=== PATIENT | female | born 1940 | race Caucasian/White ===

== ENCOUNTER 2023-12-28 22:36 | Emergency (ER) | payer MEDICARE, MEDICAID, SELFPAY ==
[2023-12-28 22:44] VITALS: BP 115/85; PULSE 67; RESP 12; TEMP 37.1; O2SAT 95
[2023-12-28 22:46] VITALS: PULSE 63; RESP 20; O2SAT 99
[2023-12-28 22:56] VITALS: BMI 25.7
--- NOTE | 2023-12-28 22:59 | PD.EDSOB ---
ED SOB =RME/HPI General Chief Complaint: Shortness of Breath/Dyspnea Stated Complaint: SOB Time Seen by Provider: 12/28/23 22:42 Arrival date/time: 12/28/23 22:36 RME / HPI RME / HPI Narrative: Dr. Pérez?s Main ED Evaluation: 83yo female with pmhx TBI, HTN, HLD, GERD BIBA from [facility] presents to the ED for a chief complaint of shortness of breath x 1 hour. When asked if the patient has had chest pain or a cough, she nods her head yes. Patient does not really talk and is unable to provide any history. No known allergies. Related Data Home Medications ?Medication ?Instructions ?Recorded ?Confirmed bisacodyl 10 mg rectal suppository See Rx Instructions .Route 08/15/19 08/15/19 (Dulcolax (bisacodyl)) .COMPLEX PRN Constipation calcium 500 mg (as 1 tab PO BID 08/15/19 08/15/19 carbonate)-vitamin D3 5 mcg (200 unit) tablet (Oyster Shell Calcium-Vitamin D3) docusate sodium 250 mg capsule 250 mg PO BID 08/15/19 08/15/19 magnesium hydroxide 400 mg/5 mL See Rx Instructions .Route 08/15/19 08/15/19 oral suspension (Milk of Magnesia) .COMPLEX PRN Constipation sodium phosphates 19 gram-7 See Rx Instructions .Route 08/15/19 08/15/19 gram/118 mL enema (Fleet Enema) .COMPLEX PRN Constipation Previous Rx's ?Medication ?Instructions ?Recorded balsam ben-castor oil topical 1 applicatio top BID #60 grams 08/27/19 ointment (Venelex topical ointment) levothyroxine 25 mcg tablet 75 mcg (3 x 25 mcg) PO ACBR #30 08/27/19 tabs midodrine 2.5 mg tablet 2.5 mg PO TID #90 tabs 08/27/19 amoxicillin 875 mg-potassium 1 tab PO BID #10 tabs 12/29/23 clavulanate 125 mg tablet Allergies Allergy/AdvReac Type Severity Reaction Status Date / Time No Known Allergies Allergy Verified 04/12/18 10:58 Review of Systems Review of Systems ROS Unobtainable: other (due to the patient mumbling) Past Medical History Past Medical History NEUROLOGIC: Positive Head Trauma and Traumatic Brain Injury CARDIAC: Positive Cardiac Disorders, Atherosclerotic Heart Disease, Peripheral Vascular Disease, Hypercholesterolemia, Hypertension and Hypotension; Negative Congestive Heart Failure RESPIRATORY: Positive Bronchitis; Negative Chronic Obstructive Pulmonary Disease (COPD) GASTROINTESTINAL: Positive Gastroesophageal Reflux Disease GENITOURINARY: Negative Renal Disease MUSCULOSKELETAL: Positive Musculoskeletal Disorders, Arthritis and Degenerative Joint Disease ENT: Positive Cataracts and Head Trauma ENDOCRINE: Positive Hypothyroidism; Negative Diabetes Mellitus Type 1 or Diabetes Mellitus Type 2 PSYCHO/SOCIAL: Positive Depression OTHER HISTORY: Negative Cancer Social History SMOKING STATUS: Never smoker ED Exam Narrative Physical exam: GENERAL APPEARANCE: AxOx4, generally well-appearing, no acute distress. HEENT: NC, AT. MMM. EOMI, clear conjunctiva, oropharynx clear. NECK: Supple without lymphadenopathy. No stiffness or restricted ROM. HEART: Normal rate and regular rhythm, normal S1/S1, no m/r/g LUNGS: Diminished breath sounds bilaterally. Rhoncherous when she mumbles. Is saturating at 92% on room air. No crackles or wheezes are heard. ABDOMEN: Soft, nontender, nondistended with good bowel sounds heard. BACK: No midline C/T/L spine pain or deformity, No CVAT, no obvious deformity. EXTREMITIES: Without cyanosis, clubbing or edema. MUSCULOSKELETAL: FROM of all major joints, no chest tenderness NEUROLOGICAL: Grossly nonfocal. Alert and oriented, moving all 4 extremities. CN not formally tested but appear grossly intact. Observed to ambulate with normal gait. Skin: Warm and dry without any rash. Course Course Course Narrative: CXR is ordered for determining the etiology of shortness of breath. Quality Measures none Orders Category Date Time Status Bedside COVID-19 Antigen Test NOW Care 12/28/23 23:00 Active Bedside Influenza A&B Antigen Test NOW Care 12/28/23 23:[address] Screening NOW Care 12/29/23 00:07 Active EKG (ED ONLY) *Do not use* NOW Care 12/28/23 23:[address] angio chest Stat Exams 12/29/23 00:07 Taken EKG (ED Only) Stat Exams 12/28/23 23:00 Draft XR chest 1V Stat Exams 12/28/23 23:00 Completed CBC Stat Lab 12/28/23 23:28 Completed CMP [Comprehensive Metabolic Panel] Stat Lab 12/28/23 23:28 Completed RSV [Respiratory Syncytial Virus Ag] Stat Lab 12/29/23 00:08 Completed cefTRIAXone/D5w 1gm IV premix [Rocephin/D5w 1gm IV Med 12/29/23 02:49 Discontinued premix] 50 ml IV X1 Vital Signs Vital signs: Vital Signs Temperature 98.8 F 12/28/23 22:44 Pulse Rate 67 12/28/23 22:44 Respiratory Rate 12 12/28/23 22:44 Blood Pressure 115/85 H 12/28/23 22:44 Pulse Oximetry (%) 95 12/28/23 22:44 Oxygen Delivery Method Room Air 12/28/23 22:44 Shortness of Breath / Dyspnea MDM Narrative MDM Narrative:: Scribe Attestation: 12/28/23 - Mitra Downs, scribing for and in the presence of Dr. Pérez. Patient data External records reviewed:: [facility] previous records (Per chart review, patient was seen here on 08/11/19 for a UTI.) and Long Term records (Per [facility], patient is a full code.) Clinical information provided by:: none Social determinants that could affect healthcare access:: none Patient has the following chronic illnesses:: TBI, HTN, HLD, GERD How is presenting disease/condition affected by chronic disease/condition?: exacerbated by Evaluation data The following diagnostics were reviewed and interpreted by me:: lab results, radiology exam(s) and EKG tracing(s) Lab and/or radiology exams considered but not ordered:: none Interpretation Summary: EKG done at 2324, sinus rhythm, rate of 63, RBBB, normal intervals, no acute ST or T wave changes, no STEMI, according to my interpretation. ---- [place] [facility] Report Signed Patient: ALIYA LYLE. Record#: [id number] Birthdate: 1940 Age/Sex: 83 / F Location: [facility] Attending Dr: Ordering Physician: Laureano Pérez MD Date of Service: 12/28/23 Procedure(s): XR chest 1V Accession Number(s): [id number] cc: Laureano Pérez MD; Manuel Orta MD; John Maharaj MD~ Examination: AP chest single view Technique one AP portable semiupright chest single view Exam date and time: December 28, 2023 1112 hrs. Comparison August 24, 2019 Indications: Onset shortness of breath today. Findings: No significant cardiac enlargement Moderate ectasia enlargement thoracic aorta Subsegmental atelectasis both lower lung zones No pneumonia or pulmonary edema Prominent osteopenia Impression: No pneumonia or pulmonary edema Dictated By: Manuel Orta MD Signed By: <Electronically signed by Manuel Orta MD in OV> 12/28/23 2350 ----- [facility] Preliminary Report Draft Patient: ALIYA LYLE Record#: [id number] Birthdate: 1940 Age/Sex: 83 / F Location: [facility] Attending Dr: Ordering Physician: Date of Service: Procedure(s): Accession Number(s): cc: ~ CT angiogram of the chest with intravenous contrast (axial sections with sagittal and coronal reformats) December 29, 2023 at 0145 hours. Clinical History: Rule out pulmonary thromboembolism Technique:Helical axial sections with sagittal and coronal reformats of the chest were obtained with intravenous contrast. Iterative reconstruction technique was employed to reduce patient radiation exposure. 3D/MIP reconstructed images were also provided. Comparison: No prior study is available for comparison. Findings: There is no filling defect within the pulmonary artery divisions to suggest pulmonary thromboembolism. The mediastinum demonstrates no evidence of mass or lymphadenopathy. The thoracic aorta is unremarkable. There is no pericardial effusion. Mucous plugging in the right lower lobe. Consolidation in the right lower lobe. Smaller consolidation in the right upper lobe. No evidence of pleural effusion or pneumothorax. Degenerative changes of the imaged portions of the spine. No acute fractures. The visualized upper abdominal viscera are unremarkable. Elevated left hemidiaphragm. Impression: 1. No CT evidence of pulmonary thromboembolism. 2. Mucous plugging in the right lower lobe. 3. Small foci of pneumonia in the right upper and lower lobes. 4. Elevated left hemidiaphragm of uncertain etiology. Report Electronically Signed By: Aman Reyes 12/29/2023 2:39:32 AM [EST] Medications / Prescriptions Medications or Prescriptions considered but not ordered:: none Medication administrations:: Medication Administration History Discontinued Medications Ceftriaxone Sodium/Dextrose (Rocephin/D5w 1gm Iv Premix) 50 mls @ 100 mls/hr IV X1 ONE Stop: 12/29/23 03:18 Last Infusion: 12/29/23 03:28 Dose: Infused Documented By: Admin: 12/29/23 02:55 Dose: 100 mls/hr Documented By: PAIGE see above, if any Consultations Consultation(s) initiated? (list below): No Diagnosis Shortness of Breath Differential Diagnosis: community acquired pneumonia, pulmonary embolism and other (aspiration pneumonia, bronchitis) Most likely diagnosis given after review of the tests above:: see below Admission Indicated Admission indicated?: not indicated Admission Request Was there a request for admission?: No Disposition Plan Disposition Plan: Discharge Discharge Attestation Discharge Attestation: The patient and all family members were given an opportunity to ask questions and understood the discharge instructions. Discharge instructions specifically effects, indications for sooner follow up or return to the emergency department, and the expected course of current diagnosis. Patient condition: Stable Discharge Plan Plan Patient Disposition: HOME (Self Care) Prescriptions/Referrals Prescriptions/Med Rec: New amoxicillin-pot clavulanate 875-125 mg tablet 1 tab PO BID Qty: 10 0RF No Action magnesium hydroxide [Milk of Magnesia] 400 mg/5 mL Suspension See Rx Instructions .ROUTE .COMPLEX PRN (Reason: Constipation) Rx Instructions: GIve 30 mls by mouth every 2nd day if no bowel movement as needed bisacodyl [Dulcolax (bisacodyl)] 10 mg Suppository See Rx Instructions .ROUTE .COMPLEX PRN (Reason: Constipation) Rx Instructions: Insert 1 suppository rectally every third day if no bowel movement as needed if Milk of Magnesia ineffective Fleet Enema 19-7 gram/118 mL Enema See Rx Instructions .ROUTE .COMPLEX PRN (Reason: Constipation) Rx Instructions: Insert 1 applicator rectally every third day if no bowel movement as needed, if dulcolax suppository ineffective calcium carbonate-vitamin D3 [Oyster Shell Calcium-Vit D3] 500 mg(1,250mg) -200 unit Tablet 1 tab PO BID docusate sodium 250 mg Capsule 250 mg PO BID balsam ben-castor oil [Venelex] Ointment 1 applicatio top BID Qty: 60 0RF levothyroxine 25 mcg Tablet 75 mcg PO ACBR Qty: 30 0RF midodrine 2.5 mg Tablet 2.5 mg PO TID Qty: 90 0RF Referrals: John Maharaj MD [Primary Care Provider] - In 1 week Problem List Clinical Impression: Pneumonia, Mucus plugging of bronchi Patient/Caregiver Discharge Instructions Education Materials: ED Pneumonia (Adult) Additional Instructions: Chest physio for 5 days. Take all antibiotics as prescribed Print Language: U[place] Stand Alone Forms: [employer] Award Info., Patient Portal Info Letter
--- NOTE | 2023-12-28 23:00 | EKG_ITS ---
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
[2023-12-28 23:37] LABS: Basophils % (Auto) 1 % (0-2.5); Eosinophils # (Auto) 0.2 Thou/mm3 (0.0-0.5); Eosinophils % (Auto) 2 % (0-10); Hematocrit 40.4 % (36.0-46.0); Hemoglobin 12.7 g/dL (12.0-16.0); Immature Granulocytes % (Auto) 0 % (0-0); Immature Granulocytes Auto 0.01 Thou/mm3 (0.00-0.00); Lymphocytes # (Auto) 2.6 Thou/mm3 (1.0-4.8); Lymphocytes % (Auto) 38 % (10-50); Mean Corpuscular HGB Conc 31.4 g/dl (31.0-37.0); Mean Corpuscular Hemoglobin 29.7 pg (25.0-35.0); Mean Corpuscular Volume 94 fL (80-100); Monocytes # (Auto) 0.6 Thou/mm3 (0.0-0.8); Monocytes % (Auto) 8 % (0-12); Neutrophils # (Auto) 3.4 Thou/mm3 (1.8-7.7); Neutrophils % (Auto) 51 % (37-80); Nucleated Red Blood Cell % 0 /100 WBC (0); Platelet Count 247 Thou/mm3 (140-440); RDW Standard Deviation 47.6 fL (36.4-46.3); Red Blood Count 4.28 Miln/mm3 (4.00-5.20); White Blood Count 6.8 Thou/mm3 (3.6-11.0)
[2023-12-28 23:56] LABS: Alanine Aminotransferase 18 U/L (10-49); Albumin, Serum 3.9 gm/dL (3.4-4.8); Albumin/Globulin Ratio 1.3 (1.2-2.2); Alkaline Phosphatase 64 U/L (46-116); Anion Gap 3 (7-16); Aspartate Amino Transferase 18 U/L (0-34); BUN/Creatinine Ratio 28 Ratio (12-20); Bilirubin,Total 0.3 mg/dL (0.3-1.2); Blood Urea Nitrogen 17 mg/dL (9-23); Calcium 9.9 mg/dL (8.3-10.6); Carbon Dioxide 32.5 mMol/L (20.0-31.0); Chloride 103 mMol/L (98-107); Creatinine (Component) 0.6 mg/dL (0.6-1.3); Estimated Creatinine Clearance 67.3 mL/min (>60); Glucose 88 mg/dL (74-106); Osmolality,Calculated 276 (275-295); Sodium 138 mMol/L (136-145); Total Protein 6.9 gm/dL (5.7-8.2); eGFR > 60 See Note
--- NOTE | 2023-12-29 00:07 | XR_ITS ---
Examination: CTA chest with intravenous contrast 2-D reconstructions 3-D reconstructions, vascular Date and time of exam: December 29, 2023 at 0145 hrs. Indications: Shortness of breath chest pain today CTDI: vol (mGy) 26.07 DLP: (mGycm) 724 Technique: Multiple axial sections of the thorax have been obtained. 3 mm slice thickness, from below the hemidiaphragms to above the apices of the lungs. Mediastinal and lung density settings have been obtained. 2-D sagittal and coronal reconstructions. 3-D angiographic renderings, 3-D volume renderings, 3D post processing, vascular maximum intensity projections obtained. Contrast administered is 100 cc [id number]. Low dose protocols were performed. One or more of the following dose reduction techniques were used; automated exposure control, adjustment of the mA and/or KV according to patient size, use of iterative reconstruction technique. Findings: Heavy thoracic aortic calcification no aneurysmal dilatation No significant enlargement pulmonary artery segments, no pulmonary artery emboli Heavy calcification left anterior descending coronary artery Secretions in right lower lobe bronchi with atelectasis versus pneumonia in the right lower lobe No visualized liver or splenic lesions No gallstones Spleen is not enlarged No pancreatic mass Kidneys partially visualized no hydronephrosis Elevated left hemidiaphragm Prominent thoracolumbar levoscoliosis Impression: Negative for pulmonary artery emboli Atelectasis versus mild pneumonia in the right lower lobe
[2023-12-29 00:39] VITALS: BP 105/63; PULSE 66; RESP 10; O2SAT 99
[2023-12-29 00:58] LABS: Respiratory Syncytial Virus Ag Negative (Negative)
[2023-12-29 02:00] VITALS: BP 96/60; PULSE 66; RESP 17; O2SAT 95
--- NOTE | 2023-12-29 02:40 | PRELIM_ITS ---
CT angiogram of the chest with intravenous contrast (axial sections with sagittal and coronal reforma ts) December 29, 2023 at 0145 hours.Clinical History: Rule out pulmonary thromboembolism Technique:He lical axial sections with sagittal and coronal reformats of the chest were obtained with intravenous contrast. Iterative reconstruction technique was employed to reduce patient radiation exposure. 3D/LA P reconstructed images were also provided. Comparison: No prior study is available for comparison. Fi ndings:There is no filling defect within the pulmonary artery divisions to suggest pulmonary thromboe mbolism. The mediastinum demonstrates no evidence of mass or lymphadenopathy. The thoracic aorta is u nremarkable. There is no pericardial effusion. Mucous plugging in the right lower lobe.Consolidation in the right lower lobe. Smaller consolidation in the right upper lobe.No evidence of pleural effusio n or pneumothorax.Degenerative changes of the imaged portions of the spine. No acute fractures.The vi sualized upper abdominal viscera are unremarkable.Elevated left hemidiaphragm.Impression:1. No CT kelsie dence of pulmonary thromboembolism.2. Mucous plugging in the right lower lobe.3. Small foci of pneumo stacey in the right upper and lower lobes.4. Elevated left hemidiaphragm of uncertain etiology. Report E lectronically Signed By: Aman Reyes 12/29/2023 2:39:32 AM [EST]
[2023-12-29] MEDS: cefTRIAXone/D5w 1gm IV premix 50 ML IV (02:55)
--- NOTE | 2023-12-29 03:35 | PC.NURSE ---
I called [facility] and spoke with Shelia HARRIS to whom I have full report regarding this Pt diagnosis and plan of care.
[2023-12-29 04:05] VITALS: BP 114/62; PULSE 63; RESP 16; TEMP 36.6; O2SAT 98
== END 2023-12-29 04:10 | disposition home or self-care (01) ==
PROVIDERS: Emergency Provider Emergency Medicine; PCP Family Medicine
DX: J18.9 Pneumonia, unspecified organism (principal); I44.0 Atrioventricular block, first degree; I45.10 Unspecified right bundle-branch block; I10 Essential (primary) hypertension; E78.00 Pure hypercholesterolemia, unspecified
CPT/HCPCS: 36415; 71045; 71275; 80053; 85025; 87400; 87634; 87811; 93005; 96365; 99285; A4649; J0696; Q9967

== ENCOUNTER 2024-05-09 11:10 | Inpatient (IN) | payer MEDICARE, MEDICAID, SELFPAY ==
[2024-05-09] VITALS (9 sets, daily range): BP systolic 98–155; BP diastolic 57–81; PULSE 81–99; RESP 12–81; TEMP 36.9–38.5; O2SAT 87–100; BMI 24.7
--- NOTE | 2024-05-09 11:45 | XR_ITS ---
Examination: AP chest single view TECHNIQUE: AP portable supine chest single view Exam date and time: May 09, 2024 1217 hours Comparison 02/26/2023 INDICATIONS: Sepsis alert today FINDINGS: Significant pneumonia right base and right middle lobe Atelectasis left base Normal heart size IMPRESSION: Significant pneumonia right base right middle lobe
--- NOTE | 2024-05-09 11:45 | EKG_ITS ---
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
--- NOTE | 2024-05-09 11:49 | PD.EDADULT ---
ED General RME/HPI General Chief complaint: Shortness of Breath/Dyspnea Stated complaint: SOB Time Seen by Provider: 05/09/24 11:46 Arrival date/time: 05/09/24 11:10 RME / HPI RME / HPI narrative: Patient is a 83 years old female with PMH of traumatic brain injury, HTN, hypothyroidism, HLD presented to the ED from SNF due to worsening SOB. She is non-verbal. Per EMS symptoms started several days ago but today her saturation was in 80s. She is full code. No other information is available. No fever reported by SNF. Related Data Home Medications ?Medication ?Instructions ?Recorded ?Confirmed bisacodyl 10 mg rectal suppository 10 mg [place] Q72H PRN Constipation 08/15/19 05/19/24 (Dulcolax (bisacodyl)) calcium 500 mg (as 1 tab PO BID 08/15/19 05/19/24 carbonate)-vitamin D3 5 mcg (200 unit) tablet (Oyster Shell Calcium-Vitamin D3) docusate sodium 250 mg capsule 100 mg PO BID 08/15/19 05/19/24 magnesium hydroxide 400 mg/5 mL 30 ml PO Q48H PRN Constipation 08/15/19 05/19/24 oral suspension (Milk of Magnesia) sodium phosphates 19 gram-7 See Rx Instructions .Route 08/15/19 05/10/24 gram/118 mL enema (Fleet Enema) .COMPLEX PRN Constipation levothyroxine 75 mcg tablet 75 mcg PO 1XD 05/10/24 05/19/24 nystatin-triamcinolone 100,000 1 applic topical 1XD 05/10/24 05/10/24 unit/g-0.1 % topical cream docusate sodium 100 mg capsule 200 mg PO BID 05/19/24 05/19/24 Previous Rx's ?Medication ?Instructions ?Recorded balsam ben-castor oil topical 1 applicatio top BID #60 grams 08/27/19 ointment (Venelex topical ointment) midodrine 2.5 mg tablet 2.5 mg PO TID #90 tabs 08/27/19 albuterol sulfate 90 mcg/actuation 1 inh inhalation QID PRN shortness 05/14/24 aerosol inhaler of breath or wheezing #8.5 grams atorvastatin 10 mg tablet 10 mg PO HS #90 tabs 05/14/24 Allergies Allergy/AdvReac Type Severity Reaction Status Date / Time No Known Allergies Allergy Verified 05/18/24 12:29 Review of Systems Review of Systems ROS Unobtainable: unobtainable due to medical condition ED Exam Narrative Physical exam: Gen: Well-developed and well-nourished female. HEENT: NCAT, PERRLA, EOMI, MMM, anicteric conjunctivae. CVS: normal S1 and S2. RRR. No M/R/G. Resp: rhonchi over BL bases. No rhonchi, rales, crackles or wheezing. Abd: soft, non-tender, non-distended. BS+ in all 4 quadrants. MSK: Good ROM in BUE & BLE. No edema or rash. Neuro: limited exam due to medical condition. Course Quality Measures none Orders Category Date Time Status Bedside Blood Glucose NOW Care 05/09/24 11:45 Completed Bedside COVID-19 Antigen Test NOW Care 05/09/24 13:09 Completed Bedside Influenza A&B Antigen Test NOW Care 05/09/24 13:09 Completed COVID-19 Screening Questionnaire NOW Care 05/09/24 13:05 Completed Grant Coordinator Q4H START 00 Care 05/09/24 11:45 Completed Continuous Pulse Oximetry NOW Care 05/09/24 11:46 Completed Decision to Admit X1 Care 05/09/24 13:04 Completed Insert IV NOW Care 05/09/24 11:45 Completed Strict Intake and Output Routine Care 05/09/24 11:45 Ordered Urinary Catheter NOW Care 05/09/24 11:46 Completed XR chest 1V SEPSIS PROTOCOL Stat Exams 05/09/24 11:45 Completed Blood Culture (Lab) Stat Lab 05/09/24 11:55 Completed CBC Stat Lab 05/09/24 12:01 Completed Comprehensive Metabolic Panel Stat Lab 05/09/24 12:01 Completed Lactate (Lactic Acid) Stat Lab 05/09/24 12:01 Completed Partial Thromboplastin Time Stat Lab 05/09/24 12:01 Completed Procalcitonin Stat Lab 05/09/24 12:01 Completed Prothrombin Time with INR Stat Lab 05/09/24 12:01 Completed Troponin I Stat Lab 05/09/24 12:01 Completed Urinalysis Stat Lab 05/09/24 13:05 Completed Urine Culture Stat Lab 05/09/24 13:05 Completed Cefepime Inj [Maxipime Inj] 2 gm Med 05/09/24 12:37 Discontinued SODIUM CHLORIDE 0.9% (Popper) [Ns 0.9% (P)] 50 ml IV X1 Sodium Chloride 0.9% 1000 ml [Ns] 1,000 ml Med 05/09/24 11:47 Discontinued IV 999 mls/hr EKG (RT) Stat RT 05/09/24 11:45 Draft Oxygen Delivery NOW RT 05/09/24 11:45 Completed Vital Signs Vital signs: Vital Signs Temperature 98.4 F 05/09/24 11:10 Pulse Rate 93 05/09/24 11:10 Respiratory Rate 20 05/09/24 11:10 Blood Pressure 98/80 05/09/24 11:10 Pulse Oximetry (%) 93 L 05/09/24 11:10 Oxygen Delivery Method Nasal Cannula 05/09/24 11:10 Oxygen Flow Rate 6 05/09/24 11:10 Procedures -ED EKG Interpretation #1: Date of EK05/09/24 Time of EK:24 Rate: 96 Interpretation: Reviewed by me EKG Impression: Normal sinus rhythm, [place] deviation (right) and Bundle branch block (right) MDM Patient data External records reviewed:: [facility] previous records and EMS form Clinical information provided by:: EMS Social determinants that could affect healthcare access:: none Patient has the following chronic illnesses:: traumatic brain injury, HTN, hypothyroidism, HLD How is presenting disease/condition affected by chronic disease/condition?: exacerbated by Evaluation data The following diagnostics were reviewed and interpreted by me:: lab results, radiology exam(s) and EKG tracing(s) Lab and/or radiology exams considered but not ordered:: CT chest Interpretation Summary: Pneumonia Medications Medications considered but not ordered:: na Medication administrations:: Medication Administration History Discontinued Medications Acetaminophen (Acetaminophen 325 Mg Tablet) 650 mg PO Q6H PRN PRN Reason: Fever >101.5 Stop: 06/08/24 14:00 Last Admin: 05/10/24 14:28 Dose: 650 mg Documented By: ARELIS Acetaminophen (Acetaminophen 325 Mg Tablet) 650 mg PO Q6H PRN; Protocol PRN Reason: Fever >101.5 Stop: 06/08/24 14:00 Albuterol/Ipratropium (Albuterol/Ipratropium (Duoneb) Rt Poly 3 Ml Nebu) 3 ml INH Q4HRRT PRN PRN Reason: SHORTNESS OF BREATH OR WHEEZE Stop: 06/08/24 14:59 Last Admin: 05/12/24 10:57 Dose: 3 ml Documented By: Admin: 05/10/24 01:10 Dose: 3 ml Documented By: LAUREN Albuterol/Ipratropium (Albuterol/Ipratropium (Duoneb) Rt Poly 3 Ml Nebu) 3 ml INH Q6HR SANDOVAL Stop: 06/11/24 17:59 Last Admin: 05/14/24 19:14 Dose: Not Given Documented By: MM Non-Admin Reason: Not In Room Admin: 05/14/24 13:14 Dose: 3 ml Documented By: Admin: 05/14/24 07:40 Dose: 3 ml Documented By: Admin: 05/14/24 00:40 Dose: 3 ml Documented By: Admin: 05/13/24 19:21 Dose: 3 ml Documented By: Admin: 05/13/24 13:09 Dose: 3 ml Documented By: Admin: 05/13/24 07:43 Dose: 3 ml Documented By: Admin: 05/13/24 00:10 Dose: 3 ml Documented By: Admin: 05/12/24 19:13 Dose: 3 ml Documented By: LAUREN Atorvastatin Calcium (Atorvastatin Calcium 10 Mg Tablet) 10 mg PO HS SANDOVAL Stop: 06/09/24 20:59 Last Admin: 05/13/24 21:10 Dose: 10 mg Documented By: Admin: 05/12/24 21:59 Dose: Not Given Documented By: EARNEST Non-Admin Reason: Patient Refused Admin: 05/11/24 21:09 Dose: 10 mg Documented By: Admin: 05/10/24 21:18 Dose: 10 mg Documented By: MS Azithromycin (Azithromycin Inj 500 Mg Vial) Confirm Administered Dose 500 mg IV .STK-MED ONE Stop: 05/11/24 14:22 Last Admin: 05/11/24 15:53 Dose: Not Given Documented By: ARELIS Non-Admin Reason: Override Medication Docusate Sodium (Docusate Sod Liqd 100 Mg/10 Ml Udc) 100 mg PO BID SANDOVAL; Protocol Stop: 06/09/24 08:59 Last Admin: 05/14/24 08:52 Dose: 100 mg Documented By: MARIA A Admin: 05/13/24 21:10 Dose: 100 mg Documented By: Admin: 05/13/24 09:00 Dose: 100 mg Documented By: MARIA A Admin: 05/12/24 22:00 Dose: Not Given Documented By: EARNEST Non-Admin Reason: Patient Refused Admin: 05/12/24 09:22 Dose: 100 mg Documented By: Admin: 05/11/24 21:12 Dose: 100 mg Documented By: Admin: 05/11/24 08:58 Dose: 100 mg Documented By: Admin: 05/10/24 21:09 Dose: 100 mg Documented By: Admin: 05/10/24 08:44 Dose: 100 mg Documented By: ARELIS Enoxaparin Sodium (Enoxaparin Sod Inj 40 Mg/0.4 Ml Syringe) 40 mg SC QDAY SANDOVAL Stop: 05/24/24 08:59 Last Admin: 05/14/24 08:53 Dose: 40 mg Documented By: MARIA A Admin: 05/13/24 09:00 Dose: 40 mg Documented By: MARIA A Admin: 05/12/24 09:22 Dose: 40 mg Documented By: Admin: 05/11/24 08:58 Dose: 40 mg Documented By: Admin: 05/10/24 08:44 Dose: 40 mg Documented By: ARELIS Furosemide (Furosemide Inj 10 Mg/Ml Vial 2 Ml) 20 mg IVP X1 ONE Stop: 05/12/24 10:59 Last Admin: 05/12/24 11:38 Dose: 20 mg Documented By: KRISSY Sodium Chloride (Ns) 1,000 mls @ 999 mls/hr IV .Q1H1M ONE Stop: 05/09/24 12:47 Last Infusion: 05/09/24 14:05 Dose: Infused Documented By: Admin: 05/09/24 12:39 Dose: 999 mls/hr Documented By: JOYA Cefepime HCl 2 gm/ Sodium (Chloride) 50 mls @ 100 mls/hr IV X1 ONE Stop: 05/09/24 13:06 Last Infusion: 05/09/24 14:05 Dose: Infused Documented By: Admin: 05/09/24 12:45 Dose: 100 mls/hr Documented By: JOYA Ceftriaxone Sodium/Dextrose (Rocephin/D5w 1gm Iv Premix) 1 gm in 50 mls @ 100 mls/hr IV QDAY@2100 SANDOVAL Stop: 05/16/24 20:59 Last Admin: 05/10/24 00:50 Dose: 100 mls/hr Documented By: CVL Azithromycin 500 mg/ Sodium (Chloride) 250 mls @ 250 mls/hr IV X1 ONE Stop: 05/09/24 16:38 Last Infusion: 05/09/24 17:47 Dose: Infused Documented By: Admin: 05/09/24 16:47 Dose: 250 mls/hr Documented By: JOYA Azithromycin 250 mg/ Sodium (Chloride) 250 mls @ 250 mls/hr IV QDAY@1400 SANDOVAL Stop: 05/17/24 13:59 Last Admin: 05/14/24 13:13 Dose: 250 mls/hr Documented By: MARIA A Infusion: 05/13/24 15:03 Dose: Infused Documented By: MARIA A Admin: 05/13/24 14:03 Dose: 250 mls/hr Documented By: MARIA A Infusion: 05/12/24 16:17 Dose: Infused Documented By: MARIA A Admin: 05/12/24 15:17 Dose: 250 mls/hr Documented By: Infusion: 05/11/24 15:32 Dose: Infused Documented By: Admin: 05/11/24 14:32 Dose: 250 mls/hr Documented By: Infusion: 05/10/24 15:28 Dose: Infused Documented By: Admin: 05/10/24 14:28 Dose: 250 mls/hr Documented By: ARELIS Sodium Chloride (Ns) 1,000 mls @ 75 mls/hr IV .[id number] [facility] Stop: 06/08/24 15:41 Last Admin: 05/12/24 05:38 Dose: 75 mls/hr Documented By: Infusion: 05/12/24 02:25 Dose: Infused Documented By: Admin: 05/11/24 13:05 Dose: 75 mls/hr Documented By: Infusion: 05/11/24 10:28 Dose: Infused Documented By: Admin: 05/10/24 21:08 Dose: 75 mls/hr Documented By: Infusion: 05/10/24 18:50 Dose: Infused Documented By: Admin: 05/10/24 05:30 Dose: 75 mls/hr Documented By: Infusion: 05/10/24 05:30 Dose: Infused Documented By: Admin: 05/09/24 16:48 Dose: 75 mls/hr Documented By: JOYA Ceftriaxone Sodium 2 gm/ (Sodium Chloride) 50 mls @ 100 mls/hr IV HS SANDOVAL Stop: 05/17/24 20:59 Last Admin: 05/11/24 21:15 Dose: 100 mls/hr Documented By: Infusion: 05/10/24 21:39 Dose: Infused Documented By: Admin: 05/10/24 21:09 Dose: 100 mls/hr Documented By: Ceftriaxone Sodium/Dextrose (Rocephin/D5w 2gm) 2 gm in 50 mls @ 100 mls/hr IV HS SANDOVAL Stop: 05/17/24 20:59 Last Admin: 05/13/24 21:10 Dose: 100 mls/hr Documented By: Infusion: 05/12/24 22:10 Dose: Infused Documented By: Admin: 05/12/24 21:40 Dose: 100 mls/hr Documented By: EARNEST Levothyroxine Sodium (Levothyroxine Sodium 25 Mcg Tablet) 75 mcg PO ACBR SANDOVAL Stop: 06/09/24 05:59 Last Admin: 05/14/24 05:28 Dose: 75 mcg Documented By: Admin: 05/13/24 05:29 Dose: 75 mcg Documented By: Admin: 05/12/24 05:33 Dose: 75 mcg Documented By: Admin: 05/11/24 05:05 Dose: 75 mcg Documented By: Admin: 05/10/24 05:30 Dose: 75 mcg Documented By: MARIA Methylprednisolone Sodium Succinate (Methylprednisolone Sod Succ 40 Mg Vial) 40 mg IVP QDAY SANDOVAL Stop: 05/19/24 15:14 Last Admin: 05/14/24 08:53 Dose: 40 mg Documented By: MARIA A Admin: 05/13/24 09:01 Dose: 40 mg Documented By: MARIA A Admin: 05/12/24 15:41 Dose: 40 mg Documented By: KRISSY Ondansetron HCl (Ondansetron Inj 2 Mg/Ml Inj 2 Ml) 4 mg IV Q6H PRN; Protocol PRN Reason: NAUSEA OR VOMITING Stop: 06/08/24 14:00 Oseltamivir Phosphate (Oseltamivir 75 Mg Capsule) 75 mg PO X1 ONE Stop: 05/09/24 14:37 Last Admin: 05/09/24 14:55 Dose: 75 mg Documented By: JOYA Oseltamivir Phosphate (Oseltamivir 30 Mg Capsule) 30 mg PO BID SANDOVAL Stop: 05/14/24 08:59 Last Admin: 05/10/24 08:45 Dose: 30 mg Documented By: ARELIS Oseltamivir Phosphate (Oseltamivir 75 Mg Capsule) 75 mg PO BID SANDOVAL Stop: 05/14/24 20:59 Last Admin: 05/14/24 08:53 Dose: 75 mg Documented By: MARIA A Admin: 05/13/24 21:10 Dose: 75 mg Documented By: Admin: 05/13/24 09:01 Dose: 75 mg Documented By: MARIA A Admin: 05/12/24 21:40 Dose: 75 mg Documented By: Admin: 05/12/24 09:21 Dose: 75 mg Documented By: Admin: 05/11/24 21:09 Dose: 75 mg Documented By: Admin: 05/11/24 08:58 Dose: 75 mg Documented By: Admin: 05/10/24 21:10 Dose: 75 mg Documented By: Pantoprazole Sodium (Pantoprazole Inj 40 Mg Vial) 40 mg IVP QDAY SANDOVAL Stop: 06/09/24 08:59 Last Admin: 05/14/24 08:53 Dose: 40 mg Documented By: MARIA A Admin: 05/13/24 09:01 Dose: 40 mg Documented By: MARIA A Admin: 05/12/24 09:21 Dose: 40 mg Documented By: Admin: 05/11/24 08:58 Dose: 40 mg Documented By: Admin: 05/10/24 08:44 Dose: 40 mg Documented By: ARELIS Potassium Chloride (Potassium Chloride 10% 20 Meq/15 Ml Udc) 40 meq GT X1 ONE Stop: 05/12/24 08:29 Last Admin: 05/12/24 09:22 Dose: 40 meq Documented By: KRISSY Potassium Chloride (Potassium Chloride 20 Meq Tabcr) 40 meq PO X1 ONE Stop: 05/14/24 08:29 Last Admin: 05/14/24 08:52 Dose: 40 meq Documented By: MARIA A as above Consultations Consultation(s) initiated? (list below): No Diagnosis Differential Diagnosis ED Complaint MDM: PNA, UTI, pulmonary edema Most likely diagnosis given after review of the tests above:: Sepsis 2/2 PNA Admission Indicated Admission indicated?: indicated Explain why admission is indicated or not indicated:: Patient has sepsis 2/2 pneumonia, needs IV ABx and work up. Admission Request Was there a request for admission?: Yes Admission Attestation Admission request attestation: Discussed case with [] from Hospitalist service regarding admission. Discussed patients ED course, exam findings, labs, and radiology results. The Hospitalist [agrees,declines] to accept the patient for admission. Disposition Plan Disposition Plan: Admit Medical Decision Making Differential Diagnosis Differential Diagnosis: PNA, UTI, pulmonary edema Lab Data 05/13/24 04:35 05/13/24 04:35 Labs: Lab Results 05/09/24 05/09/24 Range/Units 12:01 13:05 WBC 16.9 H (3.6-11.0) Thou/mm3 RBC 4.54 (4.00-5.20) Miln/mm3 Hgb 13.5 (12.0-16.0) g/dL Hct 42.2 (36.0-46.0) % MCV 93 (80-100) fL MCH 29.7 (25.0-35.0) pg MCHC 32.0 (31.0-37.0) g/dl RDW Std Deviation 45.9 (36.4-46.3) fL Plt Count 210 (140-440) Thou/mm3 Neut % (Auto) 83 H (37-80) % Lymph % (Auto) 12 (10-50) % [place] % (Auto) 4 (0-12) % Eos % (Auto) 0 (0-10) % Baso % (Auto) 0 (0-2.5) % Neut # (Auto) 14.1 H (1.8-7.7) Thou/mm3 Lymph # (Auto) 1.9 (1.0-4.8) Thou/mm3 [place] # (Auto) 0.7 (0.0-0.8) Thou/mm3 Eos # (Auto) 0.0 (0.0-0.5) Thou/mm3 Baso # (Auto) 0.1 (0.0-0.2) Thou/mm3 Immature Gran # (Auto) 0.06 H (0.00-0.00) Thou/mm3 Absolute Nucleated RBC 0.00 (0.00-0.00) Thou/mm3 Immature Gran % 0 (0-0) % Nucleated RBC % 0 (0) /100 WBC PT 11.5 (9.0-12.2) Seconds INR 1.1 (0.9-1.3) APTT 27.1 (22.0-36.0) Seconds Sodium 138 (136-145) mMol/L Potassium 4.1 (3.4-5.1) mMol/L Chloride 98 (98-107) mMol/L Carbon Dioxide 30.8 (20.0-31.0) mMol/L Anion Gap 9 (7-16) BUN 15 (9-23) mg/dL Creatinine 0.7 (0.6-1.3) mg/dL Estim Creat Clear Calc 52.4 L (>60) mL/min eGFR > 60 (60 - ) See Note BUN/Creatinine Ratio 21 H (12-20) Ratio Glucose 119 H (74-106) mg/dL Calculated Osmolality 277 (275-295) Lactic Acid 4.0 H (0.4-2.0) mMol/L Calcium 9.5 (8.3-10.6) mg/dL Corrected Calcium 9.5 (8.5-10.1) mg/dL Total Bilirubin 0.6 (0.3-1.2) mg/dL AST 21 (0-34) U/L ALT 9 L (10-49) U/L Alkaline Phosphatase 59 (46-116) U/L Troponin I < 0.020 (0.0-0.045) ng/mL Total Protein 7.4 (5.7-8.2) gm/dL Albumin 4.1 (3.4-4.8) gm/dL Globulin 3.3 (2.3-3.5) gm/dL Albumin/Globulin Ratio 1.2 (1.2-2.2) Procalcitonin 0.76 H (0.0-0.49) ng/ml Ur Collection Type Catheter Urine Color Yellow (Lt Yel-Yel) Urine Clarity Turbid A (Clear/Hazy) Urine pH 6.0 (5.0-7.0) Ur Specific [place] 1.025 (1.001-1.035) Urine Protein 1+ A (Neg - Trace) Urine Glucose (UA) Negative (Negative) Urine Ketones Negative (Negative) Urine Blood 1+ A (Negative) Urine Nitrite Negative (Negative) Urine Bilirubin Negative (Negative) Urine Urobilinogen (Auto) Negative (0.0-1.0) mg/dL Ur Leukocyte Esterase Positive (Negative) Urine RBC 10 H (0-3) /hpf Urine WBC 8 H (0-5) /hpf Ur Squamous Epith Cells 13 H (0-5) /hpf Urine Bacteria None (None) Discharge Plan Plan Patient Disposition: Admit Acute Care w/in Hospital Problem List Clinical Impression: Community acquired pneumonia MD Attestation MD Attestation The patient was seen by the PGY-2. I, the supervising physician also encountered and examined the patient, remaining available for consultation as needed. With the PGY-2, I participated in the analysis and supervised the managment, treatment plan, medical decision making and documentation. I agree with the plan and documentation.
[2024-05-09 12:21] LABS: Basophils # (Auto) 0.1 Thou/mm3 (0.0-0.2); Basophils % (Auto) 0 % (0-2.5); Eosinophils % (Auto) 0 % (0-10); Hematocrit 42.2 % (36.0-46.0); Hemoglobin 13.5 g/dL (12.0-16.0); Immature Granulocytes % (Auto) 0 % (0-0); Immature Granulocytes Auto 0.06 Thou/mm3 (0.00-0.00); Lymphocytes # (Auto) 1.9 Thou/mm3 (1.0-4.8); Lymphocytes % (Auto) 12 % (10-50); Mean Corpuscular Hemoglobin 29.7 pg (25.0-35.0); Mean Corpuscular Volume 93 fL (80-100); Monocytes # (Auto) 0.7 Thou/mm3 (0.0-0.8); Monocytes % (Auto) 4 % (0-12); Neutrophils # (Auto) 14.1 Thou/mm3 (1.8-7.7); Neutrophils % (Auto) 83 % (37-80); Nucleated Red Blood Cell % 0 /100 WBC (0); Platelet Count 210 Thou/mm3 (140-440); RDW Standard Deviation 45.9 fL (36.4-46.3); Red Blood Count 4.54 Miln/mm3 (4.00-5.20); White Blood Count 16.9 Thou/mm3 (3.6-11.0)
[2024-05-09 12:37] LABS: INR 1.1 (0.9-1.3); Partial Thromboplastin Time 27.1 Seconds (22.0-36.0); Prothrombin Time 11.5 Seconds (9.0-12.2)
[2024-05-09] MEDS: SODIUM CHLORIDE 0.9% 1000 ML 1,000 ML 999 ML IV (12:39)
[2024-05-09] MEDS: CEFEPIME INJ 2 GM in SODIUM CHLORIDE 0.9% (Popper) 50 ML IV (12:45)
[2024-05-09 12:52] LABS: Alanine Aminotransferase 9 U/L (10-49); Albumin, Serum 4.1 gm/dL (3.4-4.8); Albumin/Globulin Ratio 1.2 (1.2-2.2); Alkaline Phosphatase 59 U/L (46-116); Anion Gap 9 (7-16); Aspartate Amino Transferase 21 U/L (0-34); BUN/Creatinine Ratio 21 Ratio (12-20); Bilirubin,Total 0.6 mg/dL (0.3-1.2); Blood Urea Nitrogen 15 mg/dL (9-23); Calcium 9.5 mg/dL (8.3-10.6); Calcium (Corrected) 9.5 mg/dL (8.5-10.1); Carbon Dioxide 30.8 mMol/L (20.0-31.0); Chloride 98 mMol/L (98-107); Creatinine (Component) 0.7 mg/dL (0.6-1.3); Estimated Creatinine Clearance 52.4 mL/min (>60); Globulin 3.3 gm/dL (2.3-3.5); Glucose 119 mg/dL (74-106); Osmolality,Calculated 277 (275-295); Potassium 4.1 mMol/L (3.4-5.1); Procalcitonin 0.76 ng/ml (0.0-0.49); Sodium 138 mMol/L (136-145); Total Protein 7.4 gm/dL (5.7-8.2); Troponin I < 0.020 ng/mL (0.0-0.045); eGFR > 60 See Note
[2024-05-09 13:59] LABS: Collection Type, Urine Catheter
[2024-05-09 14:07] LABS: Bilirubin,Urine Negative (Negative); Blood,Urine 1+ (Negative); Clarity,Urine Turbid (Clear/Hazy); Color,Urine Yellow (Lt Yel-Yel); Glucose, Urine Negative (Negative); Ketones,Urine Negative (Negative); Leukocyte Esterase,Urine Positive (Negative); Nitrite,Urine Negative (Negative); Protein,Urine 1+ (Neg - Trace); RBC,Urine 10 /hpf (0-3); Specific Gravity,Urine 1.025 (1.001-1.035); Squamous Epithelial Cell,Urine 13 /hpf (0-5); Urobilinogen,Urine Negative mg/dL (0.0-1.0); WBC,Urine 8 /hpf (0-5)
[2024-05-09] MEDS: OSELTAMIVIR 75 MG CAPSULE PO (14:55)
[2024-05-09 15:18] LABS: Reflex Lactate? Y
[2024-05-09 16:35] LABS: Lactate (Lactic Acid) 2.3 mMol/L (0.4-2.0)
[2024-05-09] MEDS: AZITHROMYCIN INJ 500 MG in SODIUM CHLORIDE 0.9% 250 ML 250 ML 250 MG IV (16:47)
[2024-05-09] MEDS: SODIUM CHLORIDE 0.9% 1000 ML 1,000 ML 75 ML IV (16:48)
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
[2024-05-09 19:32] LABS: Reflex Lactate? Y
[2024-05-09 19:49] LABS: Lactic Acid, 3 HR 2.1 mMol/L (0.4-2.0)
[2024-05-10] VITALS (12 sets, daily range): BP systolic 105–131; BP diastolic 54–72; PULSE 67–88; RESP 13–19; TEMP 36.1–37.2; O2SAT 17–100; BMI 26.3; BMI 26.4
[2024-05-10] MEDS: cefTRIAXone/D5w 1gm IV premix 1 GM/50 ML BAG IV (00:50)
[2024-05-10] MEDS: ALBUTEROL/IPRATROPIUM (Duoneb) RT SOL 3 ML NEBU INH (01:10)
[2024-05-10] MEDS: SODIUM CHLORIDE 0.9% 1000 ML 1,000 ML 75 ML IV ×2 (05:30→21:08)
[2024-05-10] MEDS: LEVOTHYROXINE SODIUM 25 MCG TABLET 75 MCG PO (05:30)
[2024-05-10 08:05] LABS: Basophils % (Auto) 0 % (0-2.5); Eosinophils # (Auto) 0.2 Thou/mm3 (0.0-0.5); Eosinophils % (Auto) 2 % (0-10); Hematocrit 38.4 % (36.0-46.0); Immature Granulocytes % (Auto) 1 % (0-0); Immature Granulocytes Auto 0.04 Thou/mm3 (0.00-0.00); Lymphocytes % (Auto) 12 % (10-50); Mean Corpuscular HGB Conc 31.3 g/dl (31.0-37.0); Mean Corpuscular Hemoglobin 29.8 pg (25.0-35.0); Mean Corpuscular Volume 95 fL (80-100); Monocytes # (Auto) 0.4 Thou/mm3 (0.0-0.8); Monocytes % (Auto) 4 % (0-12); Neutrophils # (Auto) 7.1 Thou/mm3 (1.8-7.7); Neutrophils % (Auto) 82 % (37-80); Nucleated Red Blood Cell % 0 /100 WBC (0); Platelet Count 150 Thou/mm3 (140-440); RDW Standard Deviation 48.3 fL (36.4-46.3); Red Blood Count 4.03 Miln/mm3 (4.00-5.20); White Blood Count 8.7 Thou/mm3 (3.6-11.0)
[2024-05-10 08:25] LABS: Alanine Aminotransferase 11 U/L (10-49); Albumin, Serum 3.5 gm/dL (3.4-4.8); Albumin/Globulin Ratio 1.3 (1.2-2.2); Alkaline Phosphatase 57 U/L (46-116); Anion Gap 8 (7-16); Aspartate Amino Transferase 20 U/L (0-34); BUN/Creatinine Ratio 24 Ratio (12-20); Bilirubin,Total 0.4 mg/dL (0.3-1.2); Blood Urea Nitrogen 12 mg/dL (9-23); Calcium 8.6 mg/dL (8.3-10.6); Carbon Dioxide 30.1 mMol/L (20.0-31.0); Cardiac Risk Estimate 4.1 RATIO (3.7-5.6); Chloride 103 mMol/L (98-107); Cholesterol 205 mg/dL (132-200); Creatinine (Component) 0.5 mg/dL (0.6-1.3); Estimated Creatinine Clearance 75.6 mL/min (>60); Globulin 2.6 gm/dL (2.3-3.5); Glucose 99 mg/dL (74-106); HDL Cholesterol 50 mg/dL (40-60); LDL Cholesterol,Calculated 140 mg/dL (0-130); Magnesium 1.8 mg/dL (1.6-2.6); Osmolality,Calculated 280 (275-295); Phosphorous 3.1 mg/dL (2.4-5.1); Potassium 3.8 mMol/L (3.4-5.1); Sodium 141 mMol/L (136-145); Thyroid Stimulating Hormone 0.57 uIU/mL (0.55-4.78); Total Protein 6.1 gm/dL (5.7-8.2); Triglycerides 73 mg/dL (30-150); eGFR > 60 See Note
[2024-05-10] MEDS: ENOXAPARIN SOD INJ 40 MG/0.4 ML SYRINGE SC (08:44)
[2024-05-10] MEDS: DOCUSATE SOD LIQD 100 MG/10 ML UDC PO ×2 (08:44→21:09)
[2024-05-10] MEDS: PANTOPRAZOLE INJ 40 MG VIAL IVP (08:44)
[2024-05-10] MEDS: OSELTAMIVIR 30 MG CAPSULE PO (08:45)
[2024-05-10 13:27] LABS: Cocci Serology, IgM Negative (Negative)
[2024-05-10] MEDS: AZITHROMYCIN INJ 250 MG in SODIUM CHLORIDE 0.9% 250 ML 250 ML IV (14:28)
[2024-05-10] MEDS: ACETAMINOPHEN 325 MG TABLET 650 MG PO (14:28)
--- NOTE | 2024-05-10 14:48 | PC.SS ---
Rounding note: pending cultures, and treating for pneumonia.
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
[2024-05-10] MEDS: cefTRIAXone 2 GM in SODIUM CHLORIDE 0.9% (Popper) 50 ML IV (21:09)
[2024-05-10] MEDS: OSELTAMIVIR 75 MG CAPSULE PO (21:10)
[2024-05-10] MEDS: ATORVASTATIN CALCIUM 10 MG TABLET PO (21:18)
[2024-05-11] VITALS (7 sets, daily range): BP systolic 120–143; BP diastolic 62–89; PULSE 70–85; RESP 11–19; TEMP 36–36.4; O2SAT 90–99; BMI 28.0
[2024-05-11] MEDS: LEVOTHYROXINE SODIUM 25 MCG TABLET 75 MCG PO (05:05)
[2024-05-11] MEDS: ENOXAPARIN SOD INJ 40 MG/0.4 ML SYRINGE SC (08:58)
[2024-05-11] MEDS: DOCUSATE SOD LIQD 100 MG/10 ML UDC PO ×2 (08:58→21:12)
[2024-05-11] MEDS: PANTOPRAZOLE INJ 40 MG VIAL IVP (08:58)
[2024-05-11] MEDS: OSELTAMIVIR 75 MG CAPSULE PO ×2 (08:58→21:09)
[2024-05-11 09:27] LABS: Basophils % (Auto) 1 % (0-2.5); Eosinophils # (Auto) 0.3 Thou/mm3 (0.0-0.5); Eosinophils % (Auto) 4 % (0-10); Hematocrit 40.2 % (36.0-46.0); Hemoglobin 12.7 g/dL (12.0-16.0); Immature Granulocytes % (Auto) 0 % (0-0); Immature Granulocytes Auto 0.01 Thou/mm3 (0.00-0.00); Lymphocytes % (Auto) 14 % (10-50); Mean Corpuscular HGB Conc 31.6 g/dl (31.0-37.0); Mean Corpuscular Hemoglobin 29.5 pg (25.0-35.0); Mean Corpuscular Volume 94 fL (80-100); Monocytes # (Auto) 0.3 Thou/mm3 (0.0-0.8); Monocytes % (Auto) 5 % (0-12); Neutrophils # (Auto) 5.2 Thou/mm3 (1.8-7.7); Neutrophils % (Auto) 76 % (37-80); Nucleated Red Blood Cell % 0 /100 WBC (0); Platelet Count 122 Thou/mm3 (140-440); RDW Standard Deviation 47.5 fL (36.4-46.3); White Blood Count 6.8 Thou/mm3 (3.6-11.0)
[2024-05-11 09:59] LABS: Alanine Aminotransferase 9 U/L (10-49); Albumin, Serum 3.9 gm/dL (3.4-4.8); Albumin/Globulin Ratio 1.2 (1.2-2.2); Alkaline Phosphatase 58 U/L (46-116); Anion Gap 9 (7-16); Aspartate Amino Transferase 20 U/L (0-34); BUN/Creatinine Ratio 22 Ratio (12-20); Bilirubin,Total 0.2 mg/dL (0.3-1.2); Blood Urea Nitrogen 11 mg/dL (9-23); Calcium 9.4 mg/dL (8.3-10.6); Calcium (Corrected) 9.5 mg/dL (8.5-10.1); Carbon Dioxide 29.1 mMol/L (20.0-31.0); Chloride 105 mMol/L (98-107); Creatinine (Component) 0.5 mg/dL (0.6-1.3); Estimated Creatinine Clearance 75.8 mL/min (>60); Globulin 3.2 gm/dL (2.3-3.5); Glucose 111 mg/dL (74-106); Magnesium 1.8 mg/dL (1.6-2.6); Osmolality,Calculated 285 (275-295); Phosphorous 1.8 mg/dL (2.4-5.1); Potassium 3.5 mMol/L (3.4-5.1); Sodium 143 mMol/L (136-145); Total Protein 7.1 gm/dL (5.7-8.2); eGFR > 60 See Note
[2024-05-11 11:34] LABS: Cocci Serology, IgG Negative (Negative)
[2024-05-11] MEDS: SODIUM CHLORIDE 0.9% 1000 ML 1,000 ML 75 ML IV (13:05)
[2024-05-11] MEDS: AZITHROMYCIN INJ 250 MG in SODIUM CHLORIDE 0.9% 250 ML 250 ML IV (14:32)
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
--- NOTE | 2024-05-11 15:51 | PC.SS ---
SS follow up note; Blood and urine cultures pending, Patient is on IV ABX.
[2024-05-11] MEDS: ATORVASTATIN CALCIUM 10 MG TABLET PO (21:09)
[2024-05-11] MEDS: cefTRIAXone 2 GM in SODIUM CHLORIDE 0.9% (Popper) 50 ML IV (21:15)
[2024-05-12] VITALS (10 sets, daily range): BP systolic 118–136; BP diastolic 48–78; PULSE 71–82; RESP 11–20; TEMP 36.1–36.6; O2SAT 91–98
[2024-05-12] MEDS: LEVOTHYROXINE SODIUM 25 MCG TABLET 75 MCG PO (05:33)
[2024-05-12] MEDS: SODIUM CHLORIDE 0.9% 1000 ML 1,000 ML 75 ML IV (05:38)
[2024-05-12 06:11] LABS: Basophils % (Auto) 0 % (0-2.5); Eosinophils # (Auto) 0.3 Thou/mm3 (0.0-0.5); Eosinophils % (Auto) 5 % (0-10); Hematocrit 34.5 % (36.0-46.0); Immature Granulocytes % (Auto) 0 % (0-0); Immature Granulocytes Auto 0.02 Thou/mm3 (0.00-0.00); Lymphocytes # (Auto) 1.4 Thou/mm3 (1.0-4.8); Lymphocytes % (Auto) 23 % (10-50); Mean Corpuscular HGB Conc 31.9 g/dl (31.0-37.0); Mean Corpuscular Hemoglobin 29.7 pg (25.0-35.0); Mean Corpuscular Volume 93 fL (80-100); Monocytes # (Auto) 0.5 Thou/mm3 (0.0-0.8); Monocytes % (Auto) 8 % (0-12); Neutrophils # (Auto) 3.7 Thou/mm3 (1.8-7.7); Neutrophils % (Auto) 63 % (37-80); Nucleated Red Blood Cell % 0 /100 WBC (0); Platelet Count 158 Thou/mm3 (140-440); RDW Standard Deviation 46.7 fL (36.4-46.3); White Blood Count 5.9 Thou/mm3 (3.6-11.0)
[2024-05-12 06:39] LABS: Alanine Aminotransferase 8 U/L (10-49); Albumin, Serum 3.3 gm/dL (3.4-4.8); Albumin/Globulin Ratio 1.2 (1.2-2.2); Alkaline Phosphatase 51 U/L (46-116); Anion Gap 6 (7-16); Aspartate Amino Transferase 16 U/L (0-34); BUN/Creatinine Ratio 12 Ratio (12-20); Bilirubin,Total 0.2 mg/dL (0.3-1.2); Blood Urea Nitrogen 6 mg/dL (9-23); Calcium 8.4 mg/dL (8.3-10.6); Carbon Dioxide 31.3 mMol/L (20.0-31.0); Chloride 107 mMol/L (98-107); Creatinine (Component) 0.5 mg/dL (0.6-1.3); Estimated Creatinine Clearance 77.2 mL/min (>60); Globulin 2.7 gm/dL (2.3-3.5); Glucose 97 mg/dL (74-106); Magnesium 1.8 mg/dL (1.6-2.6); Osmolality,Calculated 284 (275-295); Phosphorous 2.4 mg/dL (2.4-5.1); Potassium 3.6 mMol/L (3.4-5.1); Sodium 144 mMol/L (136-145); eGFR > 60 See Note
[2024-05-12] MEDS: PANTOPRAZOLE INJ 40 MG VIAL IVP (09:21)
[2024-05-12] MEDS: OSELTAMIVIR 75 MG CAPSULE PO ×2 (09:21→21:40)
[2024-05-12] MEDS: DOCUSATE SOD LIQD 100 MG/10 ML UDC PO (09:22)
[2024-05-12] MEDS: ENOXAPARIN SOD INJ 40 MG/0.4 ML SYRINGE SC (09:22)
[2024-05-12] MEDS: POTASSIUM CHLORIDE 10% 20 MEQ/15 ML UDC 40 MEQ GT (09:22)
--- NOTE | 2024-05-12 10:02 | XR_ITS ---
Examination: AP chest single view Technique: AP portable semiupright chest single view Exam date and time: May 12, 2024 at 10:24 AM Comparison May 09, 2024 Indications: Significant pneumonia right base right middle lobe on chest film May 09, 2024 Findings: Subsegmental atelectasis in the right lower lung zone Atelectasis versus pneumonia left base especially retrocardiac Also suspicious for mild pneumonia left upper lobe Normal heart size Significant osteopenia Impression: Atelectasis versus pneumonia left base especially retrocardiac, clinical correlation advised Also suspicious for mild pneumonia left upper lobe
[2024-05-12] MEDS: ALBUTEROL/IPRATROPIUM (Duoneb) RT SOL 3 ML NEBU INH ×2 (10:57→19:13)
[2024-05-12] MEDS: FUROSEMIDE INJ 10 MG/ML VIAL 2 ML 20 MG IVP (11:38)
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
[2024-05-12] MEDS: AZITHROMYCIN INJ 250 MG in SODIUM CHLORIDE 0.9% 250 ML 250 ML IV (15:17)
[2024-05-12] MEDS: cefTRIAXone/D5w 2gm 2 GM/50 ML BAG IV (21:40)
[2024-05-13] VITALS (12 sets, daily range): BP systolic 102–133; BP diastolic 50–64; PULSE 63–93; RESP 16–18; TEMP 36.1–36.9; O2SAT 90–99
[2024-05-13] MEDS: ALBUTEROL/IPRATROPIUM (Duoneb) RT SOL 3 ML NEBU INH ×4 (00:10→19:21)
[2024-05-13] MEDS: LEVOTHYROXINE SODIUM 25 MCG TABLET 75 MCG PO (05:29)
[2024-05-13 06:11] LABS: Basophils % (Auto) 0 % (0-2.5); Eosinophils % (Auto) 0 % (0-10); Hematocrit 33.5 % (36.0-46.0); Hemoglobin 10.6 g/dL (12.0-16.0); Immature Granulocytes % (Auto) 0 % (0-0); Immature Granulocytes Auto 0.02 Thou/mm3 (0.00-0.00); Lymphocytes # (Auto) 0.8 Thou/mm3 (1.0-4.8); Lymphocytes % (Auto) 13 % (10-50); Mean Corpuscular HGB Conc 31.6 g/dl (31.0-37.0); Mean Corpuscular Hemoglobin 29.9 pg (25.0-35.0); Mean Corpuscular Volume 95 fL (80-100); Monocytes # (Auto) 0.2 Thou/mm3 (0.0-0.8); Monocytes % (Auto) 3 % (0-12); Neutrophils # (Auto) 5.3 Thou/mm3 (1.8-7.7); Neutrophils % (Auto) 83 % (37-80); Nucleated Red Blood Cell % 0 /100 WBC (0); Platelet Count 221 Thou/mm3 (140-440); RDW Standard Deviation 47.2 fL (36.4-46.3); Red Blood Count 3.54 Miln/mm3 (4.00-5.20); White Blood Count 6.4 Thou/mm3 (3.6-11.0)
[2024-05-13 06:32] LABS: Anion Gap 4 (7-16); BUN/Creatinine Ratio 25 Ratio (12-20); Blood Urea Nitrogen 10 mg/dL (9-23); Calcium 8.7 mg/dL (8.3-10.6); Carbon Dioxide 39.2 mMol/L (20.0-31.0); Chloride 100 mMol/L (98-107); Creatinine (Component) 0.4 mg/dL (0.6-1.3); Estimated Creatinine Clearance 96.5 mL/min (>60); Glucose 123 mg/dL (74-106); Osmolality,Calculated 284 (275-295); Potassium 3.5 mMol/L (3.4-5.1); Sodium 143 mMol/L (136-145); eGFR > 60 See Note
[2024-05-13] MEDS: DOCUSATE SOD LIQD 100 MG/10 ML UDC PO ×2 (09:00→21:10)
[2024-05-13] MEDS: ENOXAPARIN SOD INJ 40 MG/0.4 ML SYRINGE SC (09:00)
[2024-05-13] MEDS: PANTOPRAZOLE INJ 40 MG VIAL IVP (09:01)
[2024-05-13] MEDS: OSELTAMIVIR 75 MG CAPSULE PO ×2 (09:01→21:10)
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
[2024-05-13] MEDS: AZITHROMYCIN INJ 250 MG in SODIUM CHLORIDE 0.9% 250 ML 250 ML IV (14:03)
[2024-05-13] MEDS: cefTRIAXone/D5w 2gm 2 GM/50 ML BAG IV (21:10)
[2024-05-13] MEDS: ATORVASTATIN CALCIUM 10 MG TABLET PO (21:10)
[2024-05-14] VITALS (8 sets, daily range): BP systolic 118–137; BP diastolic 59–72; PULSE 59–93; RESP 16–20; TEMP 36.1–36.8; O2SAT 93–100
[2024-05-14] MEDS: ALBUTEROL/IPRATROPIUM (Duoneb) RT SOL 3 ML NEBU INH ×3 (00:40→13:14)
--- NOTE | 2024-05-14 05:01 | PC.NURSE ---
Dr. Pwoer notified regarding patient continuing to display new onset confusion. stated she will look into the patient's chart and maybe come up to see the patient.
[2024-05-14] MEDS: LEVOTHYROXINE SODIUM 25 MCG TABLET 75 MCG PO (05:28)
[2024-05-14] MEDS: DOCUSATE SOD LIQD 100 MG/10 ML UDC PO (08:52)
[2024-05-14] MEDS: POTASSIUM CHLORIDE 20 mEq TABCR 40 MEQ PO (08:52)
[2024-05-14] MEDS: OSELTAMIVIR 75 MG CAPSULE PO (08:53)
[2024-05-14] MEDS: PANTOPRAZOLE INJ 40 MG VIAL IVP (08:53)
[2024-05-14] MEDS: ENOXAPARIN SOD INJ 40 MG/0.4 ML SYRINGE SC (08:53)
--- NOTE | 2024-05-14 13:12 | PC.SS ---
SS set up transportation for patient to discharge back to [facility], SS contacted [facility] [place], Reference # [id number].
[2024-05-14] MEDS: AZITHROMYCIN INJ 250 MG in SODIUM CHLORIDE 0.9% 250 ML 250 ML IV (13:13)
--- NOTE | 2024-05-14 14:30 | PC.SS ---
SS has contacted [facility] x 3 and yet there has not been an assigned transportation team.
--- NOTE | 2024-05-14 16:07 | PC.SS ---
SS was contacted by [facility] providing transportation time for 425. SS contacted patient's nurse and updated her, as well as contacted patient's sister Marry to inform her that patient would be discharging today, Marry verbalized understanding. Nay from [facility] was also contacted. SS will stand by for further needs.
--- NOTE | 2024-05-14 16:16 | PC.NURSE ---
Approximate pickup time for discharge at 1730.
--- NOTE | 2024-05-14 16:30 | PC.NURSE ---
Report given to [facility] nurse Gonzalez.
--- NOTE | 2024-05-15 09:31 | PD.ADDDSCHGE ---
Addendum Discharge Addendum Date of report being addended: 05/14/24 Narrative: I reviewed labs, imaging, EKG, home medications and prior available records. Face to face evaluation was performed by me. I have personally examined the patient and discussed assessment and plan with the IM team. I reviewed the resident note and agree with the plan with exceptions as below. Acute encephalopathy, improved Possible asthma exacerbation Traumatic brain injury Hypothyroidism Acute febrile illness Possible sepsis Right lower lobe pneumonia Acute hypoxic respiratory failure Influenza A Lactic acidosis Finished a course of Tamiflu Finished a course of antibiotics for pneumonia Follow-up blood cultures: Showed gram-positive cocci. Follow-up identification: Staph hominis likely contamination. Sent another set of blood cultures: Negative to date Trend lactic acid: Improved Trend WBC: Downtrending Time spent is 40 minutes. More than 50% of the time was spent on patient education and coordination of care.
== END 2024-05-14 17:32 | disposition skilled nursing facility (03) | DRG 871 ==
LOC: SERX 14:28 → SERHOLD 14:32 → S3SX 05-10 06:23
PROVIDERS: Student in an Organized Health Care Education/Training Program; Admitting Provider Student in an Organized Health Care Education/Training Program; Emergency Provider Emergency Medicine; PCP Family Medicine; Visit Provider Student in an Organized Health Care Education/Training Program
DX: A41.89 Other specified sepsis (principal); J10.08 Influenza due to other identified influenza virus with other specified pneumonia; J96.01 Acute respiratory failure with hypoxia; J15.9 Unspecified bacterial pneumonia; N39.0 Urinary tract infection, site not specified; E87.20 Acidosis, unspecified; G93.40 Encephalopathy, unspecified; J45.901 Unspecified asthma with (acute) exacerbation; R31.9 Hematuria, unspecified; E78.5 Hyperlipidemia, unspecified; I95.9 Hypotension, unspecified; I10 Essential (primary) hypertension; E03.9 Hypothyroidism, unspecified; Z74.01 Bed confinement status; Z79.890 Hormone replacement therapy; Z79.899 Other long term (current) drug therapy; Z87.820 Personal history of traumatic brain injury; Z99.3 Dependence on wheelchair
CPT/HCPCS: 36415; 71045; 80048; 80053; 80061; 81001; 83605; 83735; 84100; 84145; 84443; 84484; 85025; 85610; 85730; 86331; 86635; 87040; 87077; 87081; 87086; 87186; 87400; 87811; 93005; 93225; 94640; 94667; 96365; 96367; 99285; A9270; J0456; J0692; J0696; J1650; J1940; J2470; J2919; J7030; J7050

== ENCOUNTER 2024-05-18 11:57 | Inpatient (IN) | payer MEDICARE, MEDICAID, SELFPAY ==
[2024-05-18 12:24] VITALS: PULSE 71; O2SAT 88
[2024-05-18 12:30] VITALS: BP 110/60; PULSE 71; RESP 14; TEMP 36.9; O2SAT 95
--- NOTE | 2024-05-18 12:35 | PC.NURSE ---
BROUGHT IN FROM [facility] FOR SOB/RULE OUT BRONCHITIS/PNA. PT DENIES ANY PAIN OR DISCOMFORT AT THIS TIME, AWAITING PROVIDER ASSESSMENT.
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
[2024-05-18 13:29] LABS: Basophils % (Auto) 0 % (0-2.5); Eosinophils % (Auto) 0 % (0-10); Hematocrit 42.1 % (36.0-46.0); Hemoglobin 13.3 g/dL (12.0-16.0); Immature Granulocytes % (Auto) 1 % (0-0); Immature Granulocytes Auto 0.09 Thou/mm3 (0.00-0.00); Lymphocytes % (Auto) 12 % (10-50); Mean Corpuscular HGB Conc 31.6 g/dl (31.0-37.0); Mean Corpuscular Hemoglobin 29.4 pg (25.0-35.0); Mean Corpuscular Volume 93 fL (80-100); Monocytes # (Auto) 0.3 Thou/mm3 (0.0-0.8); Monocytes % (Auto) 3 % (0-12); Neutrophils # (Auto) 7.1 Thou/mm3 (1.8-7.7); Neutrophils % (Auto) 84 % (37-80); Nucleated Red Blood Cell % 0 /100 WBC (0); Platelet Count 277 Thou/mm3 (140-440); RDW Standard Deviation 47.8 fL (36.4-46.3); Red Blood Count 4.52 Miln/mm3 (4.00-5.20); White Blood Count 8.5 Thou/mm3 (3.6-11.0)
[2024-05-18 13:48] LABS: Alanine Aminotransferase 23 U/L (10-49); Albumin/Globulin Ratio 1.3 (1.2-2.2); Alkaline Phosphatase 59 U/L (46-116); Anion Gap 5 (7-16); Aspartate Amino Transferase 25 U/L (0-34); BUN/Creatinine Ratio 18 Ratio (12-20); Bilirubin,Total 0.4 mg/dL (0.3-1.2); Blood Urea Nitrogen 11 mg/dL (9-23); Calcium 9.6 mg/dL (8.3-10.6); Calcium (Corrected) 9.6 mg/dL (8.5-10.1); Carbon Dioxide 35.6 mMol/L (20.0-31.0); Chloride 98 mMol/L (98-107); Creatinine (Component) 0.6 mg/dL (0.6-1.3); Globulin 3.1 gm/dL (2.3-3.5); Glucose 118 mg/dL (74-106); Osmolality,Calculated 277 (275-295); Potassium 4.6 mMol/L (3.4-5.1); Sodium 139 mMol/L (136-145); Total Protein 7.1 gm/dL (5.7-8.2); eGFR > 60 See Note
[2024-05-18 18:33] VITALS: BP 100/58; PULSE 76; RESP 18; O2SAT 91
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
[2024-05-18 18:57] VITALS: BP 112/57; PULSE 93
[2024-05-18] MEDS: FUROSEMIDE INJ 10 MG/ML VIAL 2 ML 20 MG IVP (18:57)
[2024-05-18] MEDS: CEFEPIME INJ 2 GM in SODIUM CHLORIDE 0.9% (Popper) 50 ML IV (18:59)
[2024-05-18 19:12] VITALS: BP 125/70; PULSE 74; RESP 18; TEMP 37; O2SAT 93
--- NOTE | 2024-05-18 20:53 | PC.NURSE ---
REPORT GIVEN TO JOELLE APONTE AT THIS TIME.
[2024-05-18 21:56] VITALS: BP 111/74; PULSE 66; RESP 17; TEMP 36.1; O2SAT 95
[2024-05-18] MEDS: metroNIDAZOLE/NS 500 MG IVPB 500 MG/100 ML BAG 200 MG IV (22:25)
[2024-05-19] VITALS (10 sets, daily range): BP systolic 92–120; BP diastolic 53–66; PULSE 69–86; RESP 5–16; TEMP 36.1–36.6; O2SAT 92–96; BMI 26.4
[2024-05-19 05:06] LABS: Basophils % (Auto) 0 % (0-2.5); Eosinophils # (Auto) 0.2 Thou/mm3 (0.0-0.5); Eosinophils % (Auto) 2 % (0-10); Hematocrit 40.1 % (36.0-46.0); Hemoglobin 12.6 g/dL (12.0-16.0); Immature Granulocytes % (Auto) 1 % (0-0); Immature Granulocytes Auto 0.09 Thou/mm3 (0.00-0.00); Lymphocytes # (Auto) 2.3 Thou/mm3 (1.0-4.8); Lymphocytes % (Auto) 24 % (10-50); Mean Corpuscular HGB Conc 31.4 g/dl (31.0-37.0); Mean Corpuscular Hemoglobin 29.2 pg (25.0-35.0); Mean Corpuscular Volume 93 fL (80-100); Monocytes # (Auto) 0.7 Thou/mm3 (0.0-0.8); Monocytes % (Auto) 7 % (0-12); Neutrophils # (Auto) 6.4 Thou/mm3 (1.8-7.7); Neutrophils % (Auto) 66 % (37-80); Nucleated Red Blood Cell % 0 /100 WBC (0); Platelet Count 238 Thou/mm3 (140-440); RDW Standard Deviation 47.8 fL (36.4-46.3); Red Blood Count 4.31 Miln/mm3 (4.00-5.20); White Blood Count 9.7 Thou/mm3 (3.6-11.0)
[2024-05-19 05:20] LABS: Alanine Aminotransferase 22 U/L (10-49); Albumin, Serum 3.8 gm/dL (3.4-4.8); Albumin/Globulin Ratio 1.3 (1.2-2.2); Alkaline Phosphatase 52 U/L (46-116); Anion Gap 10 (7-16); Aspartate Amino Transferase 24 U/L (0-34); BUN/Creatinine Ratio 26 Ratio (12-20); Bilirubin,Total 0.4 mg/dL (0.3-1.2); Blood Urea Nitrogen 13 mg/dL (9-23); Calcium 9.5 mg/dL (8.3-10.6); Calcium (Corrected) 9.7 mg/dL (8.5-10.1); Carbon Dioxide 35.1 mMol/L (20.0-31.0); Chloride 96 mMol/L (98-107); Creatinine (Component) 0.5 mg/dL (0.6-1.3); Globulin 2.9 gm/dL (2.3-3.5); Glucose 88 mg/dL (74-106); Osmolality,Calculated 280 (275-295); Phosphorous 3.4 mg/dL (2.4-5.1); Potassium 3.6 mMol/L (3.4-5.1); Sodium 141 mMol/L (136-145); Total Protein 6.7 gm/dL (5.7-8.2); eGFR > 60 See Note
[2024-05-19] MEDS: CEFEPIME INJ 2 GM in SODIUM CHLORIDE 0.9% (Popper) 50 ML IV ×3 (05:44→21:54)
[2024-05-19] MEDS: metroNIDAZOLE/NS 500 MG IVPB 500 MG/100 ML BAG 200 MG IV ×3 (07:07→22:07)
[2024-05-19] MEDS: ENOXAPARIN SOD INJ 40 MG/0.4 ML SYRINGE SC (09:40)
--- NOTE | 2024-05-19 12:15 | PD.RESPRO ---
Documentation for date of: 05/19/24 Subjective Subjective Interval history: Patient was seen and examined. No acute overnight. Patient passed swallow evaluation, restarting dysphagia diet. CBC unremarkable, CMP unremarkable, will continue current course cefepime, pending cultures. Patient is on 1 L saturating 94% during our evaluation. Continue to monitor, anticipate discharge in the next 24 hours. Exam Vital Signs Temp Pulse Resp BP Pulse Ox O2 Del Method O2 Flow Rate 97.4 F 78 8 L 120/53 L 93 L Nasal Cannula 2 05/19/24 07:57 05/19/24 07:57 05/19/24 07:57 05/19/24 07:57 05/19/24 07:57 05/19/24 04:00 05/19/24 04:00 Narrative Exam Gen: Well-developed and well-nourished. Slouched over, unable to maintain good posture. HEENT: NCAT, PERRLA, EOMI, MMM, anicteric conjunctivae. CVS: normal S1 and S2. RRR. No M/R/G. Resp: CTA B/L. No rhonchi, rales, crackles or wheezing. Abd: soft, non-tender, non-distended. MSK: Good ROM in BUE & BLE. No edema or rash. Neuro: CN II-XII grossly intact. Strength 5/5 in BUE & BLE. Alert and oriented x 2, baseline for patient. Mumbles words, appropriate responses, follows commands. Psych: appropriate mood and affect. Objective Labs 05/19/24 04:46 05/19/24 04:46 Labs: Laboratory Results - last 24 hr 05/18/24 05/19/24 13:21 04:46 WBC 8.5 9.7 RBC 4.52 4.31 Hgb 13.3 D 12.6 Hct 42.1 40.1 MCV 93 93 MCH 29.4 29.2 MCHC 31.6 31.4 RDW Std Deviation 47.8 H 47.8 H Plt Count 277 D 238 D Neut % (Auto) 84 H 66 Lymph % (Auto) 12 24 Wolfe % (Auto) 3 7 Eos % (Auto) 0 2 Baso % (Auto) 0 0 Neut # (Auto) 7.1 6.4 Lymph # (Auto) 1.0 2.3 Wolfe # (Auto) 0.3 0.7 Eos # (Auto) 0.0 0.2 Baso # (Auto) 0.0 0.0 Immature Gran # (Auto) 0.09 H 0.09 H Absolute Nucleated RBC 0.00 0.00 Immature Gran % 1 H 1 H Nucleated RBC % 0 0 Sodium 139 141 Potassium 4.6 3.6 D Chloride 98 96 L Carbon Dioxide 35.6 H 35.1 H Anion Gap 5 L 10 BUN 11 13 Creatinine 0.6 0.5 L Estim Creat Clear Calc Not Performed. Not Performed. eGFR > 60 > 60 BUN/Creatinine Ratio 18 26 H Glucose 118 H 88 Calculated Osmolality 277 280 Calcium 9.6 9.5 Corrected Calcium 9.6 9.7 Phosphorus 3.4 Magnesium 2.0 Total Bilirubin 0.4 0.4 AST 25 24 ALT 23 22 Alkaline Phosphatase 59 52 Total Protein 7.1 6.7 Albumin 4.0 3.8 Globulin 3.1 2.9 Albumin/Globulin Ratio 1.3 1.3 Quality Measures Quality Measures VTE prophylaxis Advance care planning discussed with:: patient Assessment & Plan Assessment Current Active Medications: Generic Name Dose Route Start Last Admin Trade Name Freq PRN Reason Stop Dose Admin Acetaminophen 650 mg 05/18/24 18:22 Acetaminophen 325 Mg Tablet PO 06/17/24 18:21 Q6H PRN Fever >100.4 or pain 1-3 Enoxaparin Sodium 40 mg 05/19/24 09:00 05/19/24 09:40 Enoxaparin Sod Inj 40 Mg/0.4 Ml Syringe SC 06/02/24 08:59 40 mg QDAY SANDOVAL Administration Cefepime HCl 2 gm/ Sodium 50 mls @ 100 mls/hr 05/18/24 18:25 05/19/24 05:44 Chloride IV 05/25/24 18:24 100 mls/hr Q8HR SANDOVAL Administration Metronidazole 500 mg in 100 mls @ 200 mls/hr 05/19/24 06:00 05/19/24 07:07 Flagyl 500 Mg Iv IV 05/26/24 05:59 200 mls/hr Q8HR SANDOVAL Administration Levothyroxine Sodium 75 mcg 05/19/24 06:00 05/19/24 06:20 Levothyroxine Sodium 25 Mcg Tablet PO 06/18/24 05:59 Not Given ACBR SANDOVAL Ondansetron HCl 4 mg 05/18/24 18:22 Ondansetron Inj 2 Mg/Ml Inj 2 Ml IV 06/17/24 18:21 Q6H PRN NAUSEA OR VOMITING Protocol Plan 83-year-old female with past medical history of hypertension, hypothyroidism, 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 Patient 87% on room air, requiring 2 L via nasal cannula to maintain good saturations. Patient treated last week at [facility] for influenza pneumonia with antibiotics and Tamiflu. Patient completed course, but developed new hypoxia. Chest x-ray showing bibasilar pneumonia and atelectasis, vascular congestion. - O2, titrate to maintain saturations greater than 92% - Cefepime 2 g IV every 8 hours (started 05/18) - Culture still pending. #Hypertension, currently controlled #Hypothyroidism Patient history as stated. - Resume patient's home meds: Levothyroxine 75 mg p.o. daily #TBI Patient history of TBI decades ago. Patient chronically bedbound, interactive. Patient eats pur?ed diet with assistance. Concern for aspiration. - Patient passed speech therapy eval, started dysphagia diet. DVT prophylaxis: GI prophylaxis: None Diet: Dysphagia 1 pur?ed diet Lines: Peripheral IV Code status: Limited code, no intubation or feeding tubes Patient care was discussed with attending physician Dr. Fabrizio Lai MD PGY-2 Attending Provider Attestation/Addendum I have discussed and was present for the essential components of the history, physical examination, diagnosis, and treatment plan with the resident. I agree with the patient's care as documented by the resident and amended herein by me. Eric Dinh DO. Patient seen and evaluated this AM. Vital signs stable, no acute events overnight, patient was on 5 L this a.m., SpO2 94%. Will continue on cefepime and reevaluate tomorrow however clinically, the patient is improved since yesterday. Family at bedside, all questions answered. Although this document has been carefully reviewed, there may still be some phonetic and other typographical errors. These errors are purely grammatical due to imperfections in the software program and should not be construed in any way to compromise the substance of the patient's medical care during this visit.
[2024-05-19] MEDS: SODIUM CHLORIDE 0.9% 250 ML 250 ML 999 ML IV (13:57)
--- NOTE | 2024-05-19 15:00 | PC.NURSE ---
BP 121/61 after fluid bolus
--- NOTE | 2024-05-19 16:04 | PC.SS ---
This is 83-year-old, , single female who presented to the ED for shortness of breath. Patient is confused. SW contacted patient's sister, Marry to complete assessment. Per Marry, patient is a long-term resident of [facility]. Patient is dependent to complete all ADLs. She is able to sit in a wheelchair at times. Patient's medical decision maker is her sister, Marry or niece, Lizabeth. When medically clear, patient will return to [facility]; she will need ambulance transportation. Discharge plan: [facility] with non-emergency medical transportation. Next of kin: Marry Walter, .
[2024-05-20] VITALS: BP 100/43; PULSE 81; RESP 14; TEMP 36.4; O2SAT 94
[2024-05-20 04:00] VITALS: BP 107/51; PULSE 77; RESP 14; TEMP 36.1; O2SAT 99
[2024-05-20] MEDS: LEVOTHYROXINE SODIUM 25 MCG TABLET 75 MCG PO (05:09)
[2024-05-20] MEDS: metroNIDAZOLE/NS 500 MG IVPB 500 MG/100 ML BAG 200 MG IV ×2 (05:10→15:15)
[2024-05-20] MEDS: CEFEPIME INJ 2 GM in SODIUM CHLORIDE 0.9% (Popper) 50 ML IV ×2 (05:10→14:31)
[2024-05-20 05:21] LABS: Basophils % (Auto) 0 % (0-2.5); Eosinophils # (Auto) 0.2 Thou/mm3 (0.0-0.5); Eosinophils % (Auto) 3 % (0-10); Hematocrit 37.9 % (36.0-46.0); Hemoglobin 12.1 g/dL (12.0-16.0); Immature Granulocytes % (Auto) 1 % (0-0); Immature Granulocytes Auto 0.07 Thou/mm3 (0.00-0.00); Lymphocytes % (Auto) 12 % (10-50); Mean Corpuscular HGB Conc 31.9 g/dl (31.0-37.0); Mean Corpuscular Hemoglobin 29.4 pg (25.0-35.0); Mean Corpuscular Volume 92 fL (80-100); Monocytes # (Auto) 0.3 Thou/mm3 (0.0-0.8); Monocytes % (Auto) 3 % (0-12); Neutrophils % (Auto) 81 % (37-80); Nucleated Red Blood Cell % 0 /100 WBC (0); Platelet Count 253 Thou/mm3 (140-440); RDW Standard Deviation 47.9 fL (36.4-46.3); Red Blood Count 4.11 Miln/mm3 (4.00-5.20); White Blood Count 8.6 Thou/mm3 (3.6-11.0)
[2024-05-20 06:07] LABS: Alanine Aminotransferase 17 U/L (10-49); Albumin, Serum 3.5 gm/dL (3.4-4.8); Albumin/Globulin Ratio 1.3 (1.2-2.2); Alkaline Phosphatase 47 U/L (46-116); Anion Gap 8 (7-16); Aspartate Amino Transferase 15 U/L (0-34); BUN/Creatinine Ratio 45 Ratio (12-20); Bilirubin,Total 0.5 mg/dL (0.3-1.2); Blood Urea Nitrogen 27 mg/dL (9-23); Calcium (Corrected) 9.4 mg/dL (8.5-10.1); Carbon Dioxide 32.8 mMol/L (20.0-31.0); Chloride 101 mMol/L (98-107); Creatinine (Component) 0.6 mg/dL (0.6-1.3); Estimated Creatinine Clearance 61.5 mL/min (>60); Globulin 2.7 gm/dL (2.3-3.5); Glucose 107 mg/dL (74-106); Magnesium 1.9 mg/dL (1.6-2.6); Osmolality,Calculated 288 (275-295); Phosphorous 2.8 mg/dL (2.4-5.1); Potassium 3.7 mMol/L (3.4-5.1); Sodium 142 mMol/L (136-145); Total Protein 6.2 gm/dL (5.7-8.2); eGFR > 60 See Note
[2024-05-20 08:00] VITALS: BP 99/66; PULSE 72; PULSE 74; RESP 21; TEMP 36.2; O2SAT 99
[2024-05-20] MEDS: ENOXAPARIN SOD INJ 40 MG/0.4 ML SYRINGE SC (09:00)
[2024-05-20 09:18] LABS: Procalcitonin 0.12 ng/ml (0.0-0.49)
[2024-05-20 09:32] VITALS: PULSE 74; RESP 14; O2SAT 95
[2024-05-20 12:00] VITALS: BP 98/62; PULSE 73; PULSE 76; RESP 17; TEMP 36.6; O2SAT 96
--- NOTE | 2024-05-20 14:45 | PC.SS ---
Addendum entered by Sanjuanita Lo 05/20/24 15:01: ETA set for 1700 with [facility] Earl SEYMOUR and RN Dejah made aware Original Note: SS spoke to pt sister Marry [phone] in regards to pt DC today back to [facility]. Per Marry that is the plan. SS set up transport with [employer], pending release to transport.
--- NOTE | 2024-05-20 15:14 | ESDS_ITS ---
Planned Discharge Date 05/20/24 DS: Providers Provider Date of admission: 05/18/24 18:23 Primary care physician: John Maharaj MD Admitting Provider: Edgar Dinh DO Attending Provider on Admission: Edgar Dinh DO Consults: 05/18/24 13:07 Referral Respiratory Therapy Stat Comment: suction 05/18/24 18:25 Referral Speech Therapy Urgent Comment: 05/18/24 23:37 Referral Registered Dietitian Routine Comment: [facility] Referral - Transportation Routine Comment: Positive screening for transportation needs. 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 Patient was admitted for pneumonia with failure of previous treatment, started on cefepime. Patient O2 rapidly improved, able to be weaned down to baseline levels. Patient remained afebrile during course of stay. Patient medically stable and cleared for discharge. Discharge plan: Patient was started on following medications: - Augmentin and azithromycin for 5 days Continue taking all other medications as previously prescribed. Please follow-up with your primary doctor within 1-2 weeks. Please return to the ED if you develop new or worsening symptoms. Diagnoses: #Acute hypoxic respiratory failure secondary to #Pneumonia, failed previous treatment #Hypertension #Hypothyroidism #TBI Plan of care discussed with attending Dr. Dinh. Dennis Bolaños MD PGY?1 Status at Discharge Overall status at discharge: patient is back to baseline Time Spent with Patient Time attestation: Total time spent providing and/or coordinating discharge services: Time spent: Greater than 30 minutes Exam Vital Signs Temp Pulse Resp BP Pulse Ox O2 Del Method O2 Flow Rate 97.8 F 73 17 98/62 96 Nasal Cannula 1 05/20/24 12:00 05/20/24 12:00 05/20/24 12:00 05/20/24 12:00 05/20/24 12:00 05/20/24 12:00 05/20/24 12:00 Narrative Exam Gen: Well-developed and well-nourished. Slouched over, unable to maintain good posture. HEENT: NCAT, PERRLA, EOMI, MMM, anicteric conjunctivae. CVS: normal S1 and S2. RRR. No M/R/G. Resp: CTA B/L. No rhonchi, rales, crackles or wheezing. Abd: soft, non-tender, non-distended. MSK: Good ROM in BUE & BLE. No edema or rash. Neuro: CN II-XII grossly intact. Strength 5/5 in BUE & BLE. Alert and oriented x 2, baseline for patient. Mumbles words, appropriate responses, follows commands. Psych: appropriate mood and affect. Discharge Plan Plan Patient Disposition: Xfer Skilled Nsg Fac (SNF) Disposition Comment: [facility] Patient condition on transfer: Stable Care Plan Goals: Patient was started on following medications: - Augmentin and azithromycin for 5 days Continue taking all other medications as previously prescribed. Please follow-up with your primary doctor within 1-2 weeks. Please return to the ED if you develop new or worsening symptoms. Prescriptions/Referrals Prescriptions/Med Rec: New amoxicillin-pot clavulanate 875-125 mg tablet 1 tab PO BID 5 Days Qty: 10 0RF azithromycin 250 mg tablet 250 mg PO QDAY 5 Days Qty: 5 0RF Continued magnesium hydroxide [Milk of Magnesia] 400 mg/5 mL Suspension 30 ml PO Q48H PRN (Reason: Constipation) Rx Instructions: GIve 30 mls by mouth every 2nd day if no bowel movement as needed bisacodyl [Dulcolax (bisacodyl)] 10 mg Suppository 10 mg [place] Q72H PRN (Reason: Constipation) Rx Instructions: Insert 1 suppository rectally every third day if no bowel movement as needed if Milk of Magnesia ineffective Fleet Enema 19-7 gram/118 mL Enema See Rx Instructions .ROUTE .COMPLEX PRN (Reason: Constipation) Rx Instructions: Insert 1 applicator rectally every third day if no bowel movement as needed, if dulcolax suppository ineffective calcium carbonate-vitamin D3 [Oyster Shell Calcium-Vit D3] 500 mg(1,250mg) - 200 unit Tablet 1 tab PO BID docusate sodium 250 mg Capsule 100 mg PO BID balsam ben-castor oil [Venelex] Ointment 1 applicatio top BID Qty: 60 0RF midodrine 2.5 mg Tablet 2.5 mg PO TID Qty: 90 0RF levothyroxine 75 mcg tablet 75 mcg PO 1XD nystatin-triamcinolone 100,000-0.1 unit/g-% cream 1 applic TOPICAL 1XD atorvastatin 10 mg Tablet 10 mg PO HS Qty: 90 0RF albuterol sulfate 90 mcg/actuation HFA aerosol inhaler 1 inh inhalation QID PRN (Reason: shortness of breath or wheezing) Qty: 8.5 0RF docusate sodium 100 mg capsule 200 mg PO BID Referrals: John Maharaj MD [Primary Care Provider] - Patient/Caregiver Discharge Instructions Discharge Activity: resume usual activities Education Materials: What Is Pneumonia?, Preventing Pneumonia, Preventing Common Respiratory ..., When to Use Antibiotics Print Language: Ukrainian Stand Alone Forms: [facility] Award Info., Patient Portal Info Letter Discharge Order Discharge Orders: Discharge (Routine); Ordered 05/20/24 Ordered By: Dennis Bolaños Quality Discharge Quality Measures VTE prophylaxis Attestestation Attestation I have discussed and was present for the essential components of the discharge history, physical examination, diagnosis, and discharge treatment plan with the resident. I agree with the patient's discharge care as documented by the resident and amended herein by me. Eric Dinh DO. The patient understood all discharge instructions, all questions were answered satisfactorily. The patient was instructed to return to the Emergency Department is symptoms worsened or persisted. Patient significantly improved today, SpO2 95% on 1 to 2 L O2. Will discharge the patient on Augmentin and azithromycin for an additional 5 days to clear up any remaining pneumonia however procalcitonin drawn today was negative. Patient's labs were unremarkabl e today, the patient stated she felt well and able to return back to SNF. Patient's family notified, the patient was stable, afebrile and tolerating p.o. intake at time of discharge back to SNF. Although this document has been carefully reviewed, there may still be some phonetic and other typographical errors. These errors are purely grammatical due to imperfections in the software program and should not be construed in any way to compromise the substance of the patient's medical care during this visit.
[2024-05-20 16:00] VITALS: BP 104/54; PULSE 77; PULSE 79; RESP 16; TEMP 36.3; O2SAT 94
== END 2024-05-20 16:59 | disposition skilled nursing facility (03) | DRG 195 ==
LOC: SERX 17:03 → S3SX 05-20 09:50 → SERHOLD 05-21 05:50
PROVIDERS: Admitting Provider Student in an Organized Health Care Education/Training Program; Emergency Provider Emergency Medicine; PCP Family Medicine; Visit Provider Student in an Organized Health Care Education/Training Program
DX: J18.9 Pneumonia, unspecified organism (principal); I10 Essential (primary) hypertension; E03.9 Hypothyroidism, unspecified; Z87.820 Personal history of traumatic brain injury; Z74.01 Bed confinement status
CPT/HCPCS: 36415; 71045; 80053; 83735; 84100; 84145; 85025; 87081; 87811; 92526; 92610; 93225; J0692; J1650; J1940; J3490; J7050; A9270; J1836

== ENCOUNTER 2024-05-30 08:22 | Inpatient (IN) | payer MEDICARE, MEDICAID, SELFPAY ==
[2024-05-30] VITALS (16 sets, daily range): BP systolic 91–112; BP diastolic 52–66; PULSE 55–90; RESP 12–86; TEMP 36–39.1; O2SAT 90–100; BMI 27.4
--- NOTE | 2024-05-30 09:12 | XR_ITS ---
Examination: AP chest single view Technique one AP portable upright chest single view Exam date and time: May 30, 2024 0955 hours Comparison May 18, 2024 INDICATIONS: Hypoxia coughing today. FINDINGS: No significant cardiac or Bilateral lung opacity consistent with pneumonia Mild to moderate vascular congestion Heavy calcification aortic arch IMPRESSION: Significant bilateral pneumonia
[2024-05-30 09:42] LABS: Lactate (Lactic Acid) 0.7 mMol/L (0.4-2.0)
[2024-05-30 09:44] LABS: Basophils % (Auto) 0 % (0-2.5); Eosinophils % (Auto) 0 % (0-10); Hematocrit 41.2 % (36.0-46.0); Immature Granulocytes % (Auto) 0 % (0-0); Immature Granulocytes Auto 0.03 Thou/mm3 (0.00-0.00); Lymphocytes # (Auto) 0.9 Thou/mm3 (1.0-4.8); Lymphocytes % (Auto) 11 % (10-50); Mean Corpuscular HGB Conc 31.6 g/dl (31.0-37.0); Mean Corpuscular Hemoglobin 29.6 pg (25.0-35.0); Mean Corpuscular Volume 94 fL (80-100); Monocytes # (Auto) 0.7 Thou/mm3 (0.0-0.8); Monocytes % (Auto) 8 % (0-12); Neutrophils % (Auto) 81 % (37-80); Nucleated Red Blood Cell % 0 /100 WBC (0); Platelet Count 246 Thou/mm3 (140-440); RDW Standard Deviation 50.2 fL (36.4-46.3); Red Blood Count 4.39 Miln/mm3 (4.00-5.20); White Blood Count 8.7 Thou/mm3 (3.6-11.0)
[2024-05-30] MEDS: SODIUM CHLORIDE 0.9% 1000 ML 1,000 ML 999 ML IV (09:48)
[2024-05-30] MEDS: PIPER/TAZO 3.375 GM PREMIX 3.375 GM/50 ML BAG IV (09:50)
[2024-05-30 10:11] LABS: Collection Type, Urine Catheter
[2024-05-30 10:22] LABS: Alanine Aminotransferase 11 U/L (10-49); Albumin, Serum 3.9 gm/dL (3.4-4.8); Albumin/Globulin Ratio 1.3 (1.2-2.2); Alkaline Phosphatase 50 U/L (46-116); Anion Gap 10 (7-16); Aspartate Amino Transferase 23 U/L (0-34); BUN/Creatinine Ratio 25 Ratio (12-20); Bilirubin,Total 0.3 mg/dL (0.3-1.2); Blood Urea Nitrogen 15 mg/dL (9-23); Calcium 8.9 mg/dL (8.3-10.6); Chloride 104 mMol/L (98-107); Creatinine (Component) 0.6 mg/dL (0.6-1.3); Estimated Creatinine Clearance 56.7 mL/min (>60); Globulin 3.1 gm/dL (2.3-3.5); Glucose 101 mg/dL (74-106); Osmolality,Calculated 278 (275-295); Potassium 3.7 mMol/L (3.4-5.1); Procalcitonin 0.26 ng/ml (0.0-0.49); Sodium 139 mMol/L (136-145); eGFR > 60 See Note
--- NOTE | 2024-05-30 10:48 | PD.EDSOB ---
ED SOB =RME/HPI General Chief Complaint: Shortness of Breath/Dyspnea Stated Complaint: LOW O2 Time Seen by Provider: 05/30/24 09:03 Arrival date/time: 05/30/24 08:22 RME / HPI RME / HPI Narrative: Dr. Pérez?s Main ED Evaluation: 83 y/o female with H/o Atherosclerotic Heart Disease, Peripheral Vascular Disease, Hypercholesterolemia, Hypertension, Hypotension, Asthma, Bronchitis, Pneumonia, Gastroesophageal Reflux Disease, Arthritis and Degenerative Joint Disease, Hypothyroidism, Depression and Anxiety BIBA from [facility] presents to ED c/o shortness of breath x 2 days. No modifying factors reported. No other concerns or complaints expressed at this time. Related Data Home Medications ?Medication ?Instructions ?Recorded ?Confirmed bisacodyl 10 mg rectal suppository 10 mg WV Q72H PRN Constipation 08/15/19 05/19/24 (Dulcolax (bisacodyl)) calcium 500 mg (as 1 tab PO BID 08/15/19 05/19/24 carbonate)-vitamin D3 5 mcg (200 unit) tablet (Oyster Shell Calcium-Vitamin D3) docusate sodium 250 mg capsule 100 mg PO BID 08/15/19 05/19/24 magnesium hydroxide 400 mg/5 mL 30 ml PO Q48H PRN Constipation 08/15/19 05/19/24 oral suspension (Milk of Magnesia) sodium phosphates 19 gram-7 See Rx Instructions .Route 08/15/19 05/10/24 gram/118 mL enema (Fleet Enema) .COMPLEX PRN Constipation levothyroxine 75 mcg tablet 75 mcg PO 1XD 05/10/24 05/19/24 nystatin-triamcinolone 100,000 1 applic topical 1XD 05/10/24 05/10/24 unit/g-0.1 % topical cream docusate sodium 100 mg capsule 200 mg PO BID 05/19/24 05/19/24 Previous Rx's ?Medication ?Instructions ?Recorded balsam ben-castor oil topical 1 applicatio top BID #60 grams 08/27/19 ointment (Venelex topical ointment) midodrine 2.5 mg tablet 2.5 mg PO TID #90 tabs 08/27/19 albuterol sulfate 90 mcg/actuation 1 inh inhalation QID PRN shortness 05/14/24 aerosol inhaler of breath or wheezing #8.5 grams atorvastatin 10 mg tablet 10 mg PO HS #90 tabs 05/14/24 Allergies Allergy/AdvReac Type Severity Reaction Status Date / Time No Known Allergies Allergy Verified 05/18/24 12:29 Review of Systems Review of Systems Systems Reviewed: All systems reviewed, normal except as documented Narrative Review of Systems: Gen: No fever, no chills, no weight loss EYES: No discharge, no visual changes, no pain HEENT: No ear pain, no congestion, no sore throat PULM: Positive shortness of breath, no cough, no congestion CV: No chest pain, no dyspnea on exertion, no palpitations GI: No nausea, no vomiting, no diarrhea, no pain, no constipation : No frequency, no urgency, no dysuria Musc/skel: No joint pain, no back pain Skin: No rash Psyc: No hallucinations, no depression Heme/Lymph: No easy bleeding or bruising tendencies Neuro: No weakness, no headache Past Medical History Past Medical History NEUROLOGIC: Positive Head Trauma and Traumatic Brain Injury CARDIAC: Positive Cardiac Disorders, Atherosclerotic Heart Disease, Peripheral Vascular Disease, Hypercholesterolemia, Hypertension and Hypotension RESPIRATORY: Positive Asthma, Bronchitis and Pneumonia GASTROINTESTINAL: Positive Gastroesophageal Reflux Disease MUSCULOSKELETAL: Positive Musculoskeletal Disorders, Arthritis and Degenerative Joint Disease ENT: Positive Cataracts and Head Trauma ENDOCRINE: Positive Endocrine Disorders and Hypothyroidism PSYCHO/SOCIAL: Positive Depression and Anxiety Social History SMOKING STATUS: Never smoker ED Exam Narrative Physical exam: GENERAL APPEARANCE: AxOx4, generally well-appearing, no acute distress. HEENT: NC, AT. MMM. EOMI, clear conjunctiva, oropharynx clear. NECK: Supple without lymphadenopathy. No stiffness or restricted ROM. HEART: Normal rate and regular rhythm, normal S1/S1, no m/r/g LUNGS: CTAB, moving air well. No crackles or wheezes are heard. ABDOMEN: Soft, nontender, nondistended with good bowel sounds heard. BACK: No midline C/T/L spine pain or deformity, No CVAT, no obvious deformity. EXTREMITIES: Without cyanosis, clubbing or edema. MUSCULOSKELETAL: FROM of all major joints, no chest tenderness NEUROLOGICAL: Grossly nonfocal. CN not formally tested but appear grossly intact. Skin: Warm and dry without any rash. Course Quality Measures Current suspected stage: sepsis Possible source: pulmonary Blood cultures ordered: completed in ED Antibiotic ordered: Yes Pertinent labs: 05/30/24 09:35 Lactic Acid 0.7 mMol/L (0.4-2.0) Procalcitonin 0.26 ng/ml (0.0-0.49) sepsis Orders Category Date Time Status Bedside COVID-19 Antigen Test NOW Care 05/30/24 10:30 Active Bedside Influenza A&B Antigen Test NOW Care 05/30/24 10:30 Completed COVID-19 Screening Questionnaire NOW Care 05/30/24 10:48 Active Decision to Admit X1 Care 05/30/24 10:48 Completed EKG (ED ONLY) *Do not use* NOW Care 05/30/24 09:12 Completed EKG (ED Only) Stat Exams 05/30/24 09:12 Ordered XR chest 1V Stat Exams 05/30/24 09:12 Completed Blood Culture (Lab) Stat Lab 05/30/24 09:35 Received CBC Stat Lab 05/30/24 09:35 Completed CMP [Comprehensive Metabolic Panel] Stat Lab 05/30/24 09:35 Completed Lactate (Lactic Acid) Stat Lab 05/30/24 09:35 Completed Procalcitonin Stat Lab 05/30/24 09:35 Completed Urinalysis Stat Lab 05/30/24 11:02 Completed Acetaminophen Supp [Tylenol Supp] Med 05/30/24 10:32 Discontinued 650 mg WV X1 ONE Piper/Tazo 3.375 gm Premix [Zosyn] Med 05/30/24 09:22 Discontinued 3.375 gm in 50 ml IV X1 Sodium Chloride 0.9% 1000 ml [Ns] 1,000 ml Med 05/30/24 09:11 Discontinued IV 999 mls/hr Vital Signs Vital signs: Vital Signs Temperature 102.4 F H 05/30/24 09:03 Pulse Rate 82 05/30/24 09:03 Respiratory Rate 15 05/30/24 09:03 Blood Pressure 106/63 05/30/24 09:03 Pulse Oximetry (%) 91 L 05/30/24 09:03 Oxygen Delivery Method Oxy Mask 05/30/24 09:03 Oxygen Flow Rate 10 05/30/24 09:03 Procedures -ED EKG Interpretation #1: Date of EK05/30/24 Time of EK:04 Rate: 74 Interpretation: Interpreted by me Additional EKG comment: Right QRS and right bundle branch block newly developed since 05/09/24, but no STEMI. Shortness of Breath / Dyspnea MDM Narrative MDM Narrative:: Scribe Attestation: I, Annmarie Castro, am scribing for and in the presence of Dr. Pérez. Provider Notation: Although this document has been carefully reviewed, there may still be some phonetic and other typographical errors. These errors are purely grammatical due to imperfections in the software program and should not be construed in any way to compromise the substance of the patient's medical care during this visit. Patient data External records reviewed:: [facility] previous records (Reviewed prior admittance record. Patient was admitted on 05/18/24-05/20/24 for Hypoxia.) Clinical information provided by:: patient and EMS Social determinants that could affect healthcare access:: none Patient has the following chronic illnesses:: Atherosclerotic Heart Disease, Peripheral Vascular Disease, Hypercholesterolemia, Hypertension, Hypotension, Asthma, Bronchitis, Pneumonia, Gastroesophageal Reflux Disease, Arthritis and Degenerative Joint Disease, Hypothyroidism, Depression and Anxiety How is presenting disease/condition affected by chronic disease/condition?: exacerbated by Evaluation data The following diagnostics were reviewed and interpreted by me:: lab results, radiology exam(s) and EKG tracing(s) Lab and/or radiology exams considered but not ordered:: None Interpretation Summary: RADIOLOGY Patient: ALIYA LYLE. Record#: [id number] Birthdate: 1940 Age/Sex: 83 / F Location: [facility] Attending Dr: Ordering Physician: Laureano Pérez MD Date of Service: 05/30/24 Procedure(s): XR chest 1V Accession Number(s): [id number] cc: Laureano Pérez MD; Manuel Orta MD; NO PRIMARY/FAMILY,PHYSICIAN~ Examination: AP chest single view Technique one AP portable upright chest single view Exam date and time: May 30, 2024 0955 hours Comparison May 18, 2024 INDICATIONS: Hypoxia coughing today. FINDINGS: No significant cardiac or Bilateral lung opacity consistent with pneumonia Mild to moderate vascular congestion Heavy calcification aortic arch IMPRESSION: Significant bilateral pneumonia Dictated By: Manuel Orta MD Signed By: Electronically signed by Manuel Orta MD in OV 05/30/24 1023 Patient: ALIYA LYLE. Record#: [id number] Birthdate: 1940 Age/Sex: 83 / F Location: [address]: Rodrigue Hernandez MD Ordering Physician: Erica Lai MD Date of Service: 05/30/24 Procedure(s): CT head/brain wo con Accession Number(s): [id number] cc: Manuel Orta MD; Erica Lai MD; NO PRIMARY/FAMILY,PHYSICIAN~ Examination: CT brain head without contrast. 2-D sagittal coronal reconstructions Date and time of exam:May 30, 2024 1237 hours INDICATIONS: Altered mental status, patient nonverbal CTDI: vol (mGy):54.2 DLP: (mGycm):1144 Technique: Multiple CT axial sections of the brain have been obtained, 5 mm slice thickness. Contrast has not been administered. 2-D sagittal, coronal reconstructions have been obtained Low dose protocols were performed. One or more of the following dose reduction techniques were used; automated exposure control, adjustment of the mA and/or KV according to patient size, use of iterative reconstruction technique. Findings: Again noted moderate ventricular enlargement Again noted encephalomalacia right frontal lobe Significant atrophy Again noted prominent dilatation left trigone No interval hemorrhage Atrophic cerebellar hemispheres IMPRESSION: No interval hemorrhage mass effect or midline shift Brain MRI MRA without contrast, stroke protocol, would best assess for cellulitis, acute ischemic change Dictated By: Manuel Orta MD Signed By: Electronically signed by Manuel Orta MD in OV 05/30/24 6237 Medications / Prescriptions Medications or Prescriptions considered but not ordered:: None Medication administrations:: Medication Administration History Albuterol/Ipratropium (Albuterol/Ipratropium (Duoneb) Rt Poly 3 Ml Nebu) 3 ml INH Q6HRRT SANDOVAL Stop: 06/29/24 14:39 Last Admin: 05/30/24 16:52 Dose: 3 ml Documented By: JV Enoxaparin Sodium (Enoxaparin Sod Inj 40 Mg/0.4 Ml Syringe) 40 mg SC QDAY SANDOVAL Stop: 06/14/24 08:59 Cefepime HCl 2 gm/ Sodium (Chloride) 50 mls @ 100 mls/hr IV BID SANDOVAL Stop: 06/06/24 14:49 Levothyroxine Sodium (Levothyroxine Inj 100 Mcg Vial) 40 mcg IV DAILY SANDOVAL Stop: 06/29/24 14:14 Oseltamivir Phosphate (Oseltamivir 30 Mg Capsule) 30 mg PO BID SANDOVAL Stop: 06/07/24 08:59 Discontinued Medications Acetaminophen (Acetaminophen Supp 650 Mg Supp) 650 mg WV X1 ONE Stop: 05/30/24 10:33 Last Admin: 05/30/24 11:00 Dose: 650 mg Documented By: GM Albuterol/Ipratropium (Albuterol/Ipratropium (Duoneb) Rt Poly 3 Ml Nebu) 3 ml INH Q6HRRT SANDOVAL Stop: 06/29/24 18:59 Sodium Chloride (Ns) 1,000 mls @ 999 mls/hr IV .Q1H1M ONE Stop: 05/30/24 10:11 Last Infusion: 05/30/24 11:06 Dose: Infused Documented By: Admin: 05/30/24 09:48 Dose: 999 mls/hr Documented By: GM Piperacillin/Tazobactam/Dextrose (Zosyn) 3.375 gm in 50 mls @ 100 mls/hr IV X1 ONE Stop: 05/30/24 09:51 Last Infusion: 05/30/24 10:25 Dose: Infused Documented By: Admin: 05/30/24 09:50 Dose: 100 mls/hr Documented By: GM Lactated Ringer's (Lactated Ringers) 500 mls @ 999 mls/hr IV .Q31M ONE Stop: 05/30/24 15:00 Last Admin: 05/30/24 14:28 Dose: 999 mls/hr Documented By: KEVEN Oseltamivir Phosphate (Oseltamivir 6 Mg/Ml) 75 mg PO X1 ONE Stop: 05/30/24 14:01 Last Admin: 05/30/24 14:29 Dose: Not Given Documented By: GM Non-Admin Reason: Contraindicated Comments: PT UNABLE TO STAY ALERT AND AWAKE AT THIS TIME. DR. PEDERSON MADE AWARE. See above if any Consultations Consultation(s) initiated? (list below): Yes Consultation #1 (Physician, Specialty, Details): I spoke with hospitalist team C regarding admission. Discussed patients PMHx, HPI, ED course, exam findings, labs, and radiology results. The hospitalist agree to accept the patient for admission. Diagnosis Shortness of Breath Differential Diagnosis: congestive heart failure, asthma with exacerbation and other (Pneumonia vs Bronchitis) Most likely diagnosis given after review of the tests above:: Hypoxia Respiratory distress Viral pneumonia Admission Indicated Admission indicated?: indicated Admission Request Was there a request for admission?: Yes Admission Attestation Admission request attestation: Discussed case with [] from Hospitalist service regarding admission. Discussed patients ED course, exam findings, labs, and radiology results. The Hospitalist [agrees,declines] to accept the patient for admission. Disposition Plan Disposition Plan: Admit Critical Care Time Critical Care Time Critical Care Time: Yes Total Critical Care Time (min.): 35 Attestation: The high probability of sudden, clinically significant deterioration in the patient's condition required the highest level of my preparedness to intervene urgently. The services I provided to this patient were to treat and/or prevent clinically significant deterioration. Services included the following: chart data review, reviewing nursing notes and/or old charts, documentation time, senior analytic consultant collaboration regarding findings and treatment options, medication orders and management, direct patient care, vital sign assessments and ordering, interpreting and reviewing diagnostic studies and lab tests. Aggregate critical care time includes only time during which I was engaged in work directly related to the patient's care, as described above, whether at bedside or elsewhere in the Emergency Department. It did not include time spent performing other reported procedures or the services of residents, students, nurses or physician assistants. Discharge Plan Plan Patient Disposition: Admit Acute Care w/in Hospital Problem List Clinical Impression: Hypoxia, Respiratory distress, Viral pneumonia
[2024-05-30] MEDS: ACETAMINOPHEN SUPP 650 MG SUPP PR (11:00)
[2024-05-30 11:52] LABS: Amorphous Crystals,Urine Present (Absent); Bacteria,Urine Rare; Bilirubin,Urine Negative (Negative); Blood,Urine Negative (Negative); Color,Urine Yellow (Lt Yel-Yel); Glucose, Urine Negative (Negative); Ketones,Urine Negative (Negative); Leukocyte Esterase,Urine Negative (Negative); Nitrite,Urine Negative (Negative); PH,Urine 5.5 (5.0-7.0); Protein,Urine 1+ (Neg - Trace); RBC,Urine 1 /hpf (0-3); Specific Gravity,Urine 1.028 (1.001-1.035); Squamous Epithelial Cell,Urine 1 /hpf (0-5); Urobilinogen,Urine Negative mg/dL (0.0-1.0); WBC,Urine 5 /hpf (0-5)
--- NOTE | 2024-05-30 11:54 | XR_ITS ---
Examination: CT brain head without contrast. 2-D sagittal coronal reconstructions Date and time of exam:May 30, 2024 1237 hours INDICATIONS: Altered mental status, patient nonverbal CTDI: vol (mGy):54.2 DLP: (mGycm):1144 Technique: Multiple CT axial sections of the brain have been obtained, 5 mm slice thickness. Contrast has not been administered. 2-D sagittal, coronal reconstructions have been obtained Low dose protocols were performed. One or more of the following dose reduction techniques were used; automated exposure control, adjustment of the mA and/or KV according to patient size, use of iterative reconstruction technique. Findings: Again noted moderate ventricular enlargement Again noted encephalomalacia right frontal lobe Significant atrophy Again noted prominent dilatation left trigone No interval hemorrhage Atrophic cerebellar hemispheres IMPRESSION: No interval hemorrhage mass effect or midline shift Brain MRI MRA without contrast, stroke protocol, would best assess for cellulitis, acute ischemic change
[2024-05-30 11:56] LABS: Clarity,Urine Hazy (Clear/Hazy)
--- NOTE | 2024-05-30 12:00 | PC.NURSE ---
@1200- CALLED DR. GOETZ AND MADE AWARE PT DESSATED TO 86% IN ROOM AIR AND THAT PT PLACED ON OXY MASK AT 8L AND PT SATTING AT 93%; PT'S BP AT THIS TIME ALSO 99/48. PER DR. GOETZ, WILL COME TO BEDSIDE. @1208- DR. GOETZ AT BEDSIDE ASSESSING PT; PER DR. GOETZ, CALL RT AND HAVE THEM COME TO BEDSIDE. WILL PUT NEW ORDERS IN. @1210- RT CALLED AND MADE AWARE OF PT'S SITUATION; PER RT, WILL COME SEE PT SOON.
[2024-05-30 12:34] LABS: Base Excess 3 (-3-3); HCO3 31 mEq/L (20-26); Inspired O2, VO2 Liters 8 L/min; O2 Saturation 98 % (91-98); PCO2 65 mmHg (32.0-48.0); PO2 95 mmHg (83-108); pH, Arterial 7.29 (7.35-7.45)
[2024-05-30 12:37] LABS: Allen Test Not Performed; Puncture Site Left Radial
--- NOTE | 2024-05-30 13:22 | PC.NURSE ---
Addendum entered by Jorge Castillo RN 05/30/24 13:33: DR. HERNANDEZ CALLED AND MADE AWARE PT' BP 91/54 WITH A MAP OF 64 AT THIS TIME; PER DR. HERNANDEZ, WILL PUT ORDER IN. Original Note: SPOKE TO DR. HERNANDEZ OVER THE PHONE AND MADE AWARE PT'S BP IS 92/52 WITH A MAP OF 70. PER DR. HERNANDEZ, NO NEW ORDERS AT THIS TIME; CALL ME IF PT'S MAP STARTS TO DIP BELOW 65.
--- NOTE | 2024-05-30 14:20 | ESHP_ITS ---
<Statement entered by Rodrigue Hernandez MD - 06/05/24 13:48> I reviewed above note and agree with findings and plans. I have also personally examined the patient with medicine team and went over assessment and plan with medical team including architectural intern and resident physician. 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 PT was recently DC from the [facility] , was treated for AHRF 2/2 PNA and influenza. presented from SNF with worsening mental status. On presentation she was febrile, WBC/LA/Proca wnl. Head CT did not show acute pathology. Chest x-ray showed significant bilateral pneumonia, mild to moderate vascular congestion.Patient found to be Influenza positive. In ED She recieved Zosyn, 1 L lactated Ringer's bolus in the ED. Patient placed on 10 L O2 via OxyMask. Was admitted for further management. ABG showed respiratory acidosis, Pt RR was around 8-10. #acute encephalopathy in a setting of hypercapnia #generalized weakness 2/2 influenza #PNA viral(influenza) vs HAP vs CAP -Bipap -ABG -Abx -tamiflu -monitor I discussed with and supervised the architectural intern physician who took care of this patient. I personally saw and examined the patient and discussed the assessment and plan with the entire medicine team, including my attending , I agree with the assessment and plan as documented below Erica Lai M.D. PGY-2 Disclaimer: Despite multiple revisions, due to the dictation software being used, the document bellow may not be free of grammatical errors including phonetic/typographic errors. However, this does not deter from our commitment to providing health care in the patient's best interest in mind. 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 Patient was admitted twice in the past month she is here for [facility] for acute approximately failure due to pneumonia, patient received treatment for influenza and antibiotics during those stays, was discharged after being titrated back to baseline O2. Patient was most recently discharged on 05/20/24. Patient presents this time for altered mental status with increased lethargy and hypoxia x 1 day. Per patient sister at bedside, patient was in usual state of health yesterday, alert and interactive, on room air. No known recent history of fever, chills, cough, nausea, vomiting, no known recent aspiration episode. ED COURSE: Labs significant for: WBC 8.7, hemoglobin 13.0, Pro-Rafita negative, influenza positive, UA unremarkable. ABG showed pH 7.29, PCO2 65, PO2 95. Imaging significant for: Head CT did not show acute pathology. Chest x-ray showed significant bilateral pneumonia, mild to moderate vascular congestion. Patient received Zosyn, 1 L lactated Ringer's bolus in the ED. Patient placed on 10 L O2 via OxyMask to maintain saturation greater than 90%. Review of Systems Review of Systems ROS Unobtainable: unobtainable due to medical condition Exam Vital Signs Temp Pulse Resp BP Pulse Ox O2 Del Method O2 Flow Rate 99.4 F 64 13 91/54 L 92 L Oxy Mask 8 05/30/24 13:08 05/30/24 13:30 05/30/24 13:30 05/30/24 13:30 05/30/24 13:30 05/30/24 13:30 05/30/24 13:30 Narrative Exam Gen: Well-developed and well-nourished. Slouched over, unable to maintain good posture. HEENT: NCAT, PERRLA, EOMI, MMM, anicteric conjunctivae. CVS: normal S1 and S2. RRR. No M/R/G. Resp: Poor air movement and rhonchi throughout all lung coleman. Abd: soft, non-tender, non-distended. MSK: Good ROM in BUE & BLE. No edema or rash. Neuro: CN II-XII grossly intact. Strength 5/5 in BUE & BLE. A&O x 0, responsive to painful stimuli. Results: Labs 05/30/24 09:35 05/30/24 09:35 Labs: Short CBC 05/30/24 Range/Units 09:35 WBC 8.7 (3.6-11.0) Thou/mm3 Hgb 13.0 (12.0-16.0) g/dL Hct 41.2 (36.0-46.0) % Plt Count 246 (140-440) Thou/mm3 BMP 05/30/24 09:35 Sodium 139 Potassium 3.7 Chloride 104 Carbon Dioxide 25.0 BUN 15 Creatinine 0.6 Glucose 101 Calcium 8.9 Liver Function 05/30/24 Range/Units 09:35 Total Bilirubin 0.3 (0.3-1.2) mg/dL AST 23 (0-34) U/L ALT 11 (10-49) U/L Alkaline Phosphatase 50 (46-116) U/L Albumin 3.9 (3.4-4.8) gm/dL Urine 05/30/24 Range/Units 11:02 Urine Color Yellow (Lt Yel-Yel) Urine Clarity Hazy (Clear/Hazy) Urine pH 5.5 (5.0-7.0) Ur Specific [place] 1.028 (1.001-1.035) Urine Protein 1+ A (Neg - Trace) Urine Glucose (UA) Negative (Negative) ABG Interpretation ABG results: 05/30/24 12:24 ABG pH 7.29 L ABG pCO2 65 H ABG pO2 95 ABG HCO3 31 H ABG O2 Saturation 98 ABG Base Excess 3 Quality Measures Quality Measures sepsis Current suspected stage: sepsis Possible source: pulmonary Blood cultures ordered: completed in ED Antibiotic ordered: Yes Advance care planning discussed with:: sibling Medications Home Medications and Allergies Home Medications ?Medication ?Instructions ?Recorded ?Confirmed ?Type bisacodyl 10 mg rectal suppository 10 mg ID Q72H PRN C onstipation 08/15/19 05/19/24 History (Dulcolax (bisacodyl)) calcium 500 mg (as 1 tab PO BID 08/15/19 History carbonate)-vitamin D3 5 mcg (200 unit) tablet (Oyster Shell Calcium-Vitamin D3) docusate sodium 250 mg capsule 100 mg PO BID 08/15/19 05/19/24 History magnesium hydroxide 400 mg/5 mL 30 ml PO Q48H PRN Cons tipation 08/15/19 05/19/24 History oral suspension (Milk of Magnesia) sodium phosphates 19 gram-7 See Rx Instructions .Route 08/15/19 05/10/24 History gram/118 mL enema (Fleet Enema) .COMPLEX PRN Constipat ion levothyroxine 75 mcg tablet 75 mcg PO 1XD 05/10/2407/08 History nystatin-triamcinolone 100,000 1 applic topical 1XD 05/10/24 History unit/g-0.1 % topical cream docusate sodium 100 mg capsule 200 mg PO BID 05/19/24 05/19/24 History Allergies Allergy/AdvReac Type Severity Reaction Status Date / Time No Known Allergies Allergy Verified 05/18/24 12:29 Visit Medications Enoxaparin Sodium (Enoxaparin Sod Inj 40 Mg/0.4 Ml Syringe) 40 mg SC QDAY SANDOVAL Stop: 06/14/24 08:59 Levothyroxine Sodium (Levothyroxine Inj 100 Mcg Vial) 40 mcg IV DAILY SANDOVAL Stop: 06/29/24 14:14 Oseltamivir Phosphate (Oseltamivir 30 Mg Capsule) 30 mg PO BID SANDOVAL Stop: 06/07/24 08:59 Discontinued Medications Acetaminophen (Acetaminophen Supp 650 Mg Supp) 650 mg ID X1 ONE Stop: 05/30/24 10:33 Last Admin: 05/30/24 11:00 Dose: 650 mg Sodium Chloride (Ns) 1,000 mls @ 999 mls/hr IV .Q1H1M ONE Stop: 05/30/24 10:11 Last Infusion: 05/30/24 11:06 Dose: Infused Piperacillin/Tazobactam/Dextrose (Zosyn) 3.375 gm in 50 mls @ 100 mls/hr IV X1 ONE Stop: 05/30/24 09:51 Last Infusion: 05/30/24 10:25 Dose: Infused Lactated Ringer's (Lactated Ringers) 500 mls @ 999 mls/hr IV .Q31M ONE Stop: 05/30/24 14:05 Oseltamivir Phosphate (Oseltamivir 6 Mg/Ml) 75 mg PO X1 ONE Stop: 05/30/24 14:01 Assessment & Plan Plan 83-year-old female with past medical history of hypertension, hypothyroidism, 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 #Acute encephalopathy secondary to #Acute hypoxic/hypercapnic respiratory failure secondary to #Pneumonia: Viral versus hospital-acquired #Sepsis Patient presented from SNF with chief complaint of altered mental status and hypoxia. Patient uses 2 L of O2 via nasal cannula as needed, frequently on room air. Patient shortness of breath for 1 day, as well as noted to be hypoxic and lethargic, was brought to ED. Patient had no leukocytosis, but did have fever 102.4. Pro-Rafita negative. Patient on 10 L via oxymask to maintain saturation greater than 90%. ABG was taken, showed pH 7.29, PCO2 65, pO2 95. Influenza test was positive. Chest x-ray showed bibasilar pneumonia. Patient is sepsis by clear source of infection, endorgan damage as demonstrated by encephalopathy, presents with fever and hypoxia. Patient had 2 visits within the past month for acute hypoxic respiratory failure, received treatment with antibiotics and Tamiflu. On exam patient notably obtunded. - BiPAP with sitter at bedside - DuoNebs every 6 hours scheduled - Patient currently n.p.o. - Cefepime 2 g IV every 8 hours (started 05/30) - Blood cultures pending - Continuous pulse oximetry #Hypertension, currently controlled #Hypothyroidism Patient history as stated. This visit TSH 0.89, free T4 1.29. -Patient n.p.o., given IV levothyroxine 40 mcg daily #TBI Patient history as stated. Patient with poor posture, bedbound, mumbles words at baseline. Patient currently encephalopathic. - Treat encephalopathy as above DVT prophylaxis: Lovenox GI prophylaxis: None Diet: N.p.o. Lines: Peripheral IV Code status: DNR/DNI Plan of care discussed with senior resident Dr. Lai PGY?[address] Hernandez. Dennis Bolaños MD PGY?1
[2024-05-30] MEDS: RINGERS LACTATED 1000 ML 500 ML 999 ML IV (14:28)
[2024-05-30] MEDS: ALBUTEROL/IPRATROPIUM (Duoneb) RT SOL 3 ML NEBU INH ×2 (16:52→18:44)
[2024-05-30 17:36] LABS: Free T4 (Free Thyroxine) 1.29 ng/dL (0.89-1.76); Thyroid Stimulating Hormone 0.89 uIU/mL (0.55-4.78)
[2024-05-30] MEDS: CEFEPIME INJ 2 GM in SODIUM CHLORIDE 0.9% (Popper) 50 ML IV (17:37)
[2024-05-30] MEDS: LEVOTHYROXINE INJ 100 mCg VIAL 40 MCG IV (17:37)
--- NOTE | 2024-05-30 18:48 | PD.RESEVENT ---
Documentation for date of: 05/30/24 Event Note Event Note: Patient had a POLST form for limited interventions. Conversation was had with patient's sister (decision-maker) and niece regarding patient's overall prognosis and goals of care. Shared decision making was engaged and patient's family elected to make the patient DNR/DNI in line with patient's values and wishes. Patient's sister then filled out new POLST form to reflect this change in CODE STATUS. Conversation was witnessed by RN Milad and FAY Amezcua, and senior resident Dr. Lai. This goals of care conversation was discussed with senior resident Dr. Lai PGY?[address] Hernandez. Dennis Bolaños MD PGY?1
[2024-05-30 19:31] LABS: Base Excess, Venous 2 (-3-3); O2 Saturation, Venous 101 % (96-97); PCO2, Venous 42 mmHg (36-56); PO2, Venous 209 mmHg (15-58); pH, Venous 7.42 (7.33-7.66)
[2024-05-31] VITALS (15 sets, daily range): BP systolic 100–130; BP diastolic 51–66; PULSE 55–85; RESP 14–20; TEMP 36.1–37.3; O2SAT 92–100
[2024-05-31] MEDS: ALBUTEROL/IPRATROPIUM (Duoneb) RT SOL 3 ML NEBU INH ×4 (00:24→18:11)
[2024-05-31 07:38] LABS: Basophils % (Auto) 0 % (0-2.5); Eosinophils % (Auto) 0 % (0-10); Hemoglobin 12.2 g/dL (12.0-16.0); Immature Granulocytes % (Auto) 0 % (0-0); Immature Granulocytes Auto 0.03 Thou/mm3 (0.00-0.00); Lymphocytes # (Auto) 1.3 Thou/mm3 (1.0-4.8); Lymphocytes % (Auto) 16 % (10-50); Mean Corpuscular HGB Conc 30.5 g/dl (31.0-37.0); Mean Corpuscular Volume 98 fL (80-100); Monocytes # (Auto) 0.6 Thou/mm3 (0.0-0.8); Monocytes % (Auto) 7 % (0-12); Neutrophils # (Auto) 6.1 Thou/mm3 (1.8-7.7); Neutrophils % (Auto) 76 % (37-80); Nucleated Red Blood Cell % 0 /100 WBC (0); Platelet Count 196 Thou/mm3 (140-440); RDW Standard Deviation 53.1 fL (36.4-46.3); Red Blood Count 4.07 Miln/mm3 (4.00-5.20)
[2024-05-31 07:58] LABS: Alanine Aminotransferase 12 U/L (10-49); Albumin, Serum 3.4 gm/dL (3.4-4.8); Albumin/Globulin Ratio 1.4 (1.2-2.2); Alkaline Phosphatase 44 U/L (46-116); Anion Gap 9 (7-16); Aspartate Amino Transferase 23 U/L (0-34); BUN/Creatinine Ratio 34 Ratio (12-20); Bilirubin,Total 0.3 mg/dL (0.3-1.2); Blood Urea Nitrogen 17 mg/dL (9-23); Calcium 8.7 mg/dL (8.3-10.6); Calcium (Corrected) 9.2 mg/dL (8.5-10.1); Carbon Dioxide 29.2 mMol/L (20.0-31.0); Chloride 106 mMol/L (98-107); Creatinine (Component) 0.5 mg/dL (0.6-1.3); Estimated Creatinine Clearance 68.1 mL/min (>60); Globulin 2.4 gm/dL (2.3-3.5); Glucose 80 mg/dL (74-106); Magnesium 2.2 mg/dL (1.6-2.6); Osmolality,Calculated 287 (275-295); Phosphorous 3.2 mg/dL (2.4-5.1); Potassium 4.1 mMol/L (3.4-5.1); Sodium 144 mMol/L (136-145); Total Protein 5.8 gm/dL (5.7-8.2); eGFR > 60 See Note
[2024-05-31] MEDS: LEVOTHYROXINE INJ 100 mCg VIAL 40 MCG IV (08:31)
[2024-05-31] MEDS: CEFEPIME INJ 2 GM in SODIUM CHLORIDE 0.9% (Popper) 50 ML IV ×3 (08:32→21:54)
[2024-05-31] MEDS: ENOXAPARIN SOD INJ 40 MG/0.4 ML SYRINGE SC (08:49)
--- NOTE | 2024-05-31 10:33 | PC.SS ---
Ally Riley is a 83 year old female admitted to [place] for SOB. 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 Pts surrogate decision maker is her sister Marry Francis [phone]. At [facility] pt I primarily wheelchair bound. Pts PCP is Dr. Maharaj. Pt will return to [facility] at the time of DC and will need transportation. SS will remain available for any additional needs or concerns. DC plan: [facility] DM: Sister-Marry PCP: Dr. Maharaj
--- NOTE | 2024-05-31 10:35 | PC.SS ---
Rounding: One more day of monitoring, DC plan back to [facility]
--- NOTE | 2024-05-31 15:20 | ESPR_ITS ---
<Statement entered by Rodrigue Hernandez MD - 06/11/24 13:17> I reviewed above note and agree with findings and plans. I have also personally examined the patient with medicine team and went over assessment and plan with medical team including internal specialist and resident physician. Documentation for date of: 05/31/24 Subjective Subjective Interval history: No overnight events. Patient seen examined at bedside, resting comfortably. Patient alert and responsive, states feels well overall, denies shortness of breath, chest pain, fevers, chills, nausea, vomiting. Patient passed swallow eval, started on dysphagia diet. Grew GPC in 1/2 bottles, follow-up speciation. Continue antibiotic treatment. Exam Vital Signs Temp Pulse Resp BP Pulse Ox O2 Del Method O2 Flow Rate 97.0 F 80 17 130/51 L 96 Oxy Mask 3 05/31/24 11:23 05/31/24 12:51 05/31/24 12:51 05/31/24 11:23 05/31/24 12:51 05/31/24 11:23 05/31/24 12:51 FiO2 50 05/31/24 06:30 Narrative Exam Gen: Well-developed and well-nourished. Slouched over, unable to maintain good posture. HEENT: NCAT, PERRLA, EOMI, MMM, anicteric conjunctivae. CVS: normal S1 and S2. RRR. No M/R/G. Resp: Poor air movement and rhonchi throughout all lung coleman. Abd: soft, non-tender, non-distended. MSK: Good ROM in BUE & BLE. No edema or rash. Neuro: CN II-XII grossly intact. Strength 5/5 in BUE & BLE. A&O x 2, appropriately responsive, baseline. Objective Labs 05/31/24 06:57 05/31/24 06:57 Labs: Laboratory Results - last 24 hr 05/30/24 05/30/24 05/31/24 09:56 19:14 06:57 WBC 8.0 RBC 4.07 Hgb 12.2 Hct 40.0 MCV 98 MCH 30.0 MCHC 30.5 L RDW Std Deviation 53.1 H Plt Count 196 D Neut % (Auto) 76 Lymph % (Auto) 16 [place] % (Auto) 7 Eos % (Auto) 0 Baso % (Auto) 0 Neut # (Auto) 6.1 Lymph # (Auto) 1.3 [place] # (Auto) 0.6 Eos # (Auto) 0.0 Baso # (Auto) 0.0 Immature Gran # (Auto) 0.03 H Absolute Nucleated RBC 0.00 Immature Gran % 0 Nucleated RBC % 0 VBG pH 7.42 VBG pCO2 42 VBG pO2 209 H VBG O2 Sat (Danna) 101 H VBG Base Excess 2 Sodium 144 Potassium 4.1 Chloride 106 Carbon Dioxide 29.2 Anion Gap 9 BUN 17 Creatinine 0.5 L Estim Creat Clear Calc 68.1 eGFR > 60 BUN/Creatinine Ratio 34 H Glucose 80 Calculated Osmolality 287 Calcium 8.7 Corrected Calcium 9.2 Phosphorus 3.2 Magnesium 2.2 Total Bilirubin 0.3 AST 23 ALT 12 Alkaline Phosphatase 44 L Total Protein 5.8 Albumin 3.4 D Globulin 2.4 Albumin/Globulin Ratio 1.4 TSH 0.89 Free T4 1.29 ABG Interpretation ABG results: 05/30/24 05/30/24 12:24 19:14 ABG pH 7.29 L ABG pCO2 65 H ABG pO2 95 ABG HCO3 31 H ABG O2 Saturation 98 ABG Base Excess 3 VBG pH 7.42 VBG pCO2 42 VBG pO2 209 H VBG Base Excess 2 Quality Measures Quality Measures sepsis Current suspected stage: sepsis Possible source: pulmonary Blood cultures ordered: completed in ED Antibiotic ordered: Yes Advance care planning discussed with:: patient Assessment & Plan Assessment Current Active Medications: Generic Name Dose Route Start Last Admin Trade Name Freq PRN Reason Stop Dose Admin Albuterol/Ipratropium 3 ml 05/30/24 14:40 05/31/24 12:51 Albuterol/Ipratropium (Duoneb) Rt Poly 3 Ml Nebu INH 06/29/24 14:39 3 ml Q6HRRT SANDOVAL Administration Enoxaparin Sodium 40 mg 05/31/24 09:00 05/31/24 08:49 Enoxaparin Sod Inj 40 Mg/0.4 Ml Syringe SC 06/14/24 08:59 40 mg QDAY SANDOVAL Administration Cefepime HCl 2 gm/ Sodium 50 mls @ 100 mls/hr 05/31/24 14:00 05/31/24 14:15 Chloride IV 06/06/24 14:49 100 mls/hr Q8HR SANDOVAL Administration Levothyroxine Sodium 40 mcg 05/30/24 14:15 05/31/24 08:31 Levothyroxine Inj 100 Mcg Vial IV 06/29/24 14:14 40 mcg DAILY SANDOVAL Administration Oseltamivir Phosphate 75 mg 05/31/24 21:00 Oseltamivir 75 Mg Capsule PO 06/07/24 20:59 BID SANDOVAL Plan 83-year-old female with past medical history of hypertension, hypothyroidism, 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 #Acute encephalopathy (resolved) secondary to #Acute hypoxic/hypercapnic respiratory failure (resolved) secondary to #Pneumonia: Viral versus hospital-acquired #GPC bacteremia #Sepsis Patient presented from SNF with chief complaint of altered mental status and hypoxia. Patient uses 2 L of O2 via nasal cannula as needed, frequently on room air. Patient shortness of breath for 1 day, as well as noted to be hypoxic and lethargic, was brought to ED. Patient had no leukocytosis, but did have fever 102.4. Pro-Rafita negative. Patient on 10 L via oxymask to maintain saturation greater than 90%. ABG was taken, showed pH 7.29, PCO2 65, pO2 95. Influenza test was positive. Chest x-ray showed bibasilar pneumonia. Patient is sepsis by clear source of infection, endorgan damage as demonstrated by encephalopathy, presents with fever and hypoxia. Patient had 2 visits within the past month for acute hypoxic respiratory failure, received treatment with antibiotics and Tamiflu. On exam patient notably obtunded. Following day patient significant proved, A&O x 2 which is patient's baseline. Oxygen titrated down to 3 L, patient is an oxy mask as desats on nasal cannula. Patient uses 2 L as needed at home. Patient had GPC in 1/ blood cultures, speciation pending. - DuoNebs every 6 hours scheduled - Cefepime 2 g IV every 8 hours (started 05/30) - Blood cultures pending - Continuous pulse oximetry #Hypertension, currently controlled #Hypothyroidism Patient history as stated. This visit TSH 0.89, free T4 1.29. - Resume home meds, levothyroxine today 5 mcg p.o. daily #TBI Patient history as stated. Patient with poor posture, bedbound, mumbles words at baseline. Patient currently encephalopathic. - Treat encephalopathy as above DVT prophylaxis: Lovenox GI prophylaxis: None Diet: Pur?ed diet Lines: Peripheral IV Code status: DNR/DNI Plan of care discussed with attending Dr. Hernandez. Dennis Bolaños MD PGY?1
[2024-05-31] MEDS: OSELTAMIVIR 75 MG CAPSULE PO (21:55)
[2024-06-01] VITALS (13 sets, daily range): BP systolic 96–121; BP diastolic 48–72; PULSE 75–85; RESP 16–23; TEMP 36.1–37.3; O2SAT 91–95; BMI 28.8
[2024-06-01] MEDS: ALBUTEROL/IPRATROPIUM (Duoneb) RT SOL 3 ML NEBU INH ×4 (00:08→18:20)
[2024-06-01 05:42] LABS: Basophils % (Auto) 0 % (0-2.5); Eosinophils % (Auto) 1 % (0-10); Hematocrit 35.7 % (36.0-46.0); Hemoglobin 11.1 g/dL (12.0-16.0); Immature Granulocytes % (Auto) 0 % (0-0); Immature Granulocytes Auto 0.02 Thou/mm3 (0.00-0.00); Lymphocytes # (Auto) 0.7 Thou/mm3 (1.0-4.8); Lymphocytes % (Auto) 16 % (10-50); Mean Corpuscular HGB Conc 31.1 g/dl (31.0-37.0); Mean Corpuscular Hemoglobin 29.4 pg (25.0-35.0); Mean Corpuscular Volume 95 fL (80-100); Monocytes # (Auto) 0.2 Thou/mm3 (0.0-0.8); Monocytes % (Auto) 5 % (0-12); Neutrophils # (Auto) 3.6 Thou/mm3 (1.8-7.7); Neutrophils % (Auto) 78 % (37-80); Nucleated Red Blood Cell % 0 /100 WBC (0); Platelet Count 244 Thou/mm3 (140-440); RDW Standard Deviation 51.4 fL (36.4-46.3); Red Blood Count 3.77 Miln/mm3 (4.00-5.20); White Blood Count 4.7 Thou/mm3 (3.6-11.0)
[2024-06-01] MEDS: LEVOTHYROXINE SODIUM 25 MCG TABLET 75 MCG PO (05:57)
[2024-06-01] MEDS: CEFEPIME INJ 2 GM in SODIUM CHLORIDE 0.9% (Popper) 50 ML IV ×3 (05:57→21:13)
[2024-06-01 06:14] LABS: Alanine Aminotransferase 8 U/L (10-49); Albumin, Serum 3.5 gm/dL (3.4-4.8); Albumin/Globulin Ratio 1.3 (1.2-2.2); Alkaline Phosphatase 41 U/L (46-116); Anion Gap 7 (7-16); Aspartate Amino Transferase 14 U/L (0-34); BUN/Creatinine Ratio 36 Ratio (12-20); Bilirubin,Total 0.3 mg/dL (0.3-1.2); Blood Urea Nitrogen 18 mg/dL (9-23); Calcium 8.6 mg/dL (8.3-10.6); Carbon Dioxide 30.6 mMol/L (20.0-31.0); Chloride 105 mMol/L (98-107); Creatinine (Component) 0.5 mg/dL (0.6-1.3); Estimated Creatinine Clearance 68.1 mL/min (>60); Globulin 2.7 gm/dL (2.3-3.5); Glucose 104 mg/dL (74-106); Osmolality,Calculated 286 (275-295); Phosphorous 2.1 mg/dL (2.4-5.1); Potassium 3.6 mMol/L (3.4-5.1); Sodium 143 mMol/L (136-145); Total Protein 6.2 gm/dL (5.7-8.2); eGFR > 60 See Note
[2024-06-01] MEDS: ENOXAPARIN SOD INJ 40 MG/0.4 ML SYRINGE SC (09:51)
[2024-06-01] MEDS: NAPH,KPH MBDB 1 PACKET (1.5 GM) PO ×2 (09:51→20:29)
[2024-06-01] MEDS: OSELTAMIVIR 75 MG CAPSULE PO ×2 (09:51→20:29)
[2024-06-01] MEDS: VANCOMYCIN/D5W 1,250 MG IVPB 250 ML 120 MG IV (10:41)
--- NOTE | 2024-06-01 13:29 | ESPR_ITS ---
<Statement entered by Rodrigue Hernandez MD - 06/11/24 13:18> I reviewed above note and agree with findings and plans. I have also personally examined the patient with medicine team and went over assessment and plan with medical team including statistics intern and resident physician. <Statement entered by Erica Lai MD - 06/01/24 16:11> Patient was seen and examined at the bedside. No acute overnight events reported. Labs:CBC unremarkable; hemoglobin stable at 11.1 g/dL.CMP stable.Mild hypophosphatemia noted; phosphate replaced accordingly Blood culture: 1 out of 2 bottles preliminarily positive for gram-positive cocci. This may represent contamination; however, due to clinical context, we will continue cefepime and add vancomycin for MRSA coverage. Repeat blood cultures have been ordered. Patient is clinically improving. Plan to monitor for one more day. If repeat cultures remain negative and clinical status remains stable, patient will be discharged back to her facility. Patient?s sister, who is the medical decision maker, was present at the bedside. Plan and clinical status were discussed with her in detail. I discussed with and supervised the statistics intern physician who took care of this patient. I personally saw and examined the patient and discussed the assessment and plan with the entire medicine team, including my attending , I agree with the assessment and plan as documented below Erica Lai M.D. PGY-2 Disclaimer: Despite multiple revisions, due to the dictation software being used, the document bellow may not be free of grammatical errors including phonetic/typographic errors. However, this does not deter from our commitment to providing health care in the patient's best interest in mind. Documentation for date of: 06/01/24 Subjective Subjective Interval history: No overnight events. Patient seen examined at bedside, resting comfortably. Patient is alert and responsive, answer questions appropriately, is disoriented at baseline. Denies fever, chills, shortness of breath. Continue IV antibiotics. Cefepime added for GPC bacteremia, repeat blood cultures drawn. Oxygen weaned down to nasal cannula. Exam Vital Signs Temp Pulse Resp BP Pulse Ox O2 Del Method O2 Flow Rate 98.9 F 85 20 112/48 L 95 Oxy Mask 3 06/01/24 12:00 06/01/24 13:05 06/01/24 13:06/01/24 12:00 06/01/24 13:05 06/01/24 04:00 06/01/24 13:05 FiO2 50 05/31/24 06:30 Narrative Exam Gen: Well-developed and well-nourished. Slouched over, unable to maintain good posture. HEENT: NCAT, PERRLA, EOMI, MMM, anicteric conjunctivae. CVS: normal S1 and S2. RRR. No M/R/G. Resp: Poor air movement and rhonchi throughout all lung coleman. Abd: soft, non-tender, non-distended. MSK: Good ROM in BUE & BLE. No edema or rash. Neuro: CN II-XII grossly intact. Strength 5/5 in BUE & BLE. A&O x 2, appropriately responsive, baseline. Objective Labs 06/01/24 05:12 06/01/24 05:12 Labs: Laboratory Results - last 24 hr 06/01/24 05:12 WBC 4.7 D RBC 3.77 L Hgb 11.1 L Hct 35.7 L MCV 95 MCH 29.4 MCHC 31.1 RDW Std Deviation 51.4 H Plt Count 244 D Neut % (Auto) 78 Lymph % (Auto) 16 [place] % (Auto) 5 Eos % (Auto) 1 Baso % (Auto) 0 Neut # (Auto) 3.6 Lymph # (Auto) 0.7 L [place] # (Auto) 0.2 Eos # (Auto) 0.0 Baso # (Auto) 0.0 Immature Gran # (Auto) 0.02 H Absolute Nucleated RBC 0.00 Immature Gran % 0 Nucleated RBC % 0 Sodium 143 Potassium 3.6 D Chloride 105 Carbon Dioxide 30.6 Anion Gap 7 BUN 18 Creatinine 0.5 L Estim Creat Clear Calc 68.1 eGFR > 60 BUN/Creatinine Ratio 36 H Glucose 104 Calculated Osmolality 286 Calcium 8.6 Corrected Calcium 9.0 Phosphorus 2.1 L Magnesium 2.0 Total Bilirubin 0.3 AST 14 ALT 8 L Alkaline Phosphatase 41 L Total Protein 6.2 Albumin 3.5 Globulin 2.7 Albumin/Globulin Ratio 1.3 ABG Interpretation ABG results: 05/30/24 05/30/24 12:24 19:14 ABG pH 7.29 L ABG pCO2 65 H ABG pO2 95 ABG HCO3 31 H ABG O2 Saturation 98 ABG Base Excess 3 VBG pH 7.42 VBG pCO2 42 VBG pO2 209 H VBG Base Excess 2 Quality Measures Quality Measures sepsis Current suspected stage: sepsis Possible source: pulmonary Blood cultures ordered: completed in ED Antibiotic ordered: Yes Advance care planning discussed with:: patient and sibling Assessment & Plan Assessment Current Active Medications: Generic Name Dose Route Start Last Admin Trade Name Freq PRN Reason Stop Dose Admin Albuterol/Ipratropium 3 ml 05/30/24 14:40 06/01/24 13:05 Albuterol/Ipratropium (Duoneb) Rt Poly 3 Ml Nebu INH 06/29/24 14:39 3 ml Q6HRRT SANDOVAL Administration Enoxaparin Sodium 40 mg 05/31/24 09:00 06/01/24 09:51 Enoxaparin Sod Inj 40 Mg/0.4 Ml Syringe SC 06/14/24 08:59 40 mg QDAY SANDOVAL Administration Cefepime HCl 2 gm/ Sodium 50 mls @ 100 mls/hr 05/31/24 14:00 06/01/24 05:57 Chloride IV 06/06/24 14:49 100 mls/hr Q8HR SANDOVAL Administration Vancomycin/Sodium Chloride 750 mg in 150 mls @ 120 mls/hr 06/01/24 22:00 Vancomycin/Ns 750 Mg Ivpb IV 06/08/24 21:59 Q12H SANDOVAL Protocol Levothyroxine Sodium 75 mcg 06/01/24 06:00 06/01/24 05:57 Levothyroxine Sodium 25 Mcg Tablet PO 07/01/24 05:59 75 mcg ACBR SANDOVAL Administration Oseltamivir Phosphate 75 mg 05/31/24 21:00 06/01/24 09:51 Oseltamivir 75 Mg Capsule PO 06/07/24 20:59 75 mg BID SANDOVAL Administration Pharmacy Consult 1 each 06/01/24 09:30 Vancomycin Pharmacy To Dose 1 Each Each IV 07/01/24 09:29 QDAY PRN PROTOCOL Potassium Phos/Sodium Phos 1 packet 06/01/24 09:00 06/01/24 09:51 Naph,[facility] 1 Packet (1.5 Gm) PO 07/01/24 08:59 1 packet BID SANDOVAL Administration Plan 83-year-old female with past medical history of hypertension, hypothyroidism, 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 #Acute encephalopathy (resolved) secondary to #Acute hypoxic/hypercapnic respiratory failure (resolved) secondary to #Pneumonia: Viral versus hospital-acquired #GPC bacteremia #Sepsis Patient presented from [facility] with chief complaint of altered mental status and hypoxia. Patient uses 2 L of O2 via nasal cannula as needed, frequently on room air. Patient shortness of breath for 1 day, as well as noted to be hypoxic and lethargic, was brought to ED. Patient had no leukocytosis, but did have fever 102.4. Pro-Rafita negative. Patient on 10 L via oxymask to maintain saturation greater than 90%. ABG was taken, showed pH 7.29, PCO2 65, pO2 95. Influenza test was positive. Chest x-ray showed bibasilar pneumonia. Patient is sepsis by clear source of infection, endorgan damage as demonstrated by encephalopathy, presents with fever and hypoxia. Patient had 2 visits within the past month for acute hypoxic respiratory failure, received treatment with antibiotics and Tamiflu. On exam patient notably obtunded. Following day patient significant proved, A&O x 2 which is patient's baseline. Oxygen titrated down to 3 L, patient is an oxy mask as desats on nasal cannula. Patient uses 2 L as needed at home. Patient had GPC in 1/2 blood cultures, speciation pending. Vancomycin added and repeat blood cultures drawn due to GPC bacteremia. - DuoNebs every 6 hours scheduled - Cefepime 2 g IV every 8 hours (started 05/30) - Vancomycin pharmacy dosing (started 06/01) - Blood cultures pending - Continuous pulse oximetry #Hypertension, currently controlled #Hypothyroidism Patient history as stated. This visit TSH 0.89, free T4 1.29. - Resume home meds, levothyroxine 75 mcg p.o. daily #TBI, patient history Patient history as stated. Patient with poor posture, bedbound, mumbles words at baseline. Patient currently encephalopathic. Encephalopathy resolved. DVT prophylaxis: Lovenox GI prophylaxis: None Diet: Pur?ed diet Lines: Peripheral IV Code status: DNR/DNI Plan of care discussed with senior resident Dr. Lai PGY?[address] Hernandez. Dennis Bolaños MD PGY?1
[2024-06-01] MEDS: VANCOMYCIN/NS 750 MG IVPB 750 MG/150 ML BAG 120 MG IV (21:49)
[2024-06-02] VITALS (11 sets, daily range): BP systolic 100–132; BP diastolic 52–67; PULSE 67–80; RESP 16–20; TEMP 36.1–36.7; O2SAT 91–97; BMI 28.8
[2024-06-02] MEDS: ALBUTEROL/IPRATROPIUM (Duoneb) RT SOL 3 ML NEBU INH ×4 (00:55→18:38)
[2024-06-02] MEDS: CEFEPIME INJ 2 GM in SODIUM CHLORIDE 0.9% (Popper) 50 ML IV ×3 (05:34→21:00)
[2024-06-02] MEDS: LEVOTHYROXINE SODIUM 25 MCG TABLET 75 MCG PO (05:35)
[2024-06-02 06:55] LABS: Alanine Aminotransferase < 7 U/L (10-49); Albumin, Serum 3.4 gm/dL (3.4-4.8); Albumin/Globulin Ratio 1.2 (1.2-2.2); Alkaline Phosphatase 42 U/L (46-116); Anion Gap 4 (7-16); Aspartate Amino Transferase 13 U/L (0-34); BUN/Creatinine Ratio 24 Ratio (12-20); Bilirubin,Total 0.3 mg/dL (0.3-1.2); Blood Urea Nitrogen 12 mg/dL (9-23); Calcium 8.9 mg/dL (8.3-10.6); Calcium (Corrected) 9.4 mg/dL (8.5-10.1); Carbon Dioxide 34.2 mMol/L (20.0-31.0); Chloride 105 mMol/L (98-107); Creatinine (Component) 0.5 mg/dL (0.6-1.3); Estimated Creatinine Clearance 69.9 mL/min (>60); Globulin 2.8 gm/dL (2.3-3.5); Glucose 96 mg/dL (74-106); Magnesium 1.9 mg/dL (1.6-2.6); Osmolality,Calculated 284 (275-295); Phosphorous 2.7 mg/dL (2.4-5.1); Potassium 3.6 mMol/L (3.4-5.1); Sodium 143 mMol/L (136-145); Total Protein 6.2 gm/dL (5.7-8.2); eGFR > 60 See Note
[2024-06-02 06:59] LABS: Basophils % (Auto) 0 % (0-2.5); Eosinophils # (Auto) 0.1 Thou/mm3 (0.0-0.5); Eosinophils % (Auto) 2 % (0-10); Hemoglobin 11.3 g/dL (12.0-16.0); Immature Granulocytes % (Auto) 1 % (0-0); Immature Granulocytes Auto 0.02 Thou/mm3 (0.00-0.00); Lymphocytes # (Auto) 0.9 Thou/mm3 (1.0-4.8); Lymphocytes % (Auto) 21 % (10-50); Mean Corpuscular HGB Conc 31.4 g/dl (31.0-37.0); Mean Corpuscular Hemoglobin 29.7 pg (25.0-35.0); Mean Corpuscular Volume 95 fL (80-100); Monocytes # (Auto) 0.4 Thou/mm3 (0.0-0.8); Monocytes % (Auto) 9 % (0-12); Neutrophils % (Auto) 68 % (37-80); Nucleated Red Blood Cell % 0 /100 WBC (0); Platelet Count 209 Thou/mm3 (140-440); Red Blood Count 3.81 Miln/mm3 (4.00-5.20); White Blood Count 4.4 Thou/mm3 (3.6-11.0)
[2024-06-02] MEDS: ENOXAPARIN SOD INJ 40 MG/0.4 ML SYRINGE SC (08:32)
[2024-06-02] MEDS: NAPH,KPH MBDB 1 PACKET (1.5 GM) PO ×2 (08:35→20:48)
[2024-06-02] MEDS: OSELTAMIVIR 75 MG CAPSULE PO ×2 (08:35→20:48)
[2024-06-02] MEDS: VANCOMYCIN/NS 750 MG IVPB 750 MG/150 ML BAG 120 MG IV ×2 (10:27→21:41)
--- NOTE | 2024-06-02 12:21 | PD.RESPRO ---
Documentation for date of: 06/02/24 Subjective Subjective Interval history: No overnight events. Patient seen examined at bedside, resting comfortably. Patient is alert and responsive, answer questions appropriately, is disoriented at baseline. Denies fever, chills, shortness of breath. Continue IV antibiotics. Pending blood cultures. Exam Vital Signs Temp Pulse Resp BP Pulse Ox O2 Del Method O2 Flow Rate 97.2 F 76 18 114/57 L 97 Room Air 3 06/02/24 08:00 06/02/24 08:00 06/02/24 08:00 06/02/24 08:00 06/02/24 08:00 06/02/24 08:00 06/02/24 06:29 FiO2 50 05/31/24 06:30 Narrative Exam Gen: Well-developed and well-nourished. Slouched over, unable to maintain good posture. HEENT: NCAT, PERRLA, EOMI, MMM, anicteric conjunctivae. CVS: normal S1 and S2. RRR. No M/R/G. Resp: Poor air movement and rhonchi throughout all lung coleman. Abd: soft, non-tender, non-distended. MSK: Good ROM in BUE & BLE. No edema or rash. Neuro: CN II-XII grossly intact. Strength 5/5 in BUE & BLE. A&O x 2, appropriately responsive, baseline. Objective Labs 06/03/24 05:10 06/03/24 05:10 Labs: Laboratory Results - last 24 hr 06/02/24 05:21 WBC 4.4 RBC 3.81 L Hgb 11.3 L Hct 36.0 MCV 95 MCH 29.7 MCHC 31.4 RDW Std Deviation 52.0 H Plt Count 209 D Neut % (Auto) 68 Lymph % (Auto) 21 [place] % (Auto) 9 Eos % (Auto) 2 Baso % (Auto) 0 Neut # (Auto) 3.0 Lymph # (Auto) 0.9 L [place] # (Auto) 0.4 Eos # (Auto) 0.1 Baso # (Auto) 0.0 Immature Gran # (Auto) 0.02 H Absolute Nucleated RBC 0.00 Immature Gran % 1 H Nucleated RBC % 0 Sodium 143 Potassium 3.6 Chloride 105 Carbon Dioxide 34.2 H Anion Gap 4 L BUN 12 Creatinine 0.5 L Estim Creat Clear Calc 69.9 eGFR > 60 BUN/Creatinine Ratio 24 H Glucose 96 Calculated Osmolality 284 Calcium 8.9 Corrected Calcium 9.4 Phosphorus 2.7 Magnesium 1.9 Total Bilirubin 0.3 AST 13 ALT < 7 L Alkaline Phosphatase 42 L Total Protein 6.2 Albumin 3.4 Globulin 2.8 Albumin/Globulin Ratio 1.2 ABG Interpretation ABG results: 05/30/24 05/30/24 12:24 19:14 ABG pH 7.29 L ABG pCO2 65 H ABG pO2 95 ABG HCO3 31 H ABG O2 Saturation 98 ABG Base Excess 3 VBG pH 7.42 VBG pCO2 42 VBG pO2 209 H VBG Base Excess 2 Quality Measures Quality Measures sepsis Current suspected stage: sepsis Possible source: pulmonary Blood cultures ordered: completed in ED Antibiotic ordered: Yes Advance care planning discussed with:: patient and sibling Assessment & Plan Assessment Current Active Medications: Generic Name Dose Route Start Last Admin Trade Name Freq PRN Reason Stop Dose Admin Albuterol/Ipratropium 3 ml 05/30/24 14:40 06/02/24 12:12 Albuterol/Ipratropium (Duoneb) Rt Poly 3 Ml Nebu INH 06/29/24 14:39 3 ml Q6HRRT SANDOVAL Administration Enoxaparin Sodium 40 mg 05/31/24 09:00 06/02/24 08:32 Enoxaparin Sod Inj 40 Mg/0.4 Ml Syringe SC 06/14/24 08:59 40 mg QDAY SANDOVAL Administration Cefepime HCl 2 gm/ Sodium 50 mls @ 100 mls/hr 05/31/24 14:00 06/02/24 05:34 Chloride IV 06/06/24 14:49 100 mls/hr Q8HR SANDOVAL Administration Vancomycin/Sodium Chloride 750 mg in 150 mls @ 120 mls/hr 06/01/24 22:00 06/02/24 10:27 Vancomycin/Ns 750 Mg Ivpb IV 06/08/24 21:59 120 mls/hr Q12H SANDOVAL Administration Protocol Levothyroxine Sodium 75 mcg 06/01/24 06:00 06/02/24 05:35 Levothyroxine Sodium 25 Mcg Tablet PO 07/01/24 05:59 75 mcg ACBR SANDOVAL Administration Oseltamivir Phosphate 75 mg 05/31/24 21:00 04/19/25 08:35 Oseltamivir 75 Mg Capsule PO 06/07/24 20:59 75 mg BID [facility] Administration Pharmacy Consult 1 each 06/01/24 09:30 Vancomycin Pharmacy To Dose 1 Each Each IV 07/01/24 09:29 QDAY PRN PROTOCOL Potassium Phos/Sodium Phos 1 packet 06/01/24 09:00 06/02/24 08:35 Naph,[facility] 1 Packet (1.5 Gm) PO 07/01/24 08:59 1 packet BID [facility] Administration Plan 83-year-old female with past medical history of hypertension, hypothyroidism, 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 #Acute encephalopathy (resolved) secondary to #Acute hypoxic/hypercapnic respiratory failure (resolved) secondary to # Influenza pneumonia, possible hospital associated pneumonia #GPC bacteremia #Sepsis Patient presented from SNF with chief complaint of altered mental status and hypoxia. Patient uses 2 L of O2 via nasal cannula as needed, frequently on room air. Patient shortness of breath for 1 day, as well as noted to be hypoxic and lethargic, was brought to ED. Patient had no leukocytosis, but did have fever 102.4. Pro-Rafita negative. Patient on 10 L via oxymask to maintain saturation greater than 90%. ABG was taken, showed pH 7.29, PCO2 65, pO2 95. Influenza test was positive. Chest x-ray showed bibasilar pneumonia. Patient is sepsis by clear source of infection, endorgan damage as demonstrated by encephalopathy, presents with fever and hypoxia. Patient had 2 visits within the past month for acute hypoxic respiratory failure, received treatment with antibiotics and Tamiflu. On exam patient notably obtunded. Following day patient significant proved, A&O x 2 which is patient's baseline. Oxygen titrated down to 3 L, patient is an oxy mask as desats on nasal cannula. Patient uses 2 L as needed at home. Patient had GPC in 1/2 blood cultures, speciation pending. Vancomycin added and repeat blood cultures drawn due to GPC bacteremia. - DuoNebs every 6 hours scheduled - Cefepime 2 g IV every 8 hours (started 05/30) - Vancomycin pharmacy dosing (started 06/01) - Blood cultures pending - Continuous pulse oximetry #Hypertension, currently controlled #Hypothyroidism Patient history as stated. This visit TSH 0.89, free T4 1.29. - Resume home meds, levothyroxine 75 mcg p.o. daily #TBI, patient history Patient history as stated. Patient with poor posture, bedbound, mumbles words at baseline. Patient currently encephalopathic. Encephalopathy resolved. DVT prophylaxis: Lovenox GI prophylaxis: None Diet: Pur?ed diet Lines: Peripheral IV Code status: DNR/DNI Plan of care discussed with attending Dr. Lares. Dennis Bolaños MD PGY?1 Attending Provider Attestation/Addendum I reviewed labs, imaging, EKG, home medications and prior available records. Face to face evaluation was performed by me. I have personally examined the patient and discussed assessment and plan with the IM team. I reviewed the resident note and agree with the plan with exceptions as below. Acute hypoxic respiratory failure Influenza A Healthcare associated pneumonia Gram-positive bacteremia Oxygen needs are improving Continue vancomycin/cefepime Continue Tamiflu Repeat blood culture: Negative to date She is DNR/DNI. She is high risk of readmission and recurrence of pneumonia
--- NOTE | 2024-06-02 18:19 | PC.NURSE ---
patient has avasure telesitter in place per pt chart initiation on 05/30/2024
[2024-06-02 21:35] LABS: Vancomycin,Trough 15.9 mcg/mL (5.0-10.0)
[2024-06-03] VITALS (12 sets, daily range): BP systolic 94–116; BP diastolic 54–65; PULSE 7–88; RESP 16–20; TEMP 36.1–36.4; O2SAT 91–96; BMI 28.9
[2024-06-03] MEDS: ALBUTEROL/IPRATROPIUM (Duoneb) RT SOL 3 ML NEBU INH ×4 (01:15→18:05)
[2024-06-03] MEDS: LEVOTHYROXINE SODIUM 25 MCG TABLET 75 MCG PO (05:09)
[2024-06-03] MEDS: CEFEPIME INJ 2 GM in SODIUM CHLORIDE 0.9% (Popper) 50 ML IV ×3 (05:10→21:04)
[2024-06-03 05:37] LABS: Basophils % (Auto) 0 % (0-2.5); Eosinophils # (Auto) 0.1 Thou/mm3 (0.0-0.5); Eosinophils % (Auto) 1 % (0-10); Hematocrit 34.6 % (36.0-46.0); Hemoglobin 10.6 g/dL (12.0-16.0); Immature Granulocytes % (Auto) 0 % (0-0); Immature Granulocytes Auto 0.02 Thou/mm3 (0.00-0.00); Lymphocytes # (Auto) 1.2 Thou/mm3 (1.0-4.8); Lymphocytes % (Auto) 26 % (10-50); Mean Corpuscular HGB Conc 30.6 g/dl (31.0-37.0); Mean Corpuscular Hemoglobin 29.9 pg (25.0-35.0); Mean Corpuscular Volume 98 fL (80-100); Monocytes # (Auto) 0.4 Thou/mm3 (0.0-0.8); Monocytes % (Auto) 8 % (0-12); Neutrophils # (Auto) 3.1 Thou/mm3 (1.8-7.7); Neutrophils % (Auto) 65 % (37-80); Nucleated Red Blood Cell % 0 /100 WBC (0); Platelet Count 214 Thou/mm3 (140-440); RDW Standard Deviation 52.5 fL (36.4-46.3); Red Blood Count 3.54 Miln/mm3 (4.00-5.20); White Blood Count 4.8 Thou/mm3 (3.6-11.0)
[2024-06-03 06:50] LABS: Alanine Aminotransferase < 7 U/L (10-49); Albumin, Serum 3.3 gm/dL (3.4-4.8); Albumin/Globulin Ratio 1.3 (1.2-2.2); Alkaline Phosphatase 39 U/L (46-116); Anion Gap 5 (7-16); Aspartate Amino Transferase 11 U/L (0-34); BUN/Creatinine Ratio 33 Ratio (12-20); Bilirubin,Total 0.3 mg/dL (0.3-1.2); Blood Urea Nitrogen 13 mg/dL (9-23); Calcium 8.7 mg/dL (8.3-10.6); Calcium (Corrected) 9.3 mg/dL (8.5-10.1); Carbon Dioxide 34.6 mMol/L (20.0-31.0); Chloride 105 mMol/L (98-107); Creatinine (Component) 0.4 mg/dL (0.6-1.3); Estimated Creatinine Clearance 87.5 mL/min (>60); Globulin 2.6 gm/dL (2.3-3.5); Glucose 102 mg/dL (74-106); Osmolality,Calculated 288 (275-295); Potassium 3.4 mMol/L (3.4-5.1); Sodium 145 mMol/L (136-145); Total Protein 5.9 gm/dL (5.7-8.2); eGFR > 60 See Note
--- NOTE | 2024-06-03 08:57 | PC.SS ---
SS follow up note; Blood cultures pending, possible discharge tomorrow.
[2024-06-03] MEDS: VANCOMYCIN/NS 750 MG IVPB 750 MG/150 ML BAG 120 MG IV (09:42)
[2024-06-03] MEDS: NAPH,KPH MBDB 1 PACKET (1.5 GM) PO ×2 (09:43→20:32)
[2024-06-03] MEDS: OSELTAMIVIR 75 MG CAPSULE PO ×2 (09:43→20:32)
[2024-06-03] MEDS: ENOXAPARIN SOD INJ 40 MG/0.4 ML SYRINGE SC (09:43)
--- NOTE | 2024-06-03 11:01 | PC.SS ---
SS contacted Nay from [facility] in regards to patient discharging possibly today, Nay said she does not have Isolation room until possibly tomorrow. SS will need to follow up with Nay tomorrow.
--- NOTE | 2024-06-03 15:57 | ESPR_ITS ---
Documentation for date of: 06/03/24 Subjective Subjective Interval history: Patient was evaluated bedside, at baseline mental status, saturating well on 2 L nasal cannula O2. Continued on Tamiflu. Case management to reach out to facility, reported they may have an isolation room opening up tomorrow otherwise patient will need to complete 7 days of hospital stay before moving to the facility. Blood cultures grew Staphylococcus hemolyticus 1/2, likely contaminant. Negative repeat blood cultures at 48 hours and both bottles. Negative MRSA screen, will discontinue vancomycin. Will continue cefepime and Tamiflu for treatment of pneumonia. Exam Vital Signs Temp Pulse Resp BP Pulse Ox O2 Del Method O2 Flow Rate 97.2 F 73 16 116/65 95 Nasal Cannula 2 06/03/24 12:00 06/03/24 13:45 06/03/24 13:45 06/03/24 12:00 06/03/24 13:45 06/03/24 12:00 06/03/24 13:45 FiO2 50 05/31/24 06:30 Narrative Exam Gen: Well-developed and well-nourished. Slouched over, unable to maintain good posture. HEENT: NCAT, PERRLA, EOMI, MMM, anicteric conjunctivae. CVS: normal S1 and S2. RRR. No M/R/G. Resp: Poor air movement and rhonchi throughout all lung [place]. Abd: soft, non-tender, non-distended. MSK: Good ROM in BUE & BLE. No edema or rash. Neuro: CN II-XII grossly intact. Strength 5/5 in BUE & BLE. A&O x 2, appropriately responsive, baseline. Objective Labs 06/04/24 04:33 06/04/24 04:33 Labs: Laboratory Results - last 24 hr 06/02/24 06/03/24 21:08 05:10 WBC 4.8 RBC 3.54 L Hgb 10.6 L Hct 34.6 L MCV 98 MCH 29.9 MCHC 30.6 L RDW Std Deviation 52.5 H Plt Count 214 Neut % (Auto) 65 Lymph % (Auto) 26 [place] % (Auto) 8 Eos % (Auto) 1 Baso % (Auto) 0 Neut # (Auto) 3.1 Lymph # (Auto) 1.2 [place] # (Auto) 0.4 Eos # (Auto) 0.1 Baso # (Auto) 0.0 Immature Gran # (Auto) 0.02 H Absolute Nucleated RBC 0.00 Immature Gran % 0 Nucleated RBC % 0 Sodium 145 Potassium 3.4 Chloride 105 Carbon Dioxide 34.6 H Anion Gap 5 L BUN 13 Creatinine 0.4 L Estim Creat Clear Calc 87.5 eGFR > 60 BUN/Creatinine Ratio 33 H Glucose 102 Calculated Osmolality 288 Calcium 8.7 Corrected Calcium 9.3 Total Bilirubin 0.3 AST 11 ALT < 7 L Alkaline Phosphatase 39 L Total Protein 5.9 Albumin 3.3 L Globulin 2.6 Albumin/Globulin Ratio 1.3 Vancomycin Trough 15.9 H ABG Interpretation ABG results: 05/30/24 05/30/24 12:24 19:14 ABG pH 7.29 L ABG pCO2 65 H ABG pO2 95 ABG HCO3 31 H ABG O2 Saturation 98 ABG Base Excess 3 VBG pH 7.42 VBG pCO2 42 VBG pO2 209 H VBG Base Excess 2 Quality Measures Quality Measures sepsis Current suspected stage: sepsis Possible source: pulmonary Blood cultures ordered: completed in ED Antibiotic ordered: Yes Advance care planning discussed with:: patient Assessment & Plan Assessment Current Active Medications: Generic Name Dose Route Start Last Admin Trade Name Freq PRN Reason Stop Dose Admin Albuterol/Ipratropium 3 ml 05/30/24 14:40 06/03/24 13:44 Albuterol/Ipratropium (Duoneb) Rt Poly 3 Ml Nebu INH 06/29/24 14:39 3 ml Q6HRRT SANDOVAL Administration Enoxaparin Sodium 40 mg 05/31/24 09:00 06/03/24 09:43 Enoxaparin Sod Inj 40 Mg/0.4 Ml Syringe SC 06/14/24 08:59 40 mg QDAY SANDOVAL Administration Cefepime HCl 2 gm/ Sodium 50 mls @ 100 mls/hr 05/31/24 14:00 06/03/24 05:10 Chloride IV 06/06/24 14:49 100 mls/hr Q8HR SANDOVAL Administration Vancomycin/Sodium Chloride 750 mg in 150 mls @ 120 mls/hr 06/01/24 22:00 06/03/24 09:42 Vancomycin/Ns 750 Mg Ivpb IV 06/08/24 21:59 120 mls/hr Q12H SANDOVAL Administration Protocol Levothyroxine Sodium 75 mcg 06/01/24 06:00 06/03/24 05:09 Levothyroxine Sodium 25 Mcg Tablet PO 07/01/24 05:59 75 mcg ACBR SANDOVAL Administration Oseltamivir Phosphate 75 mg 05/31/24 21:00 06/03/24 09:43 Oseltamivir 75 Mg Capsule PO 06/07/24 20:59 75 mg BID SANDOVAL Administration Pharmacy Consult 1 each 06/01/24 09:30 Vancomycin Pharmacy To Dose 1 Each Each IV 07/01/24 09:29 QDAY PRN PROTOCOL Potassium Phos/Sodium Phos 1 packet 06/01/24 09:00 06/03/24 09:43 Naph,[facility] 1 Packet (1.5 Gm) PO 07/01/24 08:59 1 packet BID SANDOVAL Administration Plan 83-year-old female with past medical history of hypertension, hypothyroidism, 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 #Acute encephalopathy (resolved) secondary to #Acute hypoxic/hypercapnic respiratory failure (resolved) secondary to # Influenza pneumonia, possible hospital associated pneumonia #GPC bacteremia #Sepsis Patient presented from SNF with chief complaint of altered mental status and hypoxia. Patient uses 2 L of O2 via nasal cannula as needed, frequently on room air. Patient shortness of breath for 1 day, as well as noted to be hypoxic and lethargic, was brought to ED. Patient had no leukocytosis, but did have fever 102.4. Pro-Rafita negative. Patient on 10 L via oxymask to maintain saturation greater than 90%. ABG was taken, showed pH 7.29, PCO2 65, pO2 95. Influenza test was positive. Chest x-ray showed bibasilar pneumonia. Patient is sepsis by clear source of infection, endorgan damage as demonstrated by encephalopathy, presents with fever and hypoxia. Patient had 2 visits within the past month for acute hypoxic respiratory failure, received treatment with antibiotics and Tamiflu. On exam patient notably obtunded. Following day patient significant proved, A&O x 2 which is patient's baseline. Oxygen titrated down to 3 L, patient is an oxy mask as desats on nasal cannula. Patient uses 2 L as needed at home. Blood cultures grew Staphylococcus hemolyticus 1/2, likely contaminant. Negative repeat blood cultures at 48 hours and both bottles. Negative MRSA screen, will discontinue vancomycin. Will continue cefepime and Tamiflu for treatment of pneumonia. - DuoNebs every 6 hours scheduled - Cefepime 2 g IV every 8 hours (started 05/30) - Vancomycin pharmacy dosing (started 06/01 -06/03) - Blood cultures pending - Continuous pulse oximetry -Tamiflu #Hypertension, currently controlled #Hypothyroidism Patient history as stated. This visit TSH 0.89, free T4 1.29. - Resume home meds, levothyroxine 75 mcg p.o. daily #TBI, patient history Patient history as stated. Patient with poor posture, bedbound, mumbles words at baseline. Patient currently encephalopathic. Encephalopathy resolved. DVT prophylaxis: Lovenox GI prophylaxis: None Diet: Pur?ed diet Lines: Peripheral IV Code status: DNR/DNI Plan of care discussed with attending Dr. Lares. Dennis Bolaños MD PGY?1 Attending Provider Attestation/Addendum I reviewed labs, imaging, EKG, home medications and prior available records. Face to face evaluation was performed by me. I have personally examined the patient and discussed assessment and plan with the IM team. I reviewed the resident note and agree with the plan with exceptions as below. Acute hypoxic respiratory failure Influenza A Healthcare associated pneumonia Gram-positive bacteremia Oxygen needs are improving Continue vancomycin/cefepime Continue Tamiflu First set of blood cultures showed staph H. likely contamination. Repeat blood culture: Negative to date She is DNR/DNI. She is high risk of readmission and recurrence of pneumonia Discussed with vp digital marketing social media and crm: They will try to find an isolation room given her influenza positive status.
[2024-06-04] VITALS (12 sets, daily range): BP systolic 109–121; BP diastolic 51–71; PULSE 66–86; RESP 16–21; TEMP 36.1–37.1; O2SAT 91–99; BMI 28.9
[2024-06-04] MEDS: ALBUTEROL/IPRATROPIUM (Duoneb) RT SOL 3 ML NEBU INH ×4 (01:15→18:23)
[2024-06-04] MEDS: LEVOTHYROXINE SODIUM 25 MCG TABLET 75 MCG PO (05:15)
[2024-06-04] MEDS: CEFEPIME INJ 2 GM in SODIUM CHLORIDE 0.9% (Popper) 50 ML IV ×3 (05:16→22:23)
[2024-06-04 06:06] LABS: Basophils % (Auto) 0 % (0-2.5); Eosinophils # (Auto) 0.1 Thou/mm3 (0.0-0.5); Eosinophils % (Auto) 2 % (0-10); Hematocrit 35.2 % (36.0-46.0); Hemoglobin 10.8 g/dL (12.0-16.0); Immature Granulocytes % (Auto) 1 % (0-0); Immature Granulocytes Auto 0.02 Thou/mm3 (0.00-0.00); Lymphocytes # (Auto) 1.2 Thou/mm3 (1.0-4.8); Lymphocytes % (Auto) 28 % (10-50); Mean Corpuscular HGB Conc 30.7 g/dl (31.0-37.0); Mean Corpuscular Hemoglobin 29.9 pg (25.0-35.0); Mean Corpuscular Volume 98 fL (80-100); Monocytes # (Auto) 0.3 Thou/mm3 (0.0-0.8); Monocytes % (Auto) 8 % (0-12); Neutrophils # (Auto) 2.6 Thou/mm3 (1.8-7.7); Neutrophils % (Auto) 61 % (37-80); Nucleated Red Blood Cell % 0 /100 WBC (0); Platelet Count 200 Thou/mm3 (140-440); Red Blood Count 3.61 Miln/mm3 (4.00-5.20); White Blood Count 4.2 Thou/mm3 (3.6-11.0)
[2024-06-04 06:47] LABS: Alanine Aminotransferase < 7 U/L (10-49); Albumin, Serum 3.3 gm/dL (3.4-4.8); Albumin/Globulin Ratio 1.2 (1.2-2.2); Alkaline Phosphatase 43 U/L (46-116); Anion Gap 2 (7-16); Aspartate Amino Transferase < 10 U/L (0-34); BUN/Creatinine Ratio 35 Ratio (12-20); Bilirubin,Total 0.3 mg/dL (0.3-1.2); Blood Urea Nitrogen 14 mg/dL (9-23); Calcium 8.7 mg/dL (8.3-10.6); Calcium (Corrected) 9.3 mg/dL (8.5-10.1); Chloride 105 mMol/L (98-107); Creatinine (Component) 0.4 mg/dL (0.6-1.3); Estimated Creatinine Clearance 87.5 mL/min (>60); Globulin 2.8 gm/dL (2.3-3.5); Glucose 98 mg/dL (74-106); Osmolality,Calculated 289 (275-295); Potassium 3.5 mMol/L (3.4-5.1); Sodium 145 mMol/L (136-145); Total Protein 6.1 gm/dL (5.7-8.2); eGFR > 60 See Note
[2024-06-04] MEDS: ENOXAPARIN SOD INJ 40 MG/0.4 ML SYRINGE SC (08:34)
[2024-06-04] MEDS: OSELTAMIVIR 75 MG CAPSULE PO ×2 (08:34→22:23)
[2024-06-04] MEDS: NAPH,KPH MBDB 1 PACKET (1.5 GM) PO ×2 (08:34→22:23)
--- NOTE | 2024-06-04 09:21 | PC.SS ---
Follow up note: SS spoke to Lorie @ [facility] and they can accept patient back today with an isolation room. SS updated physician team. D/c today back to [facility] by chris
--- NOTE | 2024-06-04 10:15 | PC.SS ---
Follow up note: Patient has d/c orders for today. SS spoke to [facility] and they agreed to take patient today. They have a private room to continue isolation measures. Patient is on day 4 of 7 day course treatment. SS updated physician team and patient's sister. Patient's sister states she does not want patient to d/c today. She feels it is too soon and will file appeal if they continue to discharge today. Sister will be here at 11:30a.m. to speak with physician. IMM rights discussed with sister.
--- NOTE | 2024-06-04 10:31 | XR_ITS ---
Examination: CT chest with intravenous contrast 2-D sagittal and coronal reconstructions Exam date and time: June 04, 2024 12:14 PM Comparison December 29, 2023 INDICATIONS: Coughing congestion shortness of breath this week CTDI:vol (mGy) 13 DLP: (mGycm) 423 Technique: Multiple axial sections of the thorax have been obtained. Sections have been obtained, 3 mm slice thickness. Mediastinal and lung density settings have been obtained. Intravenous contrast administered, 60 cc 0 370. 2-D sagittal, coronal images obtained. Low dose protocols were performed. One or more of the following dose reduction techniques were used; automated exposure control, adjustment of the mA and/or KV according to patient size, use of iterative reconstruction technique. Findings: Heavy thoracic aortic calcification no aneurysmal dilatation Pulmonary artery segments are not enlarged No pulmonary artery filling defects on this non-CTA study Bibasilar pneumonia, prominent left base Significant coronary artery calcification No focal liver or splenic lesion No pancreatic mass Severe osteopenia with prominent thoracolumbar levoscoliosis IMPRESSION: Bibasilar pneumonia, prominent left base, consider aspiration pneumonia
--- NOTE | 2024-06-04 12:00 | PC.NURSE ---
Pt transfer to CT via gurney, hemp fiber taker off, and oxy mask, accompanied by Nelson STRAUSS, and Marry sister.
--- NOTE | 2024-06-04 14:49 | ESPR_ITS ---
Documentation for date of: 06/04/24 Subjective Subjective Interval history: No overnight events. Patient seen examined at bedside, resting comfortably. Patient had episode of desaturation, requiring O2 to be increased to 10 L via oxymask. Patient denies fevers, chills, chest pain, nausea, vomiting. Endorses mild shortness of breath. CT showed bibasilar pneumonia concerning for atelectasis. Will reconsult speech therapy, plan for goals of care with family. Exam Vital Signs Temp Pulse Resp BP Pulse Ox O2 Del Method O2 Flow Rate 97.4 F 76 18 121/56 L 99 Room Air 3 06/04/24 12:00 06/04/24 13:33 06/04/24 13:33 06/04/24 12:00 06/04/24 13:06/04/24 12:00 06/04/24 13: FiO2 50 05/31/24 06:30 Narrative Exam Gen: Well-developed and well-nourished. Slouched over, unable to maintain good posture. HEENT: NCAT, PERRLA, EOMI, MMM, anicteric conjunctivae. CVS: normal S1 and S2. RRR. No M/R/G. Resp: Poor air movement and rhonchi throughout all lung coleman. Abd: soft, non-tender, non-distended. MSK: Good ROM in BUE & BLE. No edema or rash. Neuro: CN II-XII grossly intact. Strength 5/5 in BUE & BLE. A&O x 2, appropriately responsive, baseline. Objective Labs 06/04/24 04:33 06/04/24 04:33 Labs: Laboratory Results - last 24 hr 06/04/24 04:33 WBC 4.2 RBC 3.61 L Hgb 10.8 L Hct 35.2 L MCV 98 MCH 29.9 MCHC 30.7 L RDW Std Deviation 52.0 H Plt Count 200 Neut % (Auto) 61 Lymph % (Auto) 28 [place] % (Auto) 8 Eos % (Auto) 2 Baso % (Auto) 0 Neut # (Auto) 2.6 Lymph # (Auto) 1.2 [place] # (Auto) 0.3 Eos # (Auto) 0.1 Baso # (Auto) 0.0 Immature Gran # (Auto) 0.02 H Absolute Nucleated RBC 0.00 Immature Gran % 1 H Nucleated RBC % 0 Sodium 145 Potassium 3.5 Chloride 105 Carbon Dioxide 38.0 H Anion Gap 2 L BUN 14 Creatinine 0.4 L Estim Creat Clear Calc 87.5 eGFR > 60 BUN/Creatinine Ratio 35 H Glucose 98 Calculated Osmolality 289 Calcium 8.7 Corrected Calcium 9.3 Total Bilirubin 0.3 AST < 10 ALT < 7 L Alkaline Phosphatase 43 L Total Protein 6.1 Albumin 3.3 L Globulin 2.8 Albumin/Globulin Ratio 1.2 ABG Interpretation ABG results: 05/30/24 05/30/24 12:24 19:14 ABG pH 7.29 L ABG pCO2 65 H ABG pO2 95 ABG HCO3 31 H ABG O2 Saturation 98 ABG Base Excess 3 VBG pH 7.42 VBG pCO2 42 VBG pO2 209 H VBG Base Excess 2 Quality Measures Quality Measures sepsis Current suspected stage: sepsis Possible source: pulmonary Blood cultures ordered: completed in ED Antibiotic ordered: Yes Advance care planning discussed with:: patient and sibling Assessment & Plan Assessment Current Active Medications: Generic Name Dose Route Start Last Admin Trade Name Freq PRN Reason Stop Dose Admin Albuterol/Ipratropium 3 ml 05/30/24 14:40 06/04/24 13:30 Albuterol/Ipratropium (Duoneb) Rt Poly 3 Ml Nebu INH 06/29/24 14:39 3 ml Q6HRRT SANDOVAL Administration Enoxaparin Sodium 40 mg 05/31/24 09:00 06/04/24 08:34 Enoxaparin Sod Inj 40 Mg/0.4 Ml Syringe SC 06/14/24 08:59 40 mg QDAY SANDOVAL Administration Cefepime HCl 2 gm/ Sodium 50 mls @ 100 mls/hr 05/31/24 14:00 06/04/24 14:12 Chloride IV 06/06/24 14:49 100 mls/hr Q8HR SANDOVAL Administration Levothyroxine Sodium 75 mcg 06/01/24 06:00 06/04/24 05:15 Levothyroxine Sodium 25 Mcg Tablet PO 07/01/24 05:59 75 mcg ACBR SANDOVAL Administration Oseltamivir Phosphate 75 mg 05/31/24 21:00 06/04/24 08:34 Oseltamivir 75 Mg Capsule PO 06/07/24 20:59 75 mg BID SANDOVAL Administration Potassium Phos/Sodium Phos 1 packet 06/01/24 09:00 06/04/24 08:34 Naph,[facility] Mbdb 1 Packet (1.5 Gm) PO 07/01/24 08:59 1 packet BID SANDOVAL Administration Sennosides 2 tab 06/04/24 10:13 Senna Tablet PO 07/05/24 08:59 QDAY PRN CONSTIPATION Protocol Plan 83-year-old female with past medical history of hypertension, hypothyroidism, 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 #Acute encephalopathy (resolved) secondary to #Acute hypoxic/hypercapnic respiratory failure (resolved) secondary to # Influenza pneumonia, possible hospital associated pneumonia #GPC bacteremia #Sepsis Patient presented from SNF with chief complaint of altered mental status and hypoxia. Patient uses 2 L of O2 via nasal cannula as needed, frequently on room air. Patient shortness of breath for 1 day, as well as noted to be hypoxic and lethargic, was brought to ED. Patient had no leukocytosis, but did have fever 102.4. Pro-Rafita negative. Patient on 10 L via oxymask to maintain saturation greater than 90%. ABG was taken, showed pH 7.29, PCO2 65, pO2 95. Influenza test was positive. Chest x-ray showed bibasilar pneumonia. Patient is sepsis by clear source of infection, endorgan damage as demonstrated by encephalopathy, presents with fever and hypoxia. Patient had 2 visits within the past month for acute hypoxic respiratory failure, received treatment with antibiotics and Tamiflu. On exam patient notably obtunded. Following day patient significant proved, A&O x 2 which is patient's baseline. Oxygen titrated down to 3 L, patient is an oxy mask as desats on nasal cannula. Patient uses 2 L as needed at home. Blood cultures grew Staphylococcus hemolyticus 1/2, likely contaminant. Negative repeat blood cultures at 48 hours and both bottles. Negative MRSA screen, will discontinue vancomycin. Will continue cefepime and Tamiflu for treatment of pneumonia. Patient had episode of desaturation requiring increased oxygen delivery. CT showed bibasilar pneumonia, primarily left base, pattern concerning for aspiration. - DuoNebs every 6 hours scheduled - Cefepime 2 g IV every 8 hours (started 05/30) - Vancomycin pharmacy dosing (started 06/01 -06/03) - Blood cultures pending - Continuous pulse oximetry - Tamiflu - Reconsulted speech therapy - O2, titrate as needed #Hypertension, currently controlled #Hypothyroidism Patient history as stated. This visit TSH 0.89, free T4 1.29. - Resume home meds, levothyroxine 75 mcg p.o. daily #TBI, patient history Patient history as stated. Patient with poor posture, bedbound, mumbles words at baseline. Patient currently encephalopathic. Encephalopathy resolved. DVT prophylaxis: Lovenox GI prophylaxis: None Diet: Pur?ed diet Lines: Peripheral IV Code status: DNR/DNI Plan of care discussed with attending Dr. Lares. Dennis Bolaños MD PGY?1 Attending Provider Attestation/Addendum I reviewed labs, imaging, EKG, home medications and prior available records. Face to face evaluation was performed by me. I have personally examined the patient and discussed assessment and plan with the IM team. I reviewed the resident note and agree with the plan with exceptions as below. Acute hypoxic respiratory failure Influenza A Healthcare associated pneumonia Gram-positive bacteremia Goals of care discussion/counseling Oxygen needs got worse, up to 10 L. Possible aspiration Finish a course of vancomycin/cefepime Tamiflu for 5 days First set of blood cultures showed staph H. likely contamination. Repeat blood culture: Negative to date Ordered CT scan of the chest that showed pneumonia in both lower lobes, likely aspiration Ordered repeat swallow evaluation She is DNR/DNI. She is high risk of readmission and recurrence of pneumonia Discussed with social worker health services: Will arrange for goals of care discussion
--- NOTE | 2024-06-04 14:49 | PC.SS ---
rounding: D/c held. Patient needs to be evaluated for swallow eval and CT. Discussion now of possible peg tube. D/c pending to [facility].
[2024-06-05] VITALS (10 sets, daily range): BP systolic 99–132; BP diastolic 52–80; PULSE 63–82; RESP 17–20; TEMP 36.1–36.3; O2SAT 93–100; BMI 28.4
[2024-06-05] MEDS: ALBUTEROL/IPRATROPIUM (Duoneb) RT SOL 3 ML NEBU INH ×4 (00:14→18:42)
[2024-06-05] MEDS: LEVOTHYROXINE SODIUM 25 MCG TABLET 75 MCG PO (06:16)
[2024-06-05] MEDS: CEFEPIME INJ 2 GM in SODIUM CHLORIDE 0.9% (Popper) 50 ML IV (06:16)
[2024-06-05 06:36] LABS: Cortisol,total,LC/MS/MS* 20.8 mcg/dL
[2024-06-05] MEDS: ENOXAPARIN SOD INJ 40 MG/0.4 ML SYRINGE SC (08:50)
[2024-06-05] MEDS: cefTRIAXone/D5w 1gm IV premix 1 GM/50 ML BAG IV (10:56)
[2024-06-05 11:01] LABS: Basophils % (Auto) 1 % (0-2.5); Eosinophils # (Auto) 0.2 Thou/mm3 (0.0-0.5); Eosinophils % (Auto) 5 % (0-10); Hematocrit 34.5 % (36.0-46.0); Hemoglobin 10.9 g/dL (12.0-16.0); Immature Granulocytes % (Auto) 1 % (0-0); Immature Granulocytes Auto 0.03 Thou/mm3 (0.00-0.00); Lymphocytes # (Auto) 1.1 Thou/mm3 (1.0-4.8); Lymphocytes % (Auto) 27 % (10-50); Mean Corpuscular HGB Conc 31.6 g/dl (31.0-37.0); Mean Corpuscular Hemoglobin 29.6 pg (25.0-35.0); Mean Corpuscular Volume 94 fL (80-100); Monocytes # (Auto) 0.4 Thou/mm3 (0.0-0.8); Monocytes % (Auto) 9 % (0-12); Neutrophils # (Auto) 2.4 Thou/mm3 (1.8-7.7); Neutrophils % (Auto) 58 % (37-80); Nucleated Red Blood Cell % 0 /100 WBC (0); Platelet Count 216 Thou/mm3 (140-440); RDW Standard Deviation 48.7 fL (36.4-46.3); Red Blood Count 3.68 Miln/mm3 (4.00-5.20); White Blood Count 4.1 Thou/mm3 (3.6-11.0)
[2024-06-05 11:28] LABS: Alanine Aminotransferase < 7 U/L (10-49); Albumin, Serum 3.3 gm/dL (3.4-4.8); Albumin/Globulin Ratio 1.1 (1.2-2.2); Alkaline Phosphatase 40 U/L (46-116); Anion Gap 1 (7-16); Aspartate Amino Transferase 11 U/L (0-34); BUN/Creatinine Ratio 33 Ratio (12-20); Bilirubin,Total 0.2 mg/dL (0.3-1.2); Blood Urea Nitrogen 13 mg/dL (9-23); Calcium 8.8 mg/dL (8.3-10.6); Calcium (Corrected) 9.4 mg/dL (8.5-10.1); Carbon Dioxide 37.8 mMol/L (20.0-31.0); Chloride 104 mMol/L (98-107); Creatinine (Component) 0.4 mg/dL (0.6-1.3); Estimated Creatinine Clearance 86.7 mL/min (>60); Globulin 2.9 gm/dL (2.3-3.5); Glucose 119 mg/dL (74-106); Osmolality,Calculated 286 (275-295); Potassium 3.6 mMol/L (3.4-5.1); Sodium 143 mMol/L (136-145); Total Protein 6.2 gm/dL (5.7-8.2); eGFR > 60 See Note
--- NOTE | 2024-06-05 12:31 | PC.SS ---
Follow up note: Goals of care meeting held with patient's sister, physician team, SS and SCHOOL RESOURCE OFFICER. Sister was provided medical update. Concerns for re-aspiration. Patient has been in hospital 3 x in this month. Patient will eventlaly return to [facility]. She's on a 7 day course of tamiflu. Patient is DNR. Hospice was also discussed. Sister states she will be talking to her family about their decison. Peg tube was also discussed. Sister states patient had verbalized prior that she never wanted this. She will be respecting her wishes. Physician team will have another swallow eval ordered for dysphagia. Poss d/c today. Sister may consider filing an appeal if d/c orders are placed today. SS will follow up with sister this afternoon.
--- NOTE | 2024-06-05 17:18 | ESPR_ITS ---
Documentation for date of: 06/05/24 Subjective Subjective Interval history: No overnight events. Patient seen examined at bedside, resting comfortably. Patient denies fever, chills, chest pain, shortness of breath. Goals of care help with family regarding possible hospice. Family needs additional time to consider options. Pending speech therapy eval due to recurrent aspirations. Antibiotics narrowed. Exam Vital Signs Temp Pulse Resp BP Pulse Ox O2 Del Method O2 Flow Rate 97.4 F 74 18 107/52 L 94 L Room Air 2 06/05/24 16:00 06/05/24 16:06/05/24 16:00 06/05/24 16:00 06/05/24 16:00 06/05/24 16:00 06/05/24 13:28 FiO2 50 05/31/24 06:30 Narrative Exam Gen: Well-developed and well-nourished. Slouched over, unable to maintain good posture. HEENT: NCAT, PERRLA, EOMI, MMM, anicteric conjunctivae. CVS: normal S1 and S2. RRR. No M/R/G. Resp: Poor air movement and rhonchi throughout all lung coleman. Abd: soft, non-tender, non-distended. MSK: Good ROM in BUE & BLE. No edema or rash. Neuro: CN II-XII grossly intact. Strength 5/5 in BUE & BLE. A&O x 2, appropriately responsive, baseline. Objective Labs 06/05/24 10:46 06/05/24 10:46 Labs: Laboratory Results - last 24 hr 05/31/24 06/05/24 06:57 10:46 WBC 4.1 RBC 3.68 L Hgb 10.9 L Hct 34.5 L MCV 94 MCH 29.6 MCHC 31.6 RDW Std Deviation 48.7 H Plt Count 216 Neut % (Auto) 58 Lymph % (Auto) 27 [place] % (Auto) 9 Eos % (Auto) 5 Baso % (Auto) 1 Neut # (Auto) 2.4 Lymph # (Auto) 1.1 [place] # (Auto) 0.4 Eos # (Auto) 0.2 Baso # (Auto) 0.0 Immature Gran # (Auto) 0.03 H Absolute Nucleated RBC 0.00 Immature Gran % 1 H Nucleated RBC % 0 Sodium 143 Potassium 3.6 Chloride 104 Carbon Dioxide 37.8 H Anion Gap 1 L BUN 13 Creatinine 0.4 L Estim Creat Clear Calc 86.7 eGFR > 60 BUN/Creatinine Ratio 33 H Glucose 119 H Calculated Osmolality 286 Calcium 8.8 Corrected Calcium 9.4 Total Bilirubin 0.2 L AST 11 ALT < 7 L Alkaline Phosphatase 40 L Total Protein 6.2 Albumin 3.3 L Globulin 2.9 Albumin/Globulin Ratio 1.1 L Total Cortisol 20.8 ABG Interpretation ABG results: 05/30/24 05/30/24 12:24 19:14 ABG pH 7.29 L ABG pCO2 65 H ABG pO2 95 ABG HCO3 31 H ABG O2 Saturation 98 ABG Base Excess 3 VBG pH 7.42 VBG pCO2 42 VBG pO2 209 H VBG Base Excess 2 Quality Measures Quality Measures sepsis Current suspected stage: sepsis Possible source: pulmonary Blood cultures ordered: completed in ED Antibiotic ordered: Yes Advance care planning discussed with:: patient Assessment & Plan Assessment Current Active Medications: Generic Name Dose Route Start Last Admin Trade Name Freq PRN Reason Stop Dose Admin Albuterol/Ipratropium 3 ml 05/30/24 14:40 06/05/24 13:24 Albuterol/Ipratropium (Duoneb) Rt Poly 3 Ml Nebu INH 06/29/24 14:39 3 ml Q6HRRT SANDOVAL Administration Enoxaparin Sodium 40 mg 05/31/24 09:00 06/05/24 08:50 Enoxaparin Sod Inj 40 Mg/0.4 Ml Syringe SC 06/14/24 08:59 40 mg QDAY SANDOVAL Administration Ceftriaxone Sodium/Dextrose 1 gm in 50 mls @ 100 mls/hr 06/05/24 10:45 06/05/24 10:56 Rocephin/D5w 1gm Iv Premix IV 06/12/24 10:44 100 mls/hr QDAY SANDOVAL Administration Levothyroxine Sodium 75 mcg 06/01/24 06:00 06/05/24 06:16 Levothyroxine Sodium 25 Mcg Tablet PO 07/01/24 05:59 75 mcg ACBR SANDOVAL Administration Oseltamivir Phosphate 75 mg 05/31/24 21:00 06/05/24 08:48 Oseltamivir 75 Mg Capsule PO 06/07/24 20:59 Not Given BID SANDOVAL Potassium Phos/Sodium Phos 1 packet 06/01/24 09:00 04/22/25 08:48 Naph,[facility] Mbdb 1 Packet (1.5 Gm) PO 07/01/24 08:59 Not Given BID SANDOVAL Sennosides 2 tab 06/04/24 10:13 Senna Tablet PO 07/05/24 08:59 QDAY PRN CONSTIPATION Protocol Plan 83-year-old female with past medical history of hypertension, hypothyroidism, 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 #Acute encephalopathy (resolved) secondary to #Acute hypoxic/hypercapnic respiratory failure (resolved) secondary to # Influenza pneumonia, possible hospital associated pneumonia #Sepsis Patient presented from SNF with chief complaint of altered mental status and hypoxia. Patient uses 2 L of O2 via nasal cannula as needed, frequently on room air. Patient shortness of breath for 1 day, as well as noted to be hypoxic and lethargic, was brought to ED. Patient had no leukocytosis, but did have fever 102.4. Pro-Rafita negative. Patient on 10 L via oxymask to maintain saturation greater than 90%. ABG was taken, showed pH 7.29, PCO2 65, pO2 95. Influenza test was positive. Chest x-ray showed bibasilar pneumonia. Patient is sepsis by clear source of infection, endorgan damage as demonstrated by encephalopathy, presents with fever and hypoxia. Patient had 2 visits within the past month for acute hypoxic respiratory failure, received treatment with antibiotics and Tamiflu. On exam patient notably obtunded. Following day patient significant proved, A&O x 2 which is patient's baseline. Oxygen titrated down to 3 L, patient is an oxy mask as desats on nasal cannula. Patient uses 2 L as needed at home. Blood cultures grew Staphylococcus hemolyticus 1/2, likely contaminant. Negative repeat blood cultures at 48 hours and both bottles. Negative MRSA screen, will discontinue vancomycin. Will continue cefepime and Tamiflu for treatment of pneumonia. Patient had episode of desaturation requiring increased oxygen delivery. CT showed bibasilar pneumonia, primarily left base, pattern concerning for aspiration. Blood cultures speciated into staph ?haemolyticus 1/2, repeat cultures negative, likely contamination. Goals of care conversation held with patient's sister due to recurrent aspiration requiring multiple admits, poor prognosis. Patient's family needs time to consider options. - Geni every 6 hours scheduled - Cefepime 2 g IV every 8 hours (05/30-06/05) - Vancomycin pharmacy dosing (06/01 -06/03) - Rocephin 1 g IV daily (06/05?06/07) - Continuous pulse oximetry - Tamiflu - Reconsulted speech therapy - O2, titrate as needed #Hypertension, currently controlled #Hypothyroidism Patient history as stated. This visit TSH 0.89, free T4 1.29. - Resume home meds, levothyroxine 75 mcg p.o. daily #TBI, patient history Patient history as stated. Patient with poor posture, bedbound, mumbles words at baseline. Patient currently encephalopathic. Encephalopathy resolved. DVT prophylaxis: Lovenox GI prophylaxis: None Diet: Pur?ed diet Lines: Peripheral IV Code status: DNR/DNI Plan of care discussed with attending Dr. Lares. Dennis Bolaños MD PGY?1 Attending Provider Attestation/Addendum I reviewed labs, imaging, EKG, home medications and prior available records. Face to face evaluation was performed by me. I have personally examined the patient and discussed assessment and plan with the IM team. I reviewed the resident note and agree with the plan with exceptions as below. Acute hypoxic respiratory failure Influenza A Healthcare associated pneumonia Gram-positive bacteremia Goals of care discussion/counseling Oxygen needs are stable less than 5 L Finish a course of vancomycin/cefepime Tamiflu for 5 days First set of blood cultures showed staph H. likely contamination. Repeat blood culture: Negative to date Ordered CT scan of the chest that showed pneumonia in both lower lobes, likely aspiration Ordered repeat swallow evaluation She is DNR/DNI. She is high risk of readmission and recurrence of pneumonia Discussed with high school social science teacher: Discussed goals of care with sister: Sister is now aware of the poor prognosis and high risk of aspiration/rehospitalization
[2024-06-05] MEDS: NAPH,KPH MBDB 1 PACKET (1.5 GM) PO (20:49)
[2024-06-05] MEDS: OSELTAMIVIR 75 MG CAPSULE PO (20:49)
[2024-06-06] VITALS (14 sets, daily range): BP systolic 105–130; BP diastolic 51–72; PULSE 60–78; RESP 12–19; TEMP 35.8–36.4; O2SAT 75–100; BMI 28.4
[2024-06-06] MEDS: ALBUTEROL/IPRATROPIUM (Duoneb) RT SOL 3 ML NEBU INH ×4 (00:53→18:36)
[2024-06-06] MEDS: LEVOTHYROXINE SODIUM 25 MCG TABLET 75 MCG PO (06:26)
[2024-06-06] MEDS: ENOXAPARIN SOD INJ 40 MG/0.4 ML SYRINGE SC (09:11)
[2024-06-06] MEDS: NAPH,KPH MBDB 1 PACKET (1.5 GM) PO ×2 (09:11→21:23)
[2024-06-06] MEDS: OSELTAMIVIR 75 MG CAPSULE PO ×2 (09:11→21:23)
[2024-06-06] MEDS: cefTRIAXone/D5w 1gm IV premix 1 GM/50 ML BAG IV (09:11)
--- NOTE | 2024-06-06 09:24 | PC.SS ---
Addendum entered by ORLY Mar 06/06/24 16:54: SS update: received call from patient's sister Marry, who states [facility] is the preferred agency. Sent hospice referral to [facility] via [employer]. Plan is to d/c the patient tomorrow with [facility] with hospice services. Addendum entered by ORLY Mar 06/06/24 16:20: SS follow up: attempted contact with patient's sister Marry Francis [phone] regarding her preferred hospice agency. Marry did not answer and unable to leave . Addendum entered by ORLY Mar 06/06/24 13:04: SS follow up: spoke with patient's sister Marry regarding hospice agency preference, she informed she will conduct some research and will notify me preferred agency this afternoon. Addendum entered by ORLY Mar 06/06/24 09:32: SS follow up: spoke with Kalpana at [facility], who confirmed the patient can return to facility with hospice services tomorrow for an open bed. Notified Dr. Card on discharge plan and request for hospice order. Original Note: SS follow: spoke with patient's sister Marry Francis [phone] regarding her options with hospice services. After explaining the services to Marry, she was agreeable. Marry would like patient to return back to [facility] with Hospice services.
--- NOTE | 2024-06-06 14:42 | ESPR_ITS ---
Documentation for date of: 06/06/24 Subjective Subjective Interval history: No overnight events. Patient seen, bedside, resting partially. Patient endorses mild shortness of breath, otherwise feels well. Patient and family have decided to begin hospice. Hospice referral placed. Patient will DC tomorrow to [facility] on hospice care. Avoid unnecessary/overly invasive procedures. Exam Vital Signs Temp Pulse Resp BP Pulse Ox O2 Del Method O2 Flow Rate 96.5 F L 68 18 130/70 98 Nasal Cannula 3 06/06/24 11:18 06/06/24 12:13 06/06/24 12:13 06/06/24 11:18 06/06/24 12:13 06/06/24 11:18 06/06/24 12:13 FiO2 50 05/31/24 06:30 Narrative Exam Gen: Well-developed and well-nourished. Slouched over, unable to maintain good posture. HEENT: NCAT, PERRLA, EOMI, MMM, anicteric conjunctivae. CVS: normal S1 and S2. RRR. No M/R/G. Resp: Poor air movement and rhonchi throughout all lung coleman. Abd: soft, non-tender, non-distended. MSK: Good ROM in BUE & BLE. No edema or rash. Neuro: CN II-XII grossly intact. Strength 5/5 in BUE & BLE. A&O x 2, appropriately responsive, baseline. Objective Labs 06/05/24 10:46 06/05/24 10:46 ABG Interpretation ABG results: 05/30/24 05/30/24 12:24 19:14 ABG pH 7.29 L ABG pCO2 65 H ABG pO2 95 ABG HCO3 31 H ABG O2 Saturation 98 ABG Base Excess 3 VBG pH 7.42 VBG pCO2 42 VBG pO2 209 H VBG Base Excess 2 Quality Measures Quality Measures sepsis Current suspected stage: sepsis Possible source: pulmonary Blood cultures ordered: completed in ED Antibiotic ordered: Yes Advance care planning discussed with:: patient and sibling Assessment & Plan Assessment Current Active Medications: Generic Name Dose Route Start Last Admin Trade Name Freq PRN Reason Stop Dose Admin Albuterol/Ipratropium 3 ml 05/30/24 14:40 06/06/24 12:12 Albuterol/Ipratropium (Duoneb) Rt Oply 3 Ml Nebu INH 05/16/25 14:39 3 ml Q6HRRT SANDOVAL Administration Enoxaparin Sodium 40 mg 05/31/24 09:00 06/06/24 09:11 Enoxaparin Sod Inj 40 Mg/0.4 Ml Syringe SC 06/14/24 08:59 40 mg QDAY SANDOVAL Administration Ceftriaxone Sodium/Dextrose 1 gm in 50 mls @ 100 mls/hr 06/05/24 10:45 06/06/24 09:11 Rocephin/D5w 1gm Iv Premix IV 06/12/24 10:44 100 mls/hr QDAY SANDOVAL Administration Levothyroxine Sodium 75 mcg 06/01/24 06:00 06/06/24 06:26 Levothyroxine Sodium 25 Mcg Tablet PO 07/01/24 05:59 75 mcg ACBR SANDOVAL Administration Oseltamivir Phosphate 75 mg 05/31/24 21:00 06/06/24 09:11 Oseltamivir 75 Mg Capsule PO 06/07/24 20:59 75 mg BID SANDOVAL Administration Potassium Phos/Sodium Phos 1 packet 06/01/24 09:00 06/06/24 09:11 Naph,[facility] Mbdb 1 Packet (1.5 Gm) PO 07/01/24 08:59 1 packet BID SANDOVAL Administration Sennosides 2 tab 06/04/24 10:13 Senna Tablet PO 07/05/24 08:59 QDAY PRN CONSTIPATION Protocol Plan 83-year-old female with past medical history of hypertension, hypothyroidism, 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 #Acute encephalopathy (resolved) secondary to #Acute hypoxic/hypercapnic respiratory failure (resolved) secondary to # Influenza pneumonia, possible hospital associated pneumonia #Sepsis Patient presented from SNF with chief complaint of altered mental status and hypoxia. Patient uses 2 L of O2 via nasal cannula as needed, frequently on room air. Patient shortness of breath for 1 day, as well as noted to be hypoxic and lethargic, was brought to ED. Patient had no leukocytosis, but did have fever 102.4. Pro-Rafita negative. Patient on 10 L via oxymask to maintain saturation greater than 90%. ABG was taken, showed pH 7.29, PCO2 65, pO2 95. Influenza test was positive. Chest x-ray showed bibasilar pneumonia. Patient is sepsis by clear source of infection, endorgan damage as demonstrated by encephalopathy, presents with fever and hypoxia. Patient had 2 visits within the past month for acute hypoxic respiratory failure, received treatment with antibiotics and Tamiflu. On exam patient notably obtunded. Following day patient significant proved, A&O x 2 which is patient's baseline. Oxygen titrated down to 3 L, patient is an oxy mask as desats on nasal cannula. Patient uses 2 L as needed at home. Blood cultures grew Staphylococcus hemolyticus 1/2, likely contaminant. Negative repeat blood cultures at 48 hours and both bottles. Negative MRSA screen, will discontinue vancomycin. Will continue cefepime and Tamiflu for treatment of pneumonia. Patient had episode of desaturation requiring increased oxygen delivery. CT showed bibasilar pneumonia, primarily left base, pattern concerning for aspiration. Blood cultures speciated into staph ?haemolyticus /, repeat cultures negative, likely contamination. Goals of care conversation held with patient's sister due to recurrent aspiration requiring multiple admits, poor prognosis. Patient's family and patient have decided to begin hospice care. Will discharge back to [facility] on hospice care tomorrow. - DuoNebs every 6 hours scheduled - Cefepime 2 g IV every 8 hours (05/30-06/05) - Vancomycin pharmacy dosing (06/01 -06/03) - Rocephin 1 g IV daily (06/05?06/07) - Continuous pulse oximetry - Tamiflu - O2, titrate as needed #Hypertension, currently controlled #Hypothyroidism Patient history as stated. This visit TSH 0.89, free T4 1.29. - Resume home meds, levothyroxine 75 mcg p.o. daily #TBI, patient history Patient history as stated. Patient with poor posture, bedbound, mumbles words at baseline. Patient currently encephalopathic. Encephalopathy resolved. DVT prophylaxis: Lovenox GI prophylaxis: None Diet: Pur?ed diet Lines: Peripheral IV Code status: DNR/DNI Plan of care discussed with attending Dr. Lares. Dennis Bolaños MD PGY?1 Attending Provider Attestation/Addendum I reviewed labs, imaging, EKG, home medications and prior available records. Face to face evaluation was performed by me. I have personally examined the patient and discussed assessment and plan with the IM team. I reviewed the resident note and agree with the plan with exceptions as below. Acute hypoxic respiratory failure Influenza A Healthcare associated pneumonia Gram-positive bacteremia Goals of care discussion/counseling Oxygen needs are stable less than 5 L Finish a course of vancomycin/cefepime Finish a course of Tamiflu First set of blood cultures showed staph H. likely contamination. Repeat blood culture: Negative to date Ordered CT scan of the chest that showed pneumonia in both lower lobes, likely aspiration Ordered repeat swallow evaluation She is DNR/DNI. She is high risk of readmission and recurrence of pneumonia Discussed goals of care again with the sister on 06/06. Explained the poor prognosis. Decision was made to transition to hospice. Discussed with high school social studies teacher: She is working on the placement
[2024-06-07] VITALS (13 sets, daily range): BP systolic 100–139; BP diastolic 54–87; PULSE 61–75; RESP 12–18; TEMP 36.1–36.8; O2SAT 92–100; BMI 28.5
[2024-06-07] MEDS: ALBUTEROL/IPRATROPIUM (Duoneb) RT SOL 3 ML NEBU INH ×4 (01:51→18:49)
[2024-06-07] MEDS: LEVOTHYROXINE SODIUM 25 MCG TABLET 75 MCG PO (05:06)
[2024-06-07] MEDS: NAPH,KPH MBDB 1 PACKET (1.5 GM) PO ×2 (07:55→21:12)
[2024-06-07] MEDS: OSELTAMIVIR 75 MG CAPSULE PO (07:55)
[2024-06-07] MEDS: cefTRIAXone/D5w 1gm IV premix 1 GM/50 ML BAG IV (08:03)
[2024-06-07] MEDS: ENOXAPARIN SOD INJ 40 MG/0.4 ML SYRINGE SC (08:04)
--- NOTE | 2024-06-07 08:54 | PC.SS ---
Addendum entered by ORLY Mar 06/07/24 10:27: Transportation was cancelled. Notified resident Dr. Card on status. Addendum entered by ORLY Mar 06/07/24 10:24: SS update: per Kalpana at [facility], they cannot accept the patient today at their facility and the plan is to accept the patient tomorrow with [facility]. Updated bed side nurse Dejah, medical team Dr. Gurrola and Rosy with [facility]. Attempted to notify patient's sister Marry, however no success, updated bed side nurse. Addendum entered by ORLY Mar 06/07/24 08:59: SS update: [email or web address] transportation reference number: [id number]. Pending ETA. Original Note: SS follow up: per bed side nurse, patient to complete tamiflu dosage today and would be ready for discharge after 1pm.
--- NOTE | 2024-06-07 15:01 | ESPR_ITS ---
Documentation for date of: 06/07/24 Subjective Subjective Interval history: No overnight events. Patient seen and examined at bedside, resting comfortably. Denies fevers, chills, shortness of breath, chest pain, nausea, vomiting. Plan to DC tomorrow on hospice. Exam Vital Signs Temp Pulse Resp BP Pulse Ox O2 Del Method O2 Flow Rate 96.9 F 69 18 113/57 L 96 Nasal Cannula 2 06/07/24 11:34 06/07/24 12:06 06/07/24 12:06 06/07/24 11:34 06/07/24 12:06 06/07/24 11:34 06/07/24 12:06 FiO2 50 05/31/24 06:30 Narrative Exam Gen: Well-developed and well-nourished. Slouched over, unable to maintain good posture. HEENT: NCAT, PERRLA, EOMI, MMM, anicteric conjunctivae. CVS: normal S1 and S2. RRR. No M/R/G. Resp: Poor air movement and rhonchi throughout all lung coleman. Abd: soft, non-tender, non-distended. MSK: Good ROM in BUE & BLE. No edema or rash. Neuro: CN II-XII grossly intact. Strength 5/5 in BUE & BLE. A&O x 2, appropriately responsive, baseline. Objective Labs 06/05/24 10:46 06/05/24 10:46 ABG Interpretation ABG results: 05/30/24 05/30/24 12:24 19:14 ABG pH 7.29 L ABG pCO2 65 H ABG pO2 95 ABG HCO3 31 H ABG O2 Saturation 98 ABG Base Excess 3 VBG pH 7.42 VBG pCO2 42 VBG pO2 209 H VBG Base Excess 2 Quality Measures Quality Measures sepsis Current suspected stage: sepsis Possible source: pulmonary Blood cultures ordered: completed in ED Antibiotic ordered: Yes Advance care planning discussed with:: patient Assessment & Plan Assessment Current Active Medications: Generic Name Dose Route Start Last Admin Trade Name Freq PRN Reason Stop Dose Admin Albuterol/Ipratropium 3 ml 05/30/24 14:40 06/07/24 12:05 Albuterol/Ipratropium (Duoneb) Rt Poly 3 Ml Nebu INH 06/29/24 14:39 3 ml Q6HRRT SANDOVAL Administration Enoxaparin Sodium 40 mg 05/31/24 09:00 06/07/24 08:04 Enoxaparin Sod Inj 40 Mg/0.4 Ml Syringe SC 06/14/24 08:59 40 mg QDAY SANDOVAL Administration Levothyroxine Sodium 75 mcg 06/01/24 06:00 06/07/24 05:06 Levothyroxine Sodium 25 Mcg Tablet PO 07/01/24 05:59 75 mcg ACBR SANDOVAL Administration Potassium Phos/Sodium Phos 1 packet 06/01/24 09:00 06/07/24 07:55 Naph,[facility] Mbdb 1 Packet (1.5 Gm) PO 07/01/24 08:59 1 packet BID SANDOVAL Administration Sennosides 2 tab 06/04/24 10:13 Senna Tablet PO 07/05/24 08:59 QDAY PRN CONSTIPATION Protocol Plan 83-year-old female with past medical history of hypertension, hypothyroidism, 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 #Acute encephalopathy (resolved) secondary to #Acute hypoxic/hypercapnic respiratory failure (resolved) secondary to #Influenza pneumonia, possible hospital associated pneumonia #Sepsis Patient presented from SNF with chief complaint of altered mental status and hypoxia. Patient uses 2 L of O2 via nasal cannula as needed, frequently on room air. Patient shortness of breath for 1 day, as well as noted to be hypoxic and lethargic, was brought to ED. Patient had no leukocytosis, but did have fever 102.4. Pro-Rafita negative. Patient on 10 L via oxymask to maintain saturation greater than 90%. ABG was taken, showed pH 7.29, PCO2 65, pO2 95. Influenza test was positive. Chest x-ray showed bibasilar pneumonia. Patient is sepsis by clear source of infection, endorgan damage as demonstrated by encephalopathy, presents with fever and hypoxia. Patient had 2 visits within the past month for acute hypoxic respiratory failure, received treatment with antibiotics and Tamiflu. On exam patient notably obtunded. Following day patient significant proved, A&O x 2 which is patient's baseline. Oxygen titrated down to 3 L, patient is an oxy mask as desats on nasal cannula. Patient uses 2 L as needed at home. Blood cultures grew Staphylococcus hemolyticus 1/2, likely contaminant. Negative repeat blood cultures at 48 hours and both bottles. Negative MRSA screen, will discontinue vancomycin. Will continue cefepime and Tamiflu for treatment of pneumonia. Patient had episode of desaturation requiring increased oxygen delivery. CT showed bibasilar pneumonia, primarily left base, pattern concerning for aspiration. Blood cultures speciated into staph ?haemolyticus 02/15, repeat cultures negative, likely contamination. Goals of care conversation held with patient's sister due to recurrent aspiration requiring multiple admits, poor prognosis. Patient's family and patient have decided to begin hospice care. Will discharge back to [facility] on hospice care tomorrow. Patient completed treatment with IV antibiotics and Tamiflu. - DuoNebs every 6 hours scheduled - Continuous pulse oximetry - O2, titrate as needed #Hypertension, currently controlled #Hypothyroidism Patient history as stated. This visit TSH 0.89, free T4 1.29. - Resume home meds, levothyroxine 75 mcg p.o. daily #TBI, patient history Patient history as stated. Patient with poor posture, bedbound, mumbles words at baseline. Patient currently encephalopathic. Encephalopathy resolved. DVT prophylaxis: Lovenox GI prophylaxis: None Diet: Pur?ed diet Lines: Peripheral IV Code status: DNR/DNI Plan of care discussed with attending Dr. Lares. Dennis Bolaños MD PGY?1 Attending Provider Attestation/Addendum I reviewed labs, imaging, EKG, home medications and prior available records. Face to face evaluation was performed by me. I have personally examined the patient and discussed assessment and plan with the IM team. I reviewed the resident note and agree with the plan with exceptions as below. Acute hypoxic respiratory failure Influenza A Healthcare associated pneumonia Gram-positive bacteremia Goals of care discussion/counseling Oxygen needs are stable less than 5 L Finish a course of vancomycin/cefepime Finish a course of Tamiflu First set of blood cultures showed staph H. likely contamination. Repeat blood culture: Negative to date Ordered CT scan of the chest that showed pneumonia in both lower lobes, likely aspiration Continue frequent suctioning Ordered repeat swallow evaluation She is DNR/DNI. She is high risk of readmission and recurrence of pneumonia Discussed goals of care again with the sister on 06/06. Explained the poor prognosis. Decision was made to transition to hospice. Discussed with social worker delinquency prevention: Discharge on 06/08 as she needs to stay 24 hours after finishing Tamiflu
[2024-06-08] VITALS (9 sets, daily range): BP systolic 103–138; BP diastolic 60–81; PULSE 64–81; RESP 13–20; TEMP 35.8–36.4; O2SAT 91–98; BMI 29.0
[2024-06-08] MEDS: ALBUTEROL/IPRATROPIUM (Duoneb) RT SOL 3 ML NEBU INH ×3 (02:05→12:11)
[2024-06-08] MEDS: LEVOTHYROXINE SODIUM 25 MCG TABLET 75 MCG PO (05:26)
[2024-06-08] MEDS: ENOXAPARIN SOD INJ 40 MG/0.4 ML SYRINGE SC (08:14)
[2024-06-08] MEDS: NAPH,KPH MBDB 1 PACKET (1.5 GM) PO (08:15)
--- NOTE | 2024-06-08 09:44 | PC.SS ---
Addendum entered by Yessica Jones 06/08/24 15:13: SS attempted to coordinate with [employer] all day to set up transport with no confirmation of provider. SS had to receive an [employer] for transport due to patient needing an early time to coordinate with hospice. customer service supervisor time scheduled for 4p.m. supervisor picking crew. Notified all parties. Original Note: Follow up note: SS received a call from Rosy Brady @ [facility] that they are ready for patient today. SS spoke to [facility] and they will be ready for patient by 2p.m. today. Updated nursing. Uploaded to [employer] platform and [place] dispatch. Pending confirmation time. SS will notify patient's sister, Marry.
--- NOTE | 2024-06-08 11:30 | PD.RESDS ---
Planned Discharge Date 06/08/24 DS: Providers Provider Date of admission: 05/31/24 14:35 Primary care physician: Physician No Primary/Family Admitting Provider: Rodrigue Hernandez MD Attending Provider on Admission: Augustine Lares MD Consults: 05/31/24 05:00 Referral Speech Therapy Routine Comment: 06/06/24 10:52 Referral Hospice Urgent Comment: Attending Provider on DC: Augustine Lares MD Discharging Provider: Dennis Bolaños MD DS: Diagnosis Problem List Completed Was Problem List Reviewed/Reconciled?: Yes Hospital Course Hospital Course Hospital course: 83 y/o F with PMH of hypertension, hypothyroidism, 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 Patient completed course of IV antibiotics and Tamiflu. During questioning, patient multiple episodes of desaturation typically resolved quickly. CT scan was ordered for further evaluation, showed signs of aspiration. Extensive goals of care was held with patient and her family including decision-maker, regarding patient's poor prognosis in the setting of multiple recent hospital admissions and frequent aspiration. Decision was made to place patient on hospice care in line with her values and wishes. Patient medically stable and cleared for discharge to SNF with hospice care. Discharge plan: You are being discharged on hospice. The following medications have been stopped: - Atorvastatin Please continue taking all the medications as previously prescribed. Further management as per hospice team. Diagnoses: #Acute encephalopathy (resolved) secondary to #Acute hypoxic/hypercapnic respiratory failure (resolved) secondary to #Influenza pneumonia, possible hospital associated pneumonia #Sepsis #Hypertension, currently controlled #Hypothyroidism #TBI, patient history Plan of care discussed with attending Dr. Lares. Dennis Bolaños MD PGY?1 Status at Discharge Overall status at discharge: patient is progressing back to baseline Time Spent with Patient Time attestation: Total time spent providing and/or coordinating discharge services: Time spent: Greater than 30 minutes Exam Vital Signs Temp Pulse Resp BP Pulse Ox O2 Del Method O2 Flow Rate 96.4 F L 75 16 138/65 H 92 L Nasal Cannula 3 06/08/24 08:00 06/08/24 08:00 06/08/24 08:00 06/08/24 08:00 06/08/24 08:00 06/08/24 08:00 06/08/24 08:00 FiO2 50 06/08/24 08:00 Narrative Exam Gen: Well-developed and well-nourished. Slouched over, unable to maintain good posture. HEENT: NCAT, PERRLA, EOMI, MMM, anicteric conjunctivae. CVS: normal S1 and S2. RRR. No M/R/G. Resp: Poor air movement and rhonchi throughout all lung coleman. Abd: soft, non-tender, non-distended. MSK: Good ROM in BUE & BLE. No edema or rash. Neuro: CN II-XII grossly intact. Strength 5/5 in BUE & BLE. A&O x 2, appropriately responsive, baseline. Discharge Plan Plan Patient Disposition: Xfer Skilled Nsg Fac (SNF) Disposition Comment: w/[facility] Patient condition on transfer: Stable and Benefits outweigh risks Care Plan Goals: You are being discharged on hospice. The following medications have been stopped: - Atorvastatin Please continue taking all the medications as previously prescribed. Further management as per hospice team. Prescriptions/Referrals Prescriptions/Med Rec: Continued magnesium hydroxide [Milk of Magnesia] 400 mg/5 mL Suspension 30 ml PO Q48H PRN (Reason: Constipation) Rx Instructions: GIve 30 mls by mouth every 2nd day if no bowel movement as needed bisacodyl [Dulcolax (bisacodyl)] 10 mg Suppository 10 mg NH Q72H PRN (Reason: Constipation) Rx Instructions: Insert 1 suppository rectally every third day if no bowel movement as needed if Milk of Magnesia ineffective Fleet Enema 19-7 gram/118 mL Enema See Rx Instructions .ROUTE .COMPLEX PRN (Reason: Constipation) Rx Instructions: Insert 1 applicator rectally every third day if no bowel movement as needed, if dulcolax suppository ineffective calcium carbonate-vitamin D3 [Oyster Shell Calcium-Vit D3] 500 mg(1,250mg) -200 unit Tablet 1 tab PO BID levothyroxine 75 mcg tablet 75 mcg PO 1XD nystatin-triamcinolone 100,000-0.1 unit/g-% cream 1 applic TOPICAL 1XD Rx Instructions: apply to neck for redness albuterol sulfate 90 mcg/actuation HFA aerosol inhaler 1 inh inhalation QID PRN (Reason: shortness of breath or wheezing) Qty: 8.5 0RF docusate sodium 100 mg capsule 200 mg PO BID acetaminophen 325 mg capsule 650 mg PO Q6H PRN (Reason: pain) Rx Instructions: for pain rated 1-4 polyvinyl alcohol [Artificial Tears (polyvin alc)] 1.4 % drops 2 drp ophthalmic (eye) [id number] Daily Multivitamin-Minerals Tablet 1 tab PO QDAY ascorbic acid (vitamin C) [Vitamin C] 500 mg tablet 500 mg PO BID amino acids-protein hydrolys 15-72 gram-kcal/30 mL liquid 30 ml PO DAILY midodrine 2.5 mg Tablet 2.5 mg PO TID Rx Instructions: hold if systolic blood pressure greater than 140 or diastolic blood pressure greater than 100 balsam ben-castor oil [Venelex] Ointment 1 applicatio top DAILY Discontinued atorvastatin 10 mg Tablet 10 mg PO HS Qty: 90 0RF Referrals: No Primary/Family,Physician [Primary Care Provider] - Patient/Caregiver Discharge Instructions Discharge Activity: activity as tolerated Education Materials: Hospice Dyspnea Care, ED Influenza (Adult) Print Language: Uzbek Stand Alone Forms: [employer] Award Info., Patient Portal Info Letter Discharge Order Discharge Orders: Discharge (Routine); Ordered 06/08/24 Ordered By: Dennis Bolaños Quality Discharge Quality Measures VTE prophylaxis Attestestation MD Attestation I reviewed labs, imaging, EKG, home medications and prior available records. Face to face evaluation was performed by me. I have personally examined the patient and discussed assessment and plan with the IM team. I reviewed the resident note and agree with the plan with exceptions as below. Acute hypoxic respiratory failure Influenza A Healthcare associated pneumonia Gram-positive bacteremia Goals of care discussion/counseling Oxygen needs are stable less than 5 L Finished a course of vancomycin/cefepime Finished a course of Tamiflu First set of blood cultures showed staph H. likely contamination. Repeat blood culture: Negative to date Ordered CT scan of the chest that showed pneumonia in both lower lobes, likely aspiration Continue frequent suctioning Allow pleasure diet since she is going hospice She is DNR/DNI. She is high risk of readmission and recurrence of pneumonia Discussed goals of care again with the sister on 06/06. Explained the poor prognosis. Decision was made to transition to hospice. Discussed with social sciences research scientist: Discharge on 06/08 as she needs to stay 24 hours after finishing Tamiflu Time spent is 40 minutes. More than 50% of the time was spent on patient education and coordination of care.
== END 2024-06-08 16:05 | disposition skilled nursing facility (03) | DRG 871 ==
LOC: SERX 09:09 → SERHOLD 14:30 → S3NX 06-01 08:47 → SERHOLD 06-05 07:31
PROVIDERS: Student in an Organized Health Care Education/Training Program; Admitting Provider Internal Medicine; Emergency Provider Emergency Medicine; Visit Provider Student in an Organized Health Care Education/Training Program
DX: A41.89 Other specified sepsis (principal); G93.41 Metabolic encephalopathy; J96.01 Acute respiratory failure with hypoxia; J96.02 Acute respiratory failure with hypercapnia; J10.01 Influenza due to other identified influenza virus with the same other identified influenza virus pneumonia; J69.0 Pneumonitis due to inhalation of food and vomit; E87.29 Other acidosis; J10.1 Influenza due to other identified influenza virus with other respiratory manifestations; I10 Essential (primary) hypertension; E03.9 Hypothyroidism, unspecified; K21.9 Gastro-esophageal reflux disease without esophagitis; E83.39 Other disorders of phosphorus metabolism; S06.9XAS Unspecified intracranial injury with loss of consciousness status unknown, sequela; Z66 Do not resuscitate; Y95 Nosocomial condition; Z74.01 Bed confinement status; Z51.5 Encounter for palliative care; Z79.890 Hormone replacement therapy; Z79.899 Other long term (current) drug therapy; X58.XXXS Exposure to other specified factors, sequela
CPT/HCPCS: 36415; 36600; 70450; 71045; 71260; 80053; 80202; 81001; 82533; 82803; 83605; 83735; 84100; 84145; 84439; 84443; 85025; 87040; 87077; 87081; 87186; 87400; 87811; 92526; 92610; 93005; 93225; 94640; 94660; 96361; 96365; 99291; A4649; A9270; G0378; J0692; J0696; J1650; J2543; J3370; J7030; J7050; J7120; Q9967